=== PATIENT | female | born 1935 | race Caucasian/White ===

== ENCOUNTER 2017-12-09 13:50 | Emergency (ER) | payer MEDICARE, OTHER, SELFPAY ==
[2017-12-09 13:51] VITALS: BP 135/65; PULSE 54; RESP 17; TEMP 37; O2SAT 92; BMI 19.2
[2017-12-09 15:36] LABS: Mucous, Urine 0 SEEN /hpf (<or=2+)
[2017-12-09 15:45] LABS: Color, Urine Yellow (Yellow); Glucose, Dipstick Normal (Normal); Ketone-Dipstick Negative (Negative); Leukocyte Esterase-Dipstick 500 /ul (Negative); Nitrite-Dipstick Negative (Negative); Occult Blood-Urine 50 /ul (Negative); Protein-Dipstick 15 mg/dl (Negative); Urine Bilirubin Dipstick Negative (Negative); Urine Clarity Clear (Clear); Urine Urobilinogen Normal (Normal); Urine pH 6.5 (5.0 - 8.0)
[2017-12-09 15:49] LABS: Bacteria 1+ /hpf (None Seen); Red Blood Cells-Urine 0-5 SEEN /hpf (0-5); Squamous Epithelial Cells - UA 0-5 SEEN /hpf (5-10); White Blood Cells 10-25 SEEN /hpf (0-5)
[2017-12-09 15:49] LABS: Absolute Lymphocyte Count 0.92 X10^3/ul (0.83-4.51); Absolute Neutrophil Count 3.7 X10^3/uL (2.0-7.7); Basophil# 0.02 X10^3/uL; Basophil% 0.4 % (0-1); Eosinophil# 0.04 X10^3/uL; Eosinophils% 0.7 % (0-5); Hematocrit 44.4 % (37-47); Hemoglobin 14.2 g/dl (12.0-15.0); Lymphocyte # 0.92 X10^3/ul (4.0); Lymphocyte % 16.7 % (19-41); Mean Corpuscular Hgb 30.9 pg (27.0-32.0); Mean Corpuscular Volume 96.7 fL (81-99); Mean Platelet Vol. 10.5 fl (6.2-12.0); Monocyte# 0.79 X10^3/uL; Monocyte% 14.3 % (0-10); Neutrophil # 3.73 X10^3/uL (2.7-7.7); Neutrophil % 67.7 % (47-70); Platelet Count 170 K/mm3 (150-450); RBC Distribution Width CV 14.8 % (11.6-14.6); RBC Distribution Width SD 51.4 fl (35.1-43.9); Red Blood Count 4.59 M/mm3 (4.2-5.4); White Blood Count 5.5 K/mm3 (4.4-11.0)
--- NOTE | 2017-12-09 15:50 | RAD_ITS ---
STUDY: X-RAY - LUMBAR SPINE REASON FOR EXAM: Female, 82 years old. Severe low back pain TECHNIQUE: 3 view(s) of the lumbar spine were obtained. COMPARISON: None FINDINGS: Normal lumbar lordosis. There is no substantial scoliosis. There is a grade 1 anterolisthesis of L4 relative to L5, and of L5 relative to S1. There is moderately severe compression deformities of T11, L3, and L4. There is narrowing of the L4-5 and L5-S1 disc spaces. There are calcified plaques of the abdominal aorta. RAD/Lumbar Spine 2 or 3 Views IMPRESSION: 1. Grade 1 anterolisthesis of L4 relative to L5 and of L5 relative to S1. 2. Moderately severe old compression deformities of T11, L3, and L4. 3. Narrowing of the L4-5 and L5-S1 disc spaces. 4. Calcified plaques of the abdominal aorta. Electronically Signed: Olaf Ghosh MD at 16:22 EDT , Service support ,
[2017-12-09 15:55] LABS: POSITIVE COUNT NO; POSITIVE DIFFERENTIAL NO; POSITIVE MORPHOLOGY NO
--- NOTE | 2017-12-09 15:56 | ED.DCSUM_ITS ---
- ER Visit Summary Date of Service: 12/09/17 Chief Complaint: Back pain History of Present Illness: The patient is a 82 F presenting with back pain. Her family states this has been going on for the past 2-3 days. She has a history of chronic back pain but has recently flared up. No known injury. She is scheduled to see her primary care physician Dr. Sampson tomorrow. Family was unsure if she could wait that long. She normally uses a walker at home. She has had no bowel or bladder incontinence. No fever. Patient denies chest pain. She has a history of dementia and history is limited. Physical Examination: Vitals are stable. Patient is afebrile. Alert no acute distress. HEENT exam is unremarkable. Neck is supple. Lungs are clear and equal bilaterally. Heart is regular rate and rhythm. Abdomen is soft nontender nondistended. Extremities are unremarkable. Back is nontender Skin is warm and dry. No focal neurologic deficit. Remainder of exam is unremarkable. Emergency Department Course and Treatment: Patient states her pain is well controlled currently. She is able to get up and walk to the bathroom without difficulty. CBC, chemistries unremarkable other than creatinine 1.2. Urinalysis shows 10-25 white blood cells with 1+ bacteria. Urine culture was sent. She is given Keflex. Discussed with Dr. Sampson who she has an appointment with at 10 AM. He is in agreement with close outpatient follow-up. Advised return to ED if worsening complaints. Disposition: Discharge home Impression: Chronic back pain, UTI This note was generated with [employer] dictation software. It may contain incorrect words, spelling, and punctuation that were not noted in review of the chart prior to signing ED Disposition - Plan for ED Patient: Disposition: Home or Assisted Living Chief Complaint: Back Instructions: ED Neck Back Pain General Prescriptions: Cephalexin [Keflex] 500 mg PO BID #14 capsule Referrals: Burak Sampson Chi, MD [Primary Care Provider] -
[2017-12-09 16:10] LABS: Anion Gap 3 (5-15); BUN 19 mg/dL (7-18); BUN/Creat Ratio 15.8 RATIO (10-20); Calcium,Total 9.3 mg/dL (8.5-10.1); Chloride 105 mmol/L (98-107); EST Glomerular Filtration Rate 46 mL/min (>60); Est Glom Filt Rate - Afr Amer 56 mL/min (>60); Estimated Creatinine Clearance 23.79 ml/min; Glucose 90 mg/dL (74-106); Potassium 4.1 mmol/L (3.5-5.1); Sodium Level 142 mmol/L (136-145)
--- NOTE | 2017-12-09 16:44 | ED.DEP ---
ED Disposition - Plan for ED Patient: Chief Complaint: Back Instructions: ED Neck Back Pain General Prescriptions: Cephalexin [Keflex] 500 mg PO BID #14 capsule Referrals: Burak Sampson Chi, MD [Primary Care Provider] -
[2017-12-09] MEDS: Cephalexin 250 MG Capsule 500 MG PO (16:46)
[2017-12-09 17:38] VITALS: BP 163/61; PULSE 51; RESP 16; O2SAT 93
== END 2017-12-09 17:39 | disposition home or self-care (01) ==
PROVIDERS: Emergency Provider Emergency Medicine; Family Provider Family Medicine Geriatric Medicine; PCP Family Medicine Geriatric Medicine
DX: M54.5 Low back pain (principal); G89.29 Other chronic pain; N39.0 Urinary tract infection, site not specified; I12.9 Hypertensive chronic kidney disease with stage 1 through stage 4 chronic kidney disease, or unspecified chronic kidney disease; N18.9 Chronic kidney disease, unspecified; F03.90 Unspecified dementia, unspecified severity, without behavioral disturbance, psychotic disturbance, mood disturbance, and anxiety; E78.00 Pure hypercholesterolemia, unspecified; M19.90 Unspecified osteoarthritis, unspecified site; Z79.82 Long term (current) use of aspirin; Z79.899 Other long term (current) drug therapy
CPT/HCPCS: 72100; 80048; 81001; 85025; 87086; 87088; 99284

== ENCOUNTER → 2017-12-10 11:30 | Outpatient (CLI) | payer MEDICARE, OTHER, SELFPAY ==
[2017-12-10 12:56] LABS: Absolute Lymphocyte Count 0.78 X10^3/ul (0.83-4.51); Absolute Neutrophil Count 4.6 X10^3/uL (2.0-7.7); Basophil# 0.02 X10^3/uL; Basophil% 0.3 % (0-1); Eosinophil# 0.04 X10^3/uL; Eosinophils% 0.7 % (0-5); Hematocrit 44.8 % (37-47); Hemoglobin 13.9 g/dl (12.0-15.0); Lymphocyte # 0.78 X10^3/ul (4.0); Lymphocyte % 12.8 % (19-41); Mean Corpuscular Hgb 30.1 pg (27.0-32.0); Mean Platelet Vol. 11.4 fl (6.2-12.0); Monocyte# 0.67 X10^3/uL; Neutrophil # 4.59 X10^3/uL (2.7-7.7); Platelet Count 188 K/mm3 (150-450); RBC Distribution Width CV 14.7 % (11.6-14.6); RBC Distribution Width SD 51.5 fl (35.1-43.9); Red Blood Count 4.62 M/mm3 (4.2-5.4); White Blood Count 6.1 K/mm3 (4.4-11.0)
[2017-12-10 12:57] LABS: POSITIVE COUNT NO; POSITIVE DIFFERENTIAL NO; POSITIVE MORPHOLOGY NO
[2017-12-10 13:22] LABS: ALB/GLOB Ratio 0.8 RATIO (0.9-2.4); AST(SGOT) 16 U/L (15-37); Alanine Aminotransfer ALT/SGPT 19 U/L (13-56); Albumin, Serum 3.3 g/dL (3.2-5.0); Alkaline Phosphatase 83 U/L (45-117); Anion Gap 5 (5-15); BUN 22 mg/dL (7-18); BUN/Creat Ratio 40.7 RATIO (10-20); Calcium,Total 9.4 mg/dL (8.5-10.1); Chloride 103 mmol/L (98-107); Creatinine, Serum 0.54 mg/dL (0.55-1.02); EST Glomerular Filtration Rate 115 mL/min (>60); Est Glom Filt Rate - Afr Amer 139 mL/min (>60); Globulin 4.1 g/dL (2.2-4.2); Glucose 90 mg/dL (74-106); Protein, Total 7.4 g/dL (6.4-8.2); Sodium Level 140 mmol/L (136-145); Thyroid Stim Hormone (TSH) 1.02 uIU/mL (0.358-3.74)
[2017-12-11 08:43] LABS: Vitamin D,25 Hydroxy 29.4 ng/mL (29.95-100.01)
== END ==
PROVIDERS: Family Provider Family Medicine Geriatric Medicine; PCP Family Medicine Geriatric Medicine; Visit Provider Family Medicine Geriatric Medicine
DX: E55.9 Vitamin D deficiency, unspecified (principal); I10 Essential (primary) hypertension
CPT/HCPCS: 36415; 80053; 82306; 84443; 85025

== ENCOUNTER → 2017-12-16 13:26 | Outpatient (CLI) | payer MEDICARE, OTHER, SELFPAY | PROVIDERS: Visit Provider Obstetrics & Gynecology | DX: M54.9 Dorsalgia, unspecified (principal) | CPT/HCPCS: 87086; 87088 ==

== ENCOUNTER 2018-02-21 21:06 | Inpatient (IN) | payer MEDICARE, OTHER, SELFPAY ==
[2018-02-21 21:07] VITALS: BP 111/51; PULSE 63; RESP 24; TEMP 36.8; O2SAT 95; BMI 18.2
--- NOTE | 2018-02-21 21:22 | ED.VISSUMM ---
- ER Visit Summary Date of Service: 02/21/18 Chief Complaint: Back pain History of Present Illness: The patient is a 82 F presenting with mid and lower back pain. She states this started approximately a week ago. She denies trauma. She has a history of chronic back pain and is in pain management. Family states over the past week she has had more difficulty getting up and walking. She lives at home with her . She denies fever. Denies chest pain or shortness of breath. Denies other complaints. Physical Examination: Vitals are stable. Patient is afebrile. Alert no acute distress. HEENT exam is unremarkable. Neck is supple. Nontender Lungs are clear and equal bilaterally. Heart is regular rate and rhythm. Abdomen is soft nontender nondistended. Back: Diffuse thoracic and lumbar tenderness Extremities are unremarkable. Skin is warm and dry. No focal neurologic deficit. Remainder of exam is unremarkable. Emergency Department Course and Treatment: Patient given morphine, Zofran IV. CBC, chemistries unremarkable other than hemoglobin 10.5, BUN 25, creatinine 0.54. Troponin is negative. Chest x-ray shows no acute process. Thoracic lumbar spine x-rays show osteopenia, kyphosis, old compression of T6 and T11. New mild superior endplate compression deformities of L1 and L2 since the prior exam of December 09, 2017. Stable moderate compression deformities of L3 and L4. Exaggerated lumbar lordosis with stable degenerative anterolisthesis of L3, L4 and L5 with intervening degenerative disc changes. Severe posterior facet arthrosis. Patient is unable to sit up on her own or get out of bed. states she will not be able to get up and go to the bathroom on her own. Will discuss with the hospitalist for admission. Disposition: Admission Impression: Intractable back pain, compression fractures This note was generated with [employer] dictation software. It may contain incorrect words, spelling, and punctuation that were not noted in review of the chart prior to signing ED Disposition - Plan for ED Patient: Chief Complaint: Back Referrals: Burak Sampson Chi, MD [Primary Care Provider] -
[2018-02-21] MEDS: Morphine 2 MG/ML Syringe IV (21:30)
[2018-02-21] MEDS: Ondansetron 4 MG/2 ML Vial IV (21:30)
[2018-02-21 21:53] LABS: Absolute Lymphocyte Count 1.08 X10^3/ul (0.83-4.51); Absolute Neutrophil Count 4.1 X10^3/uL (2.0-7.7); Basophil# 0.03 X10^3/uL; Basophil% 0.5 % (0-1); Eosinophil# 0.07 X10^3/uL; Eosinophils% 1.2 % (0-5); Hemoglobin 10.5 g/dl (12.0-15.0); Lymphocyte # 1.08 X10^3/ul (4.0); Lymphocyte % 17.9 % (19-41); Mean Corp Hgb Conc 29.2 g/gl (32-36); Mean Corpuscular Volume 85.7 fL (81-99); Mean Platelet Vol. 10.9 fl (6.2-12.0); Monocyte# 0.76 X10^3/uL; Monocyte% 12.6 % (0-10); Neutrophil # 4.09 X10^3/uL (2.7-7.7); Neutrophil % 67.8 % (47-70); Platelet Count 276 K/mm3 (150-450); RBC Distribution Width CV 15.8 % (11.6-14.6); RBC Distribution Width SD 49.7 fl (35.1-43.9)
--- NOTE | 2018-02-21 21:57 | NURSING ---
RADIOLOGY INFORMED ME WHEN MOVING PATIENT SHE RECIEVED A SKIN TEAR ON HER LEFT ARM. I INFOMRED THE NURSE AT [id number]
[2018-02-21 22:00] LABS: POSITIVE COUNT NO; POSITIVE DIFFERENTIAL NO; POSITIVE MORPHOLOGY NO
[2018-02-21 22:07] LABS: Anion Gap 9 (5-15); BUN 25 mg/dL (7-18); BUN/Creat Ratio 46.5 RATIO (10-20); Calcium,Total 9.4 mg/dL (8.5-10.1); Chloride 108 mmol/L (98-107); Creatinine, Serum 0.54 mg/dL (0.55-1.02); EST Glomerular Filtration Rate 116 mL/min (>60); Est Glom Filt Rate - Afr Amer 140 mL/min (>60); Estimated Creatinine Clearance 28.05 ml/min; Glucose 99 mg/dL (74-106); Potassium 3.9 mmol/L (3.5-5.1); Sodium Level 145 mmol/L (136-145)
[2018-02-21 22:30] LABS: Bacteria 0 SEEN /hpf (None Seen); Mucous, Urine 0 SEEN /hpf (<or=2+); White Blood Cells 0 SEEN /hpf (0-5)
[2018-02-21 22:36] LABS: Color, Urine Yellow (Yellow); Glucose, Dipstick Normal (Normal); Ketone-Dipstick Negative (Negative); Leukocyte Esterase-Dipstick Negative /ul (Negative); Nitrite-Dipstick Negative (Negative); Occult Blood-Urine 25 /ul (Negative); Protein-Dipstick 15 mg/dl (Negative); Specific Gravity, Urine 1.025 (1.002-1.030); Urine Bilirubin Dipstick Negative (Negative); Urine Clarity Clear (Clear); Urine Urobilinogen Normal (Normal)
[2018-02-21 22:51] LABS: Red Blood Cells-Urine 0-5 SEEN /hpf (0-5); Squamous Epithelial Cells - UA 0-5 SEEN /hpf (5-10)
--- NOTE | 2018-02-21 23:11 | PCM.HP.STD ---
Problem List (1) Intractable back pain Status: Acute (2) PAF (paroxysmal atrial fibrillation) Status: Chronic (3) Osteoarthritis Status: Chronic Qualifiers: Osteoarthritis location: unspecified site (4) Dementia Status: Chronic Qualifiers: Dementia type: Alzheimer's disease Dementia behavioral disturbance: without behavioral disturbance (5) HLD (hyperlipidemia) Status: Chronic Qualifiers: Hyperlipidemia type: pure hypercholesterolemia Qualified Code(s): E78.00 - Pure hypercholesterolemia, unspecified; E78.0 - Pure hypercholesterolemia (6) Osteoarthritis, hip, bilateral Status: Chronic Qualifiers: Osteoarthritis type: unspecified Qualified Code(s): M16.0 - Bilateral primary osteoarthritis of hip (7) Chronic kidney disease Status: Chronic Qualifiers: Chronic kidney disease stage: stage 3 (moderate) Qualified Code(s): N18.3 - Chronic kidney disease, stage 3 (moderate) (8) Alzheimer's disease Status: Chronic Qualifiers: Alzheimer's disease onset: unspecified onset Dementia behavioral disturbance: without behavioral disturbance Qualified Code(s): G30.9 - Alzheimer's disease, unspecified; F02.80 - Dementia in other diseases classified elsewhere without behavioral disturbance (9) Lumbar spinal stenosis Status: Chronic Qualifiers: Neurogenic claudication status: unspecified Qualified Code(s): M48.061 - Spinal stenosis, lumbar region without neurogenic claudication (10) HTN (hypertension) Status: Chronic Qualifiers: Hypertension type: essential hypertension Qualified Code(s): I10 - Essential (primary) hypertension History of Present Illness Date of Admission: 02/21/18 Chief Complaint: Intractable thoracic and lumbar back pain The patient is a 82 y/o F w/ PMHx: CKD stage III, HTN, HLD, Alzheimer's dementia, Severe OA w/ Chronic BL Hip pain with sciatica, Chronic Back pain w/ known compression deformities evaluated per Dr. Dowling prior w/ medical management recommendation, KIP who presents to the [facility] ED on 02/21/18 w/ ongoing history of severe lumbar and thoracic back pain x 1 week with severe debility and inability to function. Husbands notes she has not been able to ambulate well at home and has had ongoing pain and debility. He also notes she has had decreased oral intake over the last week secondary to her pain. She rates her pain prior to ED regimen 10/, currently improved to 3-5/10, worse with any effort attempts. In the ED work-up included T 98.2, heart rate 63, BP 111/51, respiratory rate 24, 95% room air, CBC with WBC 6, hemoglobin 10.5, platelet 276 without market left shift, BMP with chloride 108, BUN/creatinine 25/0.54, troponin less than 0.015, urinalysis with evidence of dehydration with specific gravity 1.025 otherwise not marked appearing, lumbar plain film with new mild superior endplate compression deformities of L1 and and L2, stable moderate compression deformities of L3 and L4, exaggerated lumbar lordosis with stable degenerative anterior listhesis of L3, L4 and L5 with intervening degenerative disc disease, severe posterior facet arthrosis, thoracic plain film with severe generalized osteopenia, severe thoracic kyphosis and old compression deformities of T6 and T11, chest x-ray with no acute cardiopulmonary findings. Past Medical History Past Medical History (Chronic Problems): Chronic Problems PAF (paroxysmal atrial fibrillation) (Chronic) Lumbar compression fracture (Chronic) Osteoarthritis (Chronic) CKD (chronic kidney disease) stage 3, GFR 30-59 ml/min (Chronic) Dementia (Chronic) HLD (hyperlipidemia) (Chronic) Osteoarthritis, hip, bilateral (Chronic) Chronic kidney disease (Chronic) Alzheimer's disease (Chronic) Lumbar spinal stenosis (Chronic) HTN (hypertension) (Chronic) Allergies latex Allergy (Verified 02/21/18 21:06) Swelling Home Medications: Ambulatory Orders Medication Instructions Recorded Baclofen [Lioresal] 10 mg PO QHS 02/04/17 Donepezil HCl [Aricept] 10 mg PO QHS 02/04/17 Memantine Hydrochloride [Namenda] 10 mg PO BID 02/04/17 Potassium Chloride [Klor-Con M20] 20 meq PO DAILY 02/04/17 Aspirin [Aspirin, Baby] 81 mg PO DAILY@0800 #1 tab.chew 02/12/17 Acetaminophen [Tylenol] 1,000 mg PO Q8H PRN PRN tablet 03/08/17 Menthol/Lanolin/Calamine/Znox 1 applic TOPICAL TID #1 tube 03/08/17 [Calmoseptine Ointment] Metoprolol Tartrate [Lopressor 12.5 mg PO BID #30 tablet 03/08/17 (beta gabriel)] Nystatin Powder [Mycostatin Powder] 1 applic TOPICAL #1 bottle 03/08/17 Vitamin D2 50,000 unit PO QWEEK 02/21/18 Surgical History: hysterectomy, tonsillectomy Psychiatric History: No pertinent psych hx HYDROBLASTER History: No pertinent HYDROBLASTER history Lives: Spouse/ Significant Other Smoking Status: Never smoker Tobacco Use: Non-smoker Alcohol: None Drugs: None - *Family History Maternal History Items: Cancer Paternal History Items: Heart Disease Review of Systems Constitutional: Reports: Anorexia, Malaise, Weakness, Fatigue. Denies: Chills, Fever, Weight Change HEENT: Denies: Head Aches, Sinus Congestion, Sinus Drainage Cardiovascular: Denies: Chest Pain, Palpitations Respiratory: Denies: Cough, Shortness of Breath, Shortness of breath at rest, Shortness of breath upon exertion, Sputum production Gastrointestinal: Denies: Abdominal Pain, Nausea, Vomiting Genitourinary: Denies: Dysuria Musculoskeletal: Reports: Back Pain, Leg Pain. Denies: Joint Pain, Joint Tenderness Skin: Denies: Rash, Wounds Neurological: Reports: Balance problems. Denies: Focal weakness, Numbness, Tingling Psychiatric: Denies: Anxiety, Depression, Homicidal Ideations, Suicidal Ideations Hematologic/ Lymphatic: Denies: Easy Bruising, Easy Bleeding VTE Information - Inpt Only VTE Present on Admission: No VTE Mechan Device Prophylaxis: SCD's VTE Pharm Prophylaxis ordered?: Yes Patient Problems: Active and Suspected Problems Intractable back pain (Acute) Subjective: Seated upright in the ED bed, notes pain improved with regimen but still debilitated, noting her intake has been decreased secondary to her pain. Objective: Physical Examination: General: awake, alert, oriented x 3 and cooperative, seated upright in ED bed, notes pain improved w/ ED regimen. Skin: normal color, turgor, no icterus, cyanosis. HEENT: AT/NC, EOMI, PERRLA, dry MM, no carotid bruits or JVD noted. Lungs: CTA bilaterally, moderate effort, moderate decrease BL bases, no rales, ronchi or wheezing. Heart: Regular rate and rhythm; no gallop, rub audible, SM. Abdomen: soft, thin cachectic habitus, NTTP, ND, normal BS, no HSM. Extremities: no cyanosis, clubbing, or edema, mild discomfort to palpation BL Hip laterally, more discomfort w/ ambulation attempts. Neurological: patient awake, alert, oriented as noted; cognitive function appears baseline intact, noted dementia history, moderate to severe per spouse; pupils equally reactive to light and accomodation; cranial nerves II-XII grossly normal, moving all 4 extremities but limited given severe lumbar and thoracic back pain, did have recent ED pain regimen w/ improvement, continued + SLR, + spinal discomfort w/ direct palpation, strength severely globally decreased. Psychiatric: affect appears normal, no acute evidence of depressive or anxiety feelings. - Physical Exam Vital Signs Temp Pulse Resp BP Pulse Ox 98.2 F 63 24 H 111/51 L 95 02/21/18 21:07 02/21/18 21:07 02/21/18 21:07 02/21/18 21:07 02/21/18 21:07 Oxygen Delivery Method Room Air Weight: 87 lb 4.849 oz Body Mass Index (BMI) 18.2 Laboratory Tests Past 24 Hrs 02/21/18 02/21/18 02/21/18 21:34 21:34 22:25 WBC 6.0 RBC 4.20 Hgb 10.5 L Hct 36.0 L MCV 85.7 MCH 25.0 L MCHC 29.2 L RDW 15.8 H RDW Differential 49.7 H Plt Count 276 MPV 10.9 Immature Gran % (Auto) 0.000 Neut % (Auto) 67.8 Lymph % (Auto) 17.9 L [place] % (Auto) 12.6 H Eos % (Auto) 1.2 Baso % (Auto) 0.5 Absolute Neuts (auto) 4.1 Absolute Lymphs (auto) 1.08 Total Counted Not Reportable Sodium 145 Potassium 3.9 Chloride 108 H Carbon Dioxide 28.0 Anion Gap 9 BUN 25 H Creatinine 0.54 L Estim Creat Clear Calc 28.05 Est GFR (MDRD) Af Amer 140 Est GFR (MDRD) Non-Af 116 BUN/Creatinine Ratio 46.5 H Glucose 99 Calcium 9.4 Troponin I < 0.015 Urine Color Yellow Urine Clarity Clear Urine pH 5.0 Ur Specific [place] 1.025 Urine Protein 15 H Urine Glucose (UA) Normal Urine Ketones Negative Urine Occult Blood 25 H Urine Nitrite Negative Urine Bilirubin Negative Urine Urobilinogen Normal Ur Leukocyte Esterase Negative Urine RBC 0-5 SEEN Urine WBC 0 SEEN Ur Squamous Epith Cells 0-5 SEEN Urine Bacteria 0 SEEN Urine Mucus 0 SEEN Assessment/Plan All Active Problems Intractable back pain (Acute) Sacral fracture, closed (Acute) Bilateral hip pain (Acute) Fall (Acute) New onset atrial fibrillation (Acute) The patient is a 82 y/o F w/ PMHx: CKD stage III, HTN, HLD, Alzheimer's dementia, Severe OA w/ Chronic BL Hip pain with sciatica, Chronic Back pain w/ known compression deformities evaluated per Dr. Dowling prior w/ medical management recommendation, PAF who presents to the [facility] ED on 02/21/18 w/ ongoing history of severe lumbar and thoracic back pain x 1 week with severe debility and inability to function. Husbands notes she has not been able to ambulate well at home and has had ongoing pain and debility. (1) Acute on Chronic Intractable Thoracic and Lumbar Back Pain w/ New Compression Fractures: ED lumbar plain film with new mild superior endplate compression deformities of L1 and and L2, stable moderate compression deformities of L3 and L4, exaggerated lumbar lordosis with stable degenerative anterior listhesis of L3, L4 and L5 with intervening degenerative disc disease, severe posterior facet arthrosis, thoracic plain film with severe generalized osteopenia, severe thoracic kyphosis and old compression deformities of T6 and T11. Will admit to [facility], maintain on fall precautions, frequent positioning, po/IV pain regimen, flexeril PRN, anti-emetics, bowel regimen, administered low dose toradol x 3 doses. Will consult PT and OT for evaluation. CM consulted. Dr. Dowling who follows the patient will also be consulted. (2) Paroxsymal atrial fibrillation: Maintain on home metoprolol regimen, too high risk for anticoagulation, baby ASA only. (3) Moderate to Severe Protein-Calorie Malnutrition: Evidenced per BMI, habitus w/ muscle and fat loss, nutrition consulted. (4) Hypertension: Continue metoprolol, BP normal range in the ED. (5) Hyperlipidemia: Not on agent, defer to outpatient. (6) Alzheimer's Dementia, Unclear history of behavioral disturbance: Maintain on home namenda, aricept regimen. (7) CKD stage III w/ Suspected Mild Dehydration: Admission BUN/Cr 25/0.54, SG elevated, will gently hydrate, repeat BMP in AM. (8) DVT Prophylaxis: SCDs, heparin. (9) CODE status: Discussed CODE status at length including difference between FULL code, DNR-CCA and DNR-CC status. Following discussions about the differences in these status, requested continued DNR-CCA, no intubation status. She has living will in place and her who is present is her HCPOA. Advanced Care Planning Face to Face Time: 18 minutes. Code Visit Inpatient E&M: 49205 Init Hosp L3 Procedures: 85442 Advncd Care Plan 30 Min
[2018-02-21 23:24] VITALS: BP 119/54; PULSE 50; RESP 18; TEMP 36.6; O2SAT 95
[2018-02-21 23:27] VITALS: BP 119/54; PULSE 50; RESP 18; TEMP 36.6; O2SAT 95
[2018-02-22] VITALS (8 sets, daily range): BP systolic 117–139; BP diastolic 56–69; PULSE 45–55; RESP 14–16; TEMP 36.8–37.1; O2SAT 93–98; BMI 17.5; BMI 17.6
[2018-02-22 00:24] LABS: Magnesium 2.3 mg/dL (1.6-2.6)
[2018-02-22] MEDS: 0.9% Normal Saline 1,000 ML 100 ML IV ×3 (01:07→21:04)
[2018-02-22] MEDS: Ketorolac 15 MG/ML Vial IV ×3 (01:07→14:53)
[2018-02-22] MEDS: Nystatin Powder 15gm Bottle 1 APPLIC TOPICAL ×2 (06:29→21:03)
[2018-02-22 07:13] LABS: Absolute Lymphocyte Count 0.99 X10^3/ul (0.83-4.51); Absolute Neutrophil Count 3.6 X10^3/uL (2.0-7.7); Basophil# 0.03 X10^3/uL; Basophil% 0.5 % (0-1); Eosinophil# 0.12 X10^3/uL; Eosinophils% 2.2 % (0-5); Hematocrit 32.1 % (37-47); Hemoglobin 9.3 g/dl (12.0-15.0); Lymphocyte # 0.99 X10^3/ul (4.0); Lymphocyte % 17.8 % (19-41); Mean Corpuscular Hgb 25.1 pg (27.0-32.0); Mean Corpuscular Volume 86.8 fL (81-99); Mean Platelet Vol. 10.8 fl (6.2-12.0); Monocyte# 0.76 X10^3/uL; Monocyte% 13.7 % (0-10); Neutrophil # 3.64 X10^3/uL (2.7-7.7); Neutrophil % 65.6 % (47-70); Platelet Count 227 K/mm3 (150-450); RBC Distribution Width CV 15.6 % (11.6-14.6); RBC Distribution Width SD 48.4 fl (35.1-43.9); White Blood Count 5.6 K/mm3 (4.4-11.0)
[2018-02-22 07:16] LABS: POSITIVE COUNT NO; POSITIVE DIFFERENTIAL NO; POSITIVE MORPHOLOGY NO
[2018-02-22 07:34] LABS: Anion Gap 8 (5-15); BUN 22 mg/dL (7-18); Calcium,Total 8.6 mg/dL (8.5-10.1); Chloride 111 mmol/L (98-107); Creatinine, Serum 0.39 mg/dL (0.55-1.02); EST Glomerular Filtration Rate 170 mL/min (>60); Est Glom Filt Rate - Afr Amer 205 mL/min (>60); Estimated Creatinine Clearance 26.99 ml/min; Glucose 74 mg/dL (74-106); Potassium 4.2 mmol/L (3.5-5.1); Sodium Level 145 mmol/L (136-145)
--- NOTE | 2018-02-22 08:50 | PCM.PN.HOSP ---
Patient Problems: Active and Suspected Problems Intractable back pain (Acute) Subjective: Patient seen and examined. She was admitted overnight with a complaint of severe back pain of one week with severe debility and inability to function. She also had decreased oral intake due to her pain. Imaging done in the ED showed new mild superior endplate compression fractures of L1 and L2 and stable moderate compression deformities of L3 and L4. She also had some anterior listhesis and degenerative disc disease and old compression fractures of T6 and T11. She has been managed for acute on chronic back pain due to compression fractures. Pain management has been consulted. Patient says pain control is better. Pain is now ~ 4/10. Still unable to weight-bear very well he needed a 2 person assist to be able to even use the commode. She denies any chest pain, shortness of breath, abdominal pain, numbness in her lower extremities, urinary or fecal incontinence, diarrhea vomiting. 12 point review of systems otherwise negative. Labs and vitals reviewed. Vitals/I&O's: Vital Signs Temp Pulse Resp BP Pulse Ox 97.9 F 45 L 15 119/54 L 94 02/21/18 23:27 02/22/18 00:06 02/22/18 06:06 02/21/18 23:27 02/22/18 07:43 Oxygen Delivery Method Room Air Weight: 84 lb Body Mass Index (BMI) 17.5 Intake and Output for Last 24 Hours 02/20/18 02/21/18 02/22/18 23:59 23:59 23:59 Intake Total 663 / 663 Balance 663 / 663 General: Alert, Cooperative, No apparent distress HEENT: Atraumatic, PERRLA, EOMI, Normocephalic Oral: Dry Mucosa Neck: Supple, No JVD, Negative Carotid Bruits Lungs: Clear to auscultation, Normal air movement, No rhonchi, No wheeze Cardiovascular: Regular Rhythm, Normal S1, Normal S2, Bradycardic Abdomen: Bowel Sounds Present, Soft, Non Tender, Non-Distended, No Hepato-splenomegaly Extremities: No clubbing, No cyanosis, No edema, Capillary Refill Less than 3 Seconds Skin: No rashes, No breakdown Musculoskeletal: No Tenderness to Palpation of Joints or Extremities, Cachexia, Muscle Wasting Lymphatic: No Cervical, Supraclavicular, or Inguinal Adenopathy Neurological: Cranial nerves II-XII grossly intact, Neuro grossly intact Psych/Mental Status: Normal Affect, Alert and oriented to time, place, person, mood and affect Laboratory Results 02/22/18 06:16: WBC 5.6, RBC 3.70 L, Hgb 9.3 L, Hct 32.1 L, MCV 86.8, MCH 25.1 L, MCHC 29.0 L, RDW 15.6 H, RDW Differential 48.4 H, Plt Count 227, MPV 10.8, Immature Gran % (Auto) 0.200, Neut % (Auto) 65.6, Lymph % (Auto) 17.8 L, [place] % (Auto) 13.7 H, Eos % (Auto) 2.2, Baso % (Auto) 0.5, Absolute Neuts (auto) 3.6, Absolute Lymphs (auto) 0.99, Total Counted Not Reportable 02/22/18 06:16: Sodium 145, Potassium 4.2, Chloride 111 H, Carbon Dioxide 26.0, Anion Gap 8, BUN 22 H, Creatinine 0.39 L, Estim Creat Clear Calc 26.99, Est GFR (MDRD) Af Amer 205, Est GFR (MDRD) Non-Af 170, BUN/Creatinine Ratio 57.0 H, Glucose 74, Calcium 8.6 Current Medications Acetaminophen (Tylenol) 650 mg PO Q6H PRN PRN PRN Reason: Non-cardiac pain (mod-severe) Hydrocodone Bitart/Acetaminophen ([place] 5mg-325mg) 1 - 2 tablet PO Q6H PRN PRN PRN Reason: Moderate-severe pain Al Hydroxide/Mg Hydroxide (Mylanta Ii) 30 ml PO Q6H PRN PRN PRN Reason: Gastric burning Aspirin (Aspirin, Baby) 81 mg PO DAILY@0800 [facility] Baclofen (Lioresal) 10 mg PO QHS [facility] Calamine/Phenol (Calmoseptine Ointment) 1 applic TOPICAL TID [facility] PRN Reason: Protocol Cyclobenzaprine HCl (Flexeril) 5 mg PO TID PRN PRN PRN Reason: strain, spasm Donepezil HCl (Aricept) 10 mg PO QHS [facility] Heparin Sodium (Porcine) (Heparin Na) 5,000 unit SC Q12 [facility] Sodium Chloride () 1,000 mls @ 100 mls/hr IV .Q10H [facility] Last Admin: 02/22/18 01:07 Dose: 100 mls/hr Ketorolac Tromethamine (Toradol) 15 mg IV Q8 [facility] Stop: 02/22/18 14:01 Last Admin: 02/22/18 06:12 Dose: 15 mg Magnesium Hydroxide (Milk Of Magnesia) 30 ml PO DAILY PRN PRN PRN Reason: Constipation Memantine (Namenda) 10 mg PO BID [facility] Metoprolol Tartrate (Lopressor (Beta Chris)) 12.5 mg PO BID [facility] Morphine Sulfate () 1 - 2 mg IV Q4H PRN PRN PRN Reason: PAIN Nystatin (Mycostatin Powder) 1 applic TOPICAL [facility] PRN Reason: Protocol Last Admin: 02/22/18 06:29 Dose: 1 applicatio Ondansetron HCl (Zofran) 4 mg IV Q8H PRN PRN PRN Reason: NAUSEA Potassium Chloride (K-Dur) 20 meq PO DAILY [facility] Promethazine HCl (Phenergan) 12.5 mg IV Q6H PRN PRN PRN Reason: NAUSEA/VOMITING Sodium Chloride () 5 - 30 ml IV UD PRN PRN Reason: SALINE FLUSH Medical Necessity - Tobacco Use Smoking Status: Never smoker Tobacco Use: Non-smoker Assessment/Plan All Active Problems Intractable back pain (Acute) Sacral fracture, closed (Acute) Bilateral hip pain (Acute) Fall (Acute) New onset atrial fibrillation (Acute) 1. Acute on chronic severe back pain due to compression fractures States pain is improved today. Has history of chronic compression fractures. Follows up with Dr. Dowling Imaging showed new mild superior endplate compression deformities of L1 and to a stable moderate compression deformities of L3-L4. Fall precautions. Continue current pain meds. PTOT on board. Will need intensive psychotherapy. consulted. will need placement. on baclofen and flexeril. On [place] for pain will start on PO vitamin D supplementation and check vitamin D level 2. Paroxysmal Afib on metoprolol 12.5mg bid\, which is the lowest dose possible. Patient is bradycardic, with HR ~ 45. will hold metoprolol this morning and monitor HR high risk for bleed due to falls. Not on oral anticoagulation. on baby aspirin. 3. Asymptomatic bradycardia HR is 45 this morning. Has been running ~ 50s. On metoprolol. Currently asymptomatic; however I am concerned about risk for falls in light of her advanced age and frail nature. will get EKG and hold metoprolol dose this morning, and monitor HR. 4. Moderate to severe protein calorie malnutrition BMI is 17.6. Patient is very cachectic Nutrition consulted. ensure supplements 5. Alzheimer's dementia: on Namenda and Aricept 6. Hypertension: on metoprolol. BP controlled. Is bradycardic. Will get EKG and adjust meds as needed. 7. DVT prophylaxis: heparin Code status: DNR CCA This note was generated with [employer] software. It may contain incorrect words, spelling, and punctuation that were not noted in checking the note before signing. Code Visit Inpatient E&M: 96448 Subs Hosp L3
[2018-02-22] MEDS: Heparin Injection (Vial) 5,000 UNIT/ML VIAL 5000 UNIT SC ×2 (09:56→21:13)
[2018-02-22] MEDS: Aspirin 81 MG TAB.CHEW PO (09:56)
[2018-02-22] MEDS: Memantine Hydrochloride 10 MG Tablet PO ×2 (09:57→21:05)
--- NOTE | 2018-02-22 11:12 | CASEMGMT ---
See assessment. SW spoke w/pt, she has dementia, was able to answer some questions, was not sure of the answers on others. Pt confirmed lives w/, he helps w/cooking, cleaning, does the driving. Pt could not remember if helps with medication. She did say someone comes in to help her with bathing. Pt would like to go home at discharge, does not remember going to TCU last year. Pt is okay w/SW calling . SW called , there is no answer. It is anticipated pt will be here through Saturday. SW/MOO will follow up w/pt Saturday if she is still here and not able to be discharged home by then. GALEN Rader, CORRECTIVE THERAPY AIDE TEACHER
[2018-02-22] MEDS: Menthol/Lanolin/Calamine/Znox 113 GM Tube 1 APPLIC TOPICAL (21:03)
[2018-02-22] MEDS: Donepezil HCl 10 MG Tablet PO (21:04)
[2018-02-22] MEDS: Baclofen 10 MG Tablet PO (21:16)
[2018-02-22] MEDS: Pantoprazole Sodium 20 MG Tablet PO (22:32)
[2018-02-23] VITALS (7 sets, daily range): BP systolic 136–146; BP diastolic 65–96; PULSE 52–61; RESP 16–20; TEMP 36.6–36.8; O2SAT 95–98
[2018-02-23] MEDS: Nystatin Powder 15gm Bottle 1 APPLIC TOPICAL ×2 (06:23→21:32)
[2018-02-23] MEDS: 0.9% Normal Saline 1,000 ML 100 ML IV (06:23)
[2018-02-23] MEDS: Menthol/Lanolin/Calamine/Znox 113 GM Tube 1 APPLIC TOPICAL ×3 (06:23→21:41)
[2018-02-23 06:32] LABS: Absolute Lymphocyte Count 0.84 X10^3/ul (0.83-4.51); Absolute Neutrophil Count 3.4 X10^3/uL (2.0-7.7); Basophil# 0.03 X10^3/uL; Basophil% 0.6 % (0-1); Eosinophil# 0.12 X10^3/uL; Eosinophils% 2.5 % (0-5); Hematocrit 30.1 % (37-47); Hemoglobin 8.8 g/dl (12.0-15.0); Lymphocyte # 0.84 X10^3/ul (4.0); Lymphocyte % 17.2 % (19-41); Mean Corp Hgb Conc 29.2 g/gl (32-36); Mean Corpuscular Hgb 25.3 pg (27.0-32.0); Mean Corpuscular Volume 86.5 fL (81-99); Mean Platelet Vol. 10.6 fl (6.2-12.0); Monocyte# 0.45 X10^3/uL; Monocyte% 9.2 % (0-10); Neutrophil # 3.42 X10^3/uL (2.7-7.7); Neutrophil % 70.3 % (47-70); Platelet Count 206 K/mm3 (150-450); RBC Distribution Width CV 15.5 % (11.6-14.6); RBC Distribution Width SD 47.6 fl (35.1-43.9); Red Blood Count 3.48 M/mm3 (4.2-5.4); White Blood Count 4.9 K/mm3 (4.4-11.0)
[2018-02-23 06:33] LABS: POSITIVE COUNT NO; POSITIVE DIFFERENTIAL NO; POSITIVE MORPHOLOGY NO
[2018-02-23 06:56] LABS: Anion Gap 9 (5-15); BUN 17 mg/dL (7-18); Calcium,Total 8.1 mg/dL (8.5-10.1); Chloride 111 mmol/L (98-107); Creatinine, Serum 0.34 mg/dL (0.55-1.02); EST Glomerular Filtration Rate 196 mL/min (>60); Est Glom Filt Rate - Afr Amer 238 mL/min (>60); Estimated Creatinine Clearance 26.99 ml/min; Glucose 73 mg/dL (74-106); Potassium 3.6 mmol/L (3.5-5.1); Sodium Level 144 mmol/L (136-145)
[2018-02-23] MEDS: Aspirin 81 MG TAB.CHEW PO (09:30)
[2018-02-23] MEDS: Heparin Injection (Vial) 5,000 UNIT/ML VIAL 5000 UNIT SC ×2 (11:05→21:40)
[2018-02-23] MEDS: Pantoprazole Sodium 20 MG Tablet PO ×2 (11:05→21:33)
[2018-02-23] MEDS: Memantine Hydrochloride 10 MG Tablet PO ×2 (11:05→21:31)
--- NOTE | 2018-02-23 11:44 | PCM.PROGNOTE ---
<Jeannette King - Last Filed: 02/23/18 12:00> Patient Problems: Active and Suspected Problems Intractable back pain (Acute) Subjective: Patient seen and examined. No acute events overnight. States back pain is improved. Resting comfortably in bed. She states she does not know if she has been out of bed or with the plan is at discharge. Denies other complaints. - Physical Exam General: Alert, Cooperative, No apparent distress HEENT: Atraumatic, PERRLA, EOMI, Normocephalic Neck: Supple, No JVD, Negative Carotid Bruits Lungs: Clear to auscultation, Normal air movement Cardiovascular: Regular Rhythm, Normal S1, Normal S2, No murmurs, Bradycardic Abdomen: Bowel Sounds Present, Soft, Non Tender, Non-Distended Extremities: No clubbing, No cyanosis, No edema, Capillary Refill Less than 3 Seconds Skin: No rashes, No breakdown Musculoskeletal: No Tenderness to Palpation of Joints or Extremities, Cachexia, Muscle Wasting Neurological: Cranial nerves II-XII grossly intact, Neuro grossly intact Psych/Mental Status: Normal Affect, Appropriate Vital Signs Temp Pulse Resp BP Pulse Ox 98.2 F 59 L 20 H 140/65 H 98 02/23/18 09:15 02/23/18 09:15 02/23/18 09:15 02/23/18 09:15 02/23/18 09:15 Oxygen Delivery Method Room Air Weight: 84 lb 0.008 oz Body Mass Index (BMI) 17.5 Intake and Output for Last 24 Hours 02/21/18 02/22/18 02/23/18 23:59 23:59 23:59 Intake Total 1990 1474 / 1474 Balance 1990 1474 / 1474 Laboratory Tests Past 24 Hrs 02/23/18 02/23/18 06:02 06:02 WBC 4.9 RBC 3.48 L Hgb 8.8 L Hct 30.1 L MCV 86.5 MCH 25.3 L MCHC 29.2 L RDW 15.5 H RDW Differential 47.6 H Plt Count 206 MPV 10.6 Immature Gran % (Auto) 0.200 Neut % (Auto) 70.3 H Lymph % (Auto) 17.2 L [place] % (Auto) 9.2 Eos % (Auto) 2.5 Baso % (Auto) 0.6 Absolute Neuts (auto) 3.4 Absolute Lymphs (auto) 0.84 Total Counted Not Reportable Sodium 144 Potassium 3.6 Chloride 111 H Carbon Dioxide 24.0 Anion Gap 9 BUN 17 Creatinine 0.34 L Estim Creat Clear Calc 26.99 Est GFR (MDRD) Af Amer 238 Est GFR (MDRD) Non-Af 196 BUN/Creatinine Ratio 50.0 H Glucose 73 L Calcium 8.1 L Medical Necessity - Tobacco Use Smoking Status: Never smoker Tobacco Use: Non-smoker Assessment/Plan All Active Problems Intractable back pain (Acute) Sacral fracture, closed (Acute) Bilateral hip pain (Acute) Fall (Acute) New onset atrial fibrillation (Acute) 1. Acute on chronic intractable back pain due to new and old compression fractures, non-traumatic with associated debility Dr. Dowling consulted. PRN pain regimen. PT/OT. Case management involved. Plan for SNF versus home health. Fall precautions. Recommend initiating calcium/vitamin D supplementation given severe osteopenia and compression fractures. 2. Alzheimer's dementia-continue home Namenda and Aricept. 3. Chronic kidney disease stage III-stable, monitor BMP. 4. Hypertension-stable, home metoprolol regimen on hold due to bradycardia. 5. Hyperlipidemia-not on statin. 6. Osteoarthritis 7. Paroxysmal atrial fibrillation-home metoprolol regimen on hold given bradycardia. Not a candidate for anticoagulation given high risk for falls. Continue aspirin. 8. Moderate to severe protein calorie malnutrition-BMI 17. Nutrition consult. DVT prophylaxis-heparin subcu, SCDs. This patient was seen by FLORESITA Gillespie under the supervision of Dr. Nowak. <Mary Ann Nowak - Last Filed: 02/23/18 13:58> - Physical Exam Vital Signs Temp Pulse Resp BP Pulse Ox 98.2 F 59 L 20 H 140/65 H 98 02/23/18 09:15 02/23/18 09:15 02/23/18 09:15 02/23/18 09:15 02/23/18 09:15 Oxygen Delivery Method Room Air Weight: 84 lb 0.008 oz Body Mass Index (BMI) 17.5 Intake and Output for Last 24 Hours 02/21/18 02/22/18 02/23/18 23:59 23:59 23:59 Intake Total 1990 1474 / 1474 Balance 1990 1474 / 1474 Laboratory Tests Past 24 Hrs 02/23/18 02/23/18 06:02 06:02 WBC 4.9 RBC 3.48 L Hgb 8.8 L Hct 30.1 L MCV 86.5 MCH 25.3 L MCHC 29.2 L RDW 15.5 H RDW Differential 47.6 H Plt Count 206 MPV 10.6 Immature Gran % (Auto) 0.200 Neut % (Auto) 70.3 H Lymph % (Auto) 17.2 L [place] % (Auto) 9.2 Eos % (Auto) 2.5 Baso % (Auto) 0.6 Absolute Neuts (auto) 3.4 Absolute Lymphs (auto) 0.84 Total Counted Not Reportable Sodium 144 Potassium 3.6 Chloride 111 H Carbon Dioxide 24.0 Anion Gap 9 BUN 17 Creatinine 0.34 L Estim Creat Clear Calc 26.99 Est GFR (MDRD) Af Amer 238 Est GFR (MDRD) Non-Af 196 BUN/Creatinine Ratio 50.0 H Glucose 73 L Calcium 8.1 L Assessment/Plan Patient seen by Jeannette King NP-C under my supervision Patient seen and examined. She was admitted for intractable back pain due to compression fractures, likely from a fall, with associated debility. Pain management consulted. Awaiting placement in SNF. Patient seen and examined. She had tried getting out of bed on her own because she wanted to use the bathroom. Patient counselled that she was a very high fall risk and was imperative that she called for help use the bathroom where she needed to get out of bed. Patient denied any fever or chills, cough or chest pain, shortness of breath, abdominal pain, diarrhea or vomiting. She said her back pain was well controlled. Labs and vitals reviewed. o/e: General: Alert, Cooperative, No apparent distress HEENT: Atraumatic, PERRLA, EOMI, Normocephalic Neck: Supple, No JVD, Negative Carotid Bruits Lungs: Clear to auscultation, Normal air movement Cardiovascular: Regular Rhythm, Normal S1, Normal S2, No murmurs, Bradycardic Abdomen: Bowel Sounds Present, Soft, Non Tender, Non-Distended Extremities: No clubbing, No cyanosis, No edema, Capillary Refill Less than 3 Seconds Skin: No rashes, No breakdown Musculoskeletal: No Tenderness to Palpation of Joints or Extremities, very cachectic. Neurological: Cranial nerves II-XII grossly intact, Neuro grossly intact Psych/Mental Status: Normal Affect, Appropriate Pain well controlled currently. Awaiting placement. On vitamin D supplementation 12823PI weekly. Agree with rest of Jeannette King MECHANICAL PROJECT ENGINEER-C's note, assessment and plan. Code Visit Inpatient E&M: 96903 Subs Hosp L2
[2018-02-23] MEDS: Calcium Carbonate 500 MG Tablet PO (18:18)
[2018-02-23] MEDS: Baclofen 10 MG Tablet PO (21:31)
[2018-02-23] MEDS: Donepezil HCl 10 MG Tablet PO (21:32)
[2018-02-24 03:09] VITALS: BP 149/56; PULSE 54; RESP 16; TEMP 36.6; O2SAT 94
[2018-02-24] MEDS: Nystatin Powder 15gm Bottle 1 APPLIC TOPICAL ×2 (05:30→21:08)
[2018-02-24] MEDS: Menthol/Lanolin/Calamine/Znox 113 GM Tube 1 APPLIC TOPICAL ×3 (05:30→21:09)
[2018-02-24 06:13] LABS: Absolute Lymphocyte Count 1.01 X10^3/ul (0.83-4.51); Basophil# 0.03 X10^3/uL; Basophil% 0.5 % (0-1); Eosinophils% 1.7 % (0-5); Hematocrit 32.6 % (37-47); Hemoglobin 9.7 g/dl (12.0-15.0); Lymphocyte # 1.01 X10^3/ul (4.0); Lymphocyte % 17.4 % (19-41); Mean Corp Hgb Conc 29.8 g/gl (32-36); Mean Corpuscular Hgb 25.3 pg (27.0-32.0); Mean Corpuscular Volume 85.1 fL (81-99); Mean Platelet Vol. 10.9 fl (6.2-12.0); Monocyte# 0.65 X10^3/uL; Monocyte% 11.2 % (0-10); Platelet Count 215 K/mm3 (150-450); RBC Distribution Width CV 15.4 % (11.6-14.6); Red Blood Count 3.83 M/mm3 (4.2-5.4); White Blood Count 5.8 K/mm3 (4.4-11.0)
[2018-02-24 06:18] LABS: POSITIVE COUNT NO; POSITIVE DIFFERENTIAL NO; POSITIVE MORPHOLOGY NO
[2018-02-24 06:50] VITALS: O2SAT 97
[2018-02-24 07:27] VITALS: BP 142/66; PULSE 51; RESP 18; TEMP 37.5; O2SAT 96
[2018-02-24] MEDS: Calcium Carbonate 500 MG Tablet PO ×2 (08:58→18:16)
[2018-02-24] MEDS: Pantoprazole Sodium 20 MG Tablet PO ×2 (08:59→21:09)
[2018-02-24] MEDS: Aspirin 81 MG TAB.CHEW PO (08:59)
[2018-02-24] MEDS: Memantine Hydrochloride 10 MG Tablet PO ×2 (08:59→21:09)
[2018-02-24] MEDS: Heparin Injection (Vial) 5,000 UNIT/ML VIAL 5000 UNIT SC ×2 (09:02→21:13)
--- NOTE | 2018-02-24 09:46 | PCM.PROGNOTE ---
<Jeannette King - Last Filed: 02/24/18 09:53> Patient Problems: Active and Suspected Problems Intractable back pain (Acute) Subjective: Patient seen and examined. Ambulating in room with aide and RN. States back pain is improved. Complains of continued generalized weakness. No other current complaints. - Physical Exam General: Alert, Cooperative, No apparent distress HEENT: Atraumatic, PERRLA, EOMI, Normocephalic Neck: Supple, No JVD, Negative Carotid Bruits Lungs: Clear to auscultation, Normal air movement Cardiovascular: Regular Rhythm, Normal S1, Normal S2, No murmurs, Bradycardic Abdomen: Bowel Sounds Present, Soft, Non Tender, Non-Distended Extremities: No clubbing, No cyanosis, No edema, Capillary Refill Less than 3 Seconds Skin: No rashes, No breakdown Musculoskeletal: No Tenderness to Palpation of Joints or Extremities Neurological: Cranial nerves II-XII grossly intact, Neuro grossly intact Psych/Mental Status: Normal Affect, Appropriate Vital Signs Temp Pulse Resp BP Pulse Ox 99.5 F H 51 L 18 142/66 H 96 02/24/18 07:27 02/24/18 07:27 02/24/18 07:27 02/24/18 07:27 02/24/18 07:27 Oxygen Delivery Method Nasal Cannula Weight: 84 lb 0.008 oz Body Mass Index (BMI) 17.5 Intake and Output for Last 24 Hours 02/22/18 02/23/18 02/24/18 23:59 23:59 23:59 Intake Total 1990 2546 / 2546 500 / 500 Output Total 300 / 300 300 / 300 Balance 1990 2246 / 2246 200 / 200 Laboratory Tests Past 24 Hrs 02/24/18 05:40 WBC 5.8 RBC 3.83 L Hgb 9.7 L Hct 32.6 L MCV 85.1 MCH 25.3 L MCHC 29.8 L RDW 15.4 H RDW Differential 47.0 H Plt Count 215 MPV 10.9 Immature Gran % (Auto) 0.200 Neut % (Auto) 69.0 Lymph % (Auto) 17.4 L [place] % (Auto) 11.2 H Eos % (Auto) 1.7 Baso % (Auto) 0.5 Absolute Neuts (auto) 4.0 Absolute Lymphs (auto) 1.01 Total Counted Not Reportable Medical Necessity - Tobacco Use Smoking Status: Never smoker Tobacco Use: Non-smoker Assessment/Plan All Active Problems Intractable back pain (Acute) Sacral fracture, closed (Acute) Bilateral hip pain (Acute) Fall (Acute) New onset atrial fibrillation (Acute) 1. Acute on chronic intractable back pain due to new and old compression fractures, non-traumatic with associated debility Dr. Dowling consulted. PRN pain regimen. PT/OT. Case management involved. Plan for SNF versus home health. Fall precautions. Recommend initiating calcium/vitamin D supplementation given severe osteopenia and compression fractures. 2. Alzheimer's dementia-continue home Namenda and Aricept. 3. Chronic kidney disease stage III-stable, monitor BMP. 4. Hypertension-stable, home metoprolol regimen on hold due to bradycardia. 5. Hyperlipidemia-not on statin. 6. Osteoarthritis 7. Paroxysmal atrial fibrillation-home metoprolol regimen on hold given bradycardia. Not a candidate for anticoagulation given high risk for falls. Continue aspirin. 8. Moderate to severe protein calorie malnutrition-BMI 17. Nutrition consult. DVT prophylaxis-heparin subcu, SCDs. Discharge planning- Stable for discharge pending pre-cert SNF. This patient was seen by FLORESITA Gillespie under the supervision of Dr. Adame. <Ernesto Adame - Last Filed: 02/24/18 10:14> Subjective: Denies any pain in her back at this time. Denies bowel or bladder incontinence. - Physical Exam General: Alert, No apparent distress HEENT: Atraumatic, Normocephalic Oral: Moist Mucosa, No Gingival or Mucosal Lesions/ Ulcerations Neck: No Nuchal Rigidity, Thyroid Normal Size and Texture Lungs: Clear to auscultation, Normal air movement, No rhonchi, No wheeze Cardiovascular: Regular Rhythm, Normal S1, Normal S2, No murmurs Abdomen: Bowel Sounds Present, Soft, Non Tender, Non-Distended, No Hepato-splenomegaly Extremities: No clubbing, No edema, No Calf Tenderness Vital Signs Temp Pulse Resp BP Pulse Ox 37.5 C H 51 L 18 142/66 H 96 02/24/18 07:27 02/24/18 07:27 02/24/18 07:27 02/24/18 07:27 02/24/18 07:27 Oxygen Delivery Method Nasal Cannula Weight: 38.102 kg Body Mass Index (BMI) 17.5 Intake and Output for Last 24 Hours 02/22/18 02/23/18 02/24/18 23:59 23:59 23:59 Intake Total 1990 2546 / 2546 500 / 500 Output Total 300 / 300 300 / 300 Balance 1990 2246 / 2246 200 / 200 Laboratory Tests Past 24 Hrs 02/24/18 05:40 WBC 5.8 RBC 3.83 L Hgb 9.7 L Hct 32.6 L MCV 85.1 MCH 25.3 L MCHC 29.8 L RDW 15.4 H RDW Differential 47.0 H Plt Count 215 MPV 10.9 Immature Gran % (Auto) 0.200 Neut % (Auto) 69.0 Lymph % (Auto) 17.4 L [place] % (Auto) 11.2 H Eos % (Auto) 1.7 Baso % (Auto) 0.5 Absolute Neuts (auto) 4.0 Absolute Lymphs (auto) 1.01 Total Counted Not Reportable Assessment/Plan Patient seen and examined independently. Data reviewed. I agree with the above note by the nurse practitioner. 1. L1 and L2 compression fractures Due to osteoporosis Seems to be doing well at this time Pain management has been consulted for further input Patient started on ergocalciferol Previous 25 hydroxy vitamin D level from November of this year was 29. Goal level is 450 Additionally, patient does have old compression fractures as well. 2. Debility [facility] 3. DVT prophylaxis with heparin Code Visit Inpatient E&M: 59439 Subs Hosp L2
--- NOTE | 2018-02-24 09:51 | PN_ITS ---
<Jeannette King - Last Filed: 02/24/18 09:53> Patient Problems: Active and Suspected Problems Intractable back pain (Acute) Subjective: Patient seen and examined. Ambulating in room with aide and RN. States back pain is improved. Complains of continued generalized weakness. No other current complaints. - Physical Exam General: Alert, Cooperative, No apparent distress HEENT: Atraumatic, PERRLA, EOMI, Normocephalic Neck: Supple, No JVD, Negative Carotid Bruits Lungs: Clear to auscultation, Normal air movement Cardiovascular: Regular Rhythm, Normal S1, Normal S2, No murmurs, Bradycardic Abdomen: Bowel Sounds Present, Soft, Non Tender, Non-Distended Extremities: No clubbing, No cyanosis, No edema, Capillary Refill Less than 3 Seconds Skin: No rashes, No breakdown Musculoskeletal: No Tenderness to Palpation of Joints or Extremities Neurological: Cranial nerves II-XII grossly intact, Neuro grossly intact Psych/Mental Status: Normal Affect, Appropriate Vital Signs Temp Pulse Resp BP Pulse Ox 99.5 F H 51 L 18 142/66 H 96 02/24/18 07:27 02/24/18 07:27 02/24/18 07:27 02/24/18 07:27 02/24/18 07:27 Oxygen Delivery Method Nasal Cannula Weight: 84 lb 0.008 oz Body Mass Index (BMI) 17.5 Intake and Output for Last 24 Hours 02/22/18 02/23/18 02/24/18 23:59 23:59 23:59 Intake Total 1990 2546 / 2546 500 / 500 Output Total 300 / 300 300 / 300 Balance 1990 2246 / 2246 200 / 200 Laboratory Tests Past 24 Hrs 02/24/18 05:40 WBC 5.8 RBC 3.83 L Hgb 9.7 L Hct 32.6 L MCV 85.1 MCH 25.3 L MCHC 29.8 L RDW 15.4 H RDW Differential 47.0 H Plt Count 215 MPV 10.9 Immature Gran % (Auto) 0.200 Neut % (Auto) 69.0 Lymph % (Auto) 17.4 L [place] % (Auto) 11.2 H Eos % (Auto) 1.7 Baso % (Auto) 0.5 Absolute Neuts (auto) 4.0 Absolute Lymphs (auto) 1.01 Total Counted Not Reportable Medical Necessity - Tobacco Use Smoking Status: Never smoker Tobacco Use: Non-smoker Assessment/Plan All Active Problems Intractable back pain (Acute) Sacral fracture, closed (Acute) Bilateral hip pain (Acute) Fall (Acute) New onset atrial fibrillation (Acute) 1. Acute on chronic intractable back pain due to new and old compression fractures, non-traumatic with associated debility Dr. Dowling consulted. PRN pain regimen. PT/OT. Case management involved. Plan for SNF versus home health. Fall precautions. Recommend initiating calcium/vitamin D supplementation given severe osteopenia and compression fractures. 2. Alzheimer's dementia-continue home Namenda and Aricept. 3. Chronic kidney disease stage III-stable, monitor BMP. 4. Hypertension-stable, home metoprolol regimen on hold due to bradycardia. 5. Hyperlipidemia-not on statin. 6. Osteoarthritis 7. Paroxysmal atrial fibrillation-home metoprolol regimen on hold given bradycardia. Not a candidate for anticoagulation given high risk for falls. Continue aspirin. 8. Moderate to severe protein calorie malnutrition-BMI 17. Nutrition consult. DVT prophylaxis-heparin subcu, SCDs. Discharge planning- Stable for discharge pending pre-cert SNF. This patient was seen by FLORESITA Gillespie under the supervision of Dr. Adame. <Ernesto Adame - Last Filed: 02/24/18 10:14> Subjective: Denies any pain in her back at this time. Denies bowel or bladder incontinence. - Physical Exam General: Alert, No apparent distress HEENT: Atraumatic, Normocephalic Oral: Moist Mucosa, No Gingival or Mucosal Lesions/ Ulcerations Neck: No Nuchal Rigidity, Thyroid Normal Size and Texture Lungs: Clear to auscultation, Normal air movement, No rhonchi, No wheeze Cardiovascular: Regular Rhythm, Normal S1, Normal S2, No murmurs Abdomen: Bowel Sounds Present, Soft, Non Tender, Non-Distended, No Hepato- splenomegaly Extremities: No clubbing, No edema, No Calf Tenderness Vital Signs Temp Pulse Resp BP Pulse Ox 37.5 C H 51 L 18 142/66 H 96 02/24/18 07:27 02/24/18 07:27 02/24/18 07:27 02/24/18 07:27 02/24/18 07:27 Oxygen Delivery Method Nasal Cannula Weight: 38.102 kg Body Mass Index (BMI) 17.5 Intake and Output for Last 24 Hours 02/22/18 02/23/18 02/24/18 23:59 23:59 23:59 Intake Total 1990 2546 / 2546 500 / 500 Output Total 300 / 300 300 / 300 Balance 1990 2246 / 2246 200 / 200 Laboratory Tests Past 24 Hrs 02/24/18 05:40 WBC 5.8 RBC 3.83 L Hgb 9.7 L Hct 32.6 L MCV 85.1 MCH 25.3 L MCHC 29.8 L RDW 15.4 H RDW Differential 47.0 H Plt Count 215 MPV 10.9 Immature Gran % (Auto) 0.200 Neut % (Auto) 69.0 Lymph % (Auto) 17.4 L [place] % (Auto) 11.2 H Eos % (Auto) 1.7 Baso % (Auto) 0.5 Absolute Neuts (auto) 4.0 Absolute Lymphs (auto) 1.01 Total Counted Not Reportable Assessment/Plan Patient seen and examined independently. Data reviewed. I agree with the above note by the nurse practitioner. 1. L1 and L2 compression fractures * Due to osteoporosis * Seems to be doing well at this time * Pain management has been consulted for further input * Patient started on ergocalciferol * Previous 25 hydroxy vitamin D level from November of this year was 29. Goal level is 450 * Additionally, patient does have old compression fractures as well. 2. Debility * Awaiting [facility]ertification for [facility] facility 3. DVT prophylaxis with heparin Code Visit Inpatient E&M: 25495 Subs Hosp L2
[2018-02-24 12:30] VITALS: BP 139/60; PULSE 50; RESP 18; TEMP 37.4; O2SAT 95
[2018-02-24 18:14] VITALS: BP 145/72; PULSE 59; RESP 18; TEMP 37.4; O2SAT 96
[2018-02-24 20:45] VITALS: BP 156/65; PULSE 57; RESP 16; TEMP 36.9; O2SAT 95
[2018-02-24] MEDS: 0.9% NaCl Peripheral Flush Adult/Peds IV ×2 (21:09→21:17)
[2018-02-24] MEDS: Donepezil HCl 10 MG Tablet PO (21:09)
[2018-02-24] MEDS: Baclofen 10 MG Tablet PO (21:09)
[2018-02-25 05:08] VITALS: BP 87/61; PULSE 87; RESP 16; TEMP 36.4; O2SAT 93
[2018-02-25] MEDS: Menthol/Lanolin/Calamine/Znox 113 GM Tube 1 APPLIC TOPICAL ×3 (05:13→22:02)
[2018-02-25 07:02] VITALS: BP 89/61; PULSE 80; RESP 16; TEMP 36.7; O2SAT 94
[2018-02-25] MEDS: HYDROcodone Bitartrate/Apap 5/325 Tablet PO (07:08)
[2018-02-25 07:42] VITALS: BP 82/42; PULSE 97; RESP 16; TEMP 37; O2SAT 94
[2018-02-25] MEDS: Calcium Carbonate 500 MG Tablet PO ×2 (07:47→16:04)
[2018-02-25] MEDS: Aspirin 81 MG TAB.CHEW PO (07:47)
[2018-02-25] MEDS: Memantine Hydrochloride 10 MG Tablet PO ×2 (07:47→22:01)
[2018-02-25] MEDS: Pantoprazole Sodium 20 MG Tablet PO ×2 (07:47→22:01)
[2018-02-25] MEDS: Heparin Injection (Vial) 5,000 UNIT/ML VIAL 5000 UNIT SC ×2 (07:50→22:01)
[2018-02-25 08:56] VITALS: BP 91/59; PULSE 84; RESP 16; TEMP 37; O2SAT 92
--- NOTE | 2018-02-25 08:57 | NURSING ---
went in to check pt BP per Jeannette Patel. see VS. bp was better than previous. pt states feels sweaty, offered a cool washcloth pt denies need for this. check temp in room states 74 decreased temp in room to 70. will inform Maki CHANG.. text sent to Jeannette with updated BP
--- NOTE | 2018-02-25 13:19 | CASEMGMT ---
Social Work Note SW in to speak with pt to confirm discharge plans. Per previous notes pt has dementia and is able to answer some questions. Pt states that she wishes to discharge home and that she has a and son who is able and willing to help. Pt gave this worker permission to call her . SW attempted to call pt's but got no answer and phone kept ringing. SW asked pt if she knew 's number or if she had a different number and pt is unable to recall 's number. PT also unable to provided son's number. SW will continue to make attempts to call pt's and will inform pt's nurse that if arrives to let this worker know so this worker is able to talk to him. Plan: TBD It should be noted that PT is recommending pt go home with home health Rafia Perez MSW, MACHINING SUPERVISOR
--- NOTE | 2018-02-25 13:41 | PCM.PROGNOTE ---
<Jeannette King - Last Filed: 02/25/18 13:45> Patient Problems: Active and Suspected Problems Intractable back pain (Acute) Subjective: Patient seen and examined. Resting comfortably in bed. Denies significant back pain at this time. Patient's states she wants to go home but would prefer we check with her first. Patient with intermittent confusion. Attempts by social work to contact have been unsuccessful. - Physical Exam General: Alert, Cooperative, No apparent distress HEENT: Atraumatic, PERRLA, EOMI, Normocephalic Neck: Supple, No JVD, Negative Carotid Bruits Lungs: Clear to auscultation, Normal air movement Cardiovascular: Regular rate, Regular Rhythm, Normal S1, Normal S2, No murmurs Abdomen: Bowel Sounds Present, Soft, Non Tender, Non-Distended Extremities: No edema, Capillary Refill Less than 3 Seconds Skin: No rashes, No breakdown Musculoskeletal: No Tenderness to Palpation of Joints or Extremities, Cachexia, Muscle Wasting Neurological: Cranial nerves II-XII grossly intact, Neuro grossly intact Psych/Mental Status: Normal Affect, Appropriate Vital Signs Temp Pulse Resp BP Pulse Ox 98.6 F 84 16 91/59 L 92 02/25/18 08:56 02/25/18 08:56 02/25/18 08:56 02/25/18 08:56 02/25/18 08:56 Oxygen Delivery Method Room Air Weight: 84 lb 0.008 oz Body Mass Index (BMI) 17.5 Intake and Output for Last 24 Hours 02/23/18 02/24/18 02/25/18 23:59 23:59 23:59 Intake Total 2546 / 2546 1060 / 1060 962 / 962 Output Total 300 / 300 800 / 800 700 / 700 Balance 2246 / 2246 260 / 260 262 / 262 Microbiology Past 72 Hours 02/24/18 17:20 Stool Occult Blood (DILCIA) - Final Stool Medical Necessity - Tobacco Use Smoking Status: Never smoker Tobacco Use: Non-smoker Assessment/Plan All Active Problems Intractable back pain (Acute) Sacral fracture, closed (Acute) Bilateral hip pain (Acute) Fall (Acute) New onset atrial fibrillation (Acute) 1. Acute on chronic intractable back pain due to new and old compression fractures, non-traumatic with associated debility Dr. Dowling consulted. PRN pain regimen. PT/OT. Case management involved. Plan for SNF versus home health. Fall precautions. Continue calcium/vitamin D supplementation given severe osteopenia and compression fractures. 2. Alzheimer's dementia-continue home Namenda and Aricept. 3. Chronic kidney disease stage III-stable, monitor BMP. 4. Hypertension-stable, home metoprolol regimen on hold due to bradycardia. 5. Hyperlipidemia-not on statin. 6. Osteoarthritis 7. Paroxysmal atrial fibrillation-home metoprolol regimen on hold given bradycardia. Not a candidate for anticoagulation given high risk for falls. Continue aspirin. 8. Moderate to severe protein calorie malnutrition-BMI 17. Nutrition consult. DVT prophylaxis-heparin subcu, SCDs. Discharge planning-pending decision by patient /family regarding home with home health versus SNF. This patient was seen by FLORESITA Gillespie under the supervision of Dr. Adame. <Ernesto Adame - Last Filed: 02/25/18 15:17> - Physical Exam General: Alert, Cooperative HEENT: Atraumatic, Normocephalic Lungs: Clear to auscultation, Normal air movement Cardiovascular: Regular rate, Regular Rhythm, Normal S1, Normal S2, No murmurs Extremities: No edema, No Calf Tenderness Skin: No rashes, No breakdown Psych/Mental Status: Normal Affect, Appropriate Vital Signs Temp Pulse Resp BP Pulse Ox 36.7 C 64 18 107/53 L 95 02/25/18 14:15 02/25/18 14:15 02/25/18 14:15 02/25/18 14:15 02/25/18 14:15 Oxygen Delivery Method Room Air Weight: 38.102 kg Body Mass Index (BMI) 17.5 Intake and Output for Last 24 Hours 02/23/18 02/24/18 02/25/18 23:59 23:59 23:59 Intake Total 2546 / 2546 1060 / 1060 962 / 962 Output Total 300 / 300 800 / 800 700 / 700 Balance 2246 / 2246 260 / 260 262 / 262 Microbiology Past 72 Hours 02/24/18 17:20 Stool Occult Blood (DILCIA) - Final Stool Assessment/Plan Patient seen and examined independently. Data reviewed. I agree with the above note by the nurse practitioner. 1. L1 and L2 compression fractures Due to osteoporosis Seems to be doing well at this time Pain management has been consulted for further input Patient started on ergocalciferol Previous 25 hydroxy vitamin D level from November of this year was 29. Goal level is 50 Additionally, patient does have old compression fractures as well. 2. Debility Awaiting a precertification for [facility] facility 3. DVT prophylaxis with heparin Difficulty getting hold of family so patient cannot be transition over to a [facility] facility yet. Code Visit Inpatient E&M: 51673 Subs Hosp L2
--- NOTE | 2018-02-25 14:05 | CASEMGMT ---
Social Work Note SW attempted to call pt's again with no answer. SW in to speak with pt. Pt adamantly states that she wishes to discharge home with her . Pt states that she uses a walker to get around home and her is able to help her. SW states that this worker and doctor would like to speak with pt's before discharge to confirm that her is able to take care of her. Plan: QUANG Perez PRINCIPAL GIFTS OFFICER, SNORKELLING INSTRUCTOR
[2018-02-25 14:15] VITALS: BP 107/53; PULSE 64; RESP 18; TEMP 36.7; O2SAT 95
--- NOTE | 2018-02-25 17:06 | CASEMGMT ---
Social Work Note Per previous notes from when pt was in TCU, pt has a daughter named Jaci and Jaci's number is [phone]. SW in to speak with pt. SW informed pt that this worker has still been unable to reach pt's . Pt gave this worker permission to call her daughter Jaci. SW attempted to call pt's daughter Jaci three times with no answer and no way to leave voicemail. It should be noted that this worker has tried multiple times today to reach pt's José Luis and pt's daughter Jaci. Pt states that she has a son as well but doesn't know number and no cell phone is present in pt's room. TEE updated BERNARDO Gambino that if pt's family arrive to [facility] later this evening to get numbers for family members and to ask pt's family if they want pt to return home or if they would pt to be placed at SNF. BERNARDO Gambino states understanding. Plan: TBD Rafia Perez MOLDER APPRENTICE, STOPPER GRINDER
--- NOTE | 2018-02-25 19:23 | NURSING ---
Met José Luis at bedside during shift change. Spoke to if he feels comfortable taking pt home at discharge or if he would be more comfortable having her go to a SNF. He states he is comfortable taking home. Asked José Luis if he will be home during the day with pt which he responded no, she is usually home all day by herself. Ask for a number to call for social work to contact. José Luis gave [phone] which is a [employer] where he can be reached.
[2018-02-25 22:00] VITALS: BP 119/59; PULSE 65; RESP 16; TEMP 37.1; O2SAT 95
[2018-02-25] MEDS: Donepezil HCl 10 MG Tablet PO (22:01)
[2018-02-25] MEDS: Baclofen 10 MG Tablet PO (22:01)
[2018-02-25] MEDS: 0.9% NaCl Peripheral Flush Adult/Peds IV (22:04)
[2018-02-25 22:34] VITALS: BMI 17.6
[2018-02-26] VITALS (10 sets, daily range): BP systolic 95–152; BP diastolic 48–121; PULSE 60–111; RESP 16–20; TEMP 36.3–36.9; O2SAT 95–98; BMI 17.6
--- NOTE | 2018-02-26 00:22 | NURSING ---
Pre-anesthetic evaluation done, no new orders needed.
[2018-02-26] MEDS: Menthol/Lanolin/Calamine/Znox 113 GM Tube 1 APPLIC TOPICAL ×3 (06:27→22:35)
[2018-02-26] MEDS: Memantine Hydrochloride 10 MG Tablet PO ×2 (09:24→22:38)
[2018-02-26] MEDS: Aspirin 81 MG TAB.CHEW PO (09:24)
[2018-02-26] MEDS: Pantoprazole Sodium 20 MG Tablet PO ×2 (09:24→22:38)
--- NOTE | 2018-02-26 10:14 | PCM.PN.HOSP ---
Patient Problems: Active and Suspected Problems Intractable back pain (Acute) Subjective: No back pain at rest. No paresthesias. Vitals/I&O's: Vital Signs Temp Pulse Resp BP Pulse Ox 36.9 C 67 18 123/72 H 96 02/26/18 09:09 02/26/18 09:09 02/26/18 09:09 02/26/18 09:09 02/26/18 09:09 Oxygen Delivery Method Room Air Weight: 38.1 kg Body Mass Index (BMI) 17.6 Intake and Output for Last 24 Hours 02/24/18 02/25/18 02/26/18 23:59 23:59 23:59 Intake Total 1060 / 1060 1202 / 1202 210 / 210 Output Total 800 / 800 700 / 700 200 / 200 Balance 260 / 260 502 / 502 10 / 10 General: Alert, No apparent distress HEENT: Atraumatic, Normocephalic Oral: Moist Mucosa, No Gingival or Mucosal Lesions/ Ulcerations Neck: No Nodes, Thyroid Normal Size and Texture Lungs: Clear to auscultation, Normal air movement, No rhonchi, No wheeze Cardiovascular: Regular rate, Regular Rhythm, Normal S1, Normal S2, No murmurs Abdomen: Bowel Sounds Present, Soft, Non Tender, Non-Distended, No Hepato-splenomegaly, Passing Flatus Extremities: No edema, No Calf Tenderness Skin: No rashes, No breakdown Psych/Mental Status: Appropriate, Flat Affect Microbiology Past 72 Hours 02/24/18 17:20 Stool Stool Occult Blood (DILCIA) - Final Current Medications Acetaminophen (Tylenol) 650 mg PO Q6H PRN PRN PRN Reason: Non-cardiac pain (mod-severe) Hydrocodone Bitart/Acetaminophen ([place] 5mg-325mg) 1 - 2 tablet PO Q6H PRN PRN PRN Reason: Moderate-severe pain Last Admin: 02/25/18 07:08 Dose: 1 tablet Al Hydroxide/Mg Hydroxide (Mylanta Ii) 30 ml PO Q6H PRN PRN PRN Reason: Gastric burning Aspirin (Aspirin, Baby) 81 mg PO DAILY@0800 [facility] Last Admin: 02/26/18 09:24 Dose: 81 mg Baclofen (Lioresal) 10 mg PO QHS [facility] Last Admin: 02/25/18 22:01 Dose: 10 mg Calamine/Phenol (Calmoseptine Ointment) 1 applic TOPICAL TID [facility] PRN Reason: Protocol Last Admin: 02/26/18 06:27 Dose: 1 applicatio [facility] Last Admin: 02/26/18 09:23 Dose: Not Given Cyclobenzaprine HCl (Flexeril) 5 mg PO TID PRN PRN PRN Reason: strain, spasm Donepezil HCl (Aricept) 10 mg PO QHS [facility] Last Admin: 02/25/18 22:01 Dose: 10 mg Ergocalciferol (Vitamin D) 50,000 unit PO Sa@1000 [facility] Heparin Sodium (Porcine) (Heparin Na) 5,000 unit SC Q12 [facility] Last Admin: 02/26/18 06:03 Dose: Not Given Magnesium Hydroxide (Milk Of Magnesia) 30 ml PO DAILY PRN PRN PRN Reason: Constipation Memantine (Namenda) 10 mg PO BID [facility] Last Admin: 02/26/18 09:24 Dose: 10 mg Morphine Sulfate () 1 - 2 mg IV Q4H PRN PRN PRN Reason: PAIN Nutritional Formula (Lactose Free) (Ensure Enlive) 120 ml PO 4X/DAY [facility] Last Admin: 02/26/18 09:22 Dose: Not Given Nystatin (Mycostatin Powder) 1 applic TOPICAL [facility] PRN Reason: Protocol Last Admin: 02/26/18 06:03 Dose: Not Given Ondansetron HCl (Zofran) 4 mg IV Q8H PRN PRN PRN Reason: NAUSEA Pantoprazole Sodium (Protonix) 20 mg PO BID [facility] Last Admin: 02/26/18 09:24 Dose: 20 mg Potassium Chloride (K-Dur) 20 meq PO DAILY [facility] Last Admin: 02/26/18 09:24 Dose: 20 meq Promethazine HCl (Phenergan) 12.5 mg IV Q6H PRN PRN PRN Reason: NAUSEA/VOMITING Sodium Chloride () 5 - 30 ml IV UD PRN PRN Reason: SALINE FLUSH Last Admin: 02/25/18 22:04 Dose: 10 ml Medical Necessity - Tobacco Use Smoking Status: Never smoker Tobacco Use: Non-smoker Assessment/Plan All Active Problems Intractable back pain (Acute) Sacral fracture, closed (Acute) Bilateral hip pain (Acute) Fall (Acute) New onset atrial fibrillation (Acute) 1. L1 and L2 compression fractures Due to osteoporosis Seems to be doing well at this time Kyphoplasty today Patient started on ergocalciferol Previous 25 hydroxy vitamin D level from November of this year was 29. Goal level is 50 Additionally, patient does have old compression fractures as well. 2. Debility CM met with yesterday, and the plan is for the patient to go home, rather than SNF, upon discharge. 3. DVT prophylaxis with heparin Code Visit Inpatient E&M: 65480 Subs Hosp L2
--- NOTE | 2018-02-26 10:20 | CASEMGMT ---
BERNARDO CORTÉS called and spoke with regarding discharge plans. wishes for patient to discharge home. is agreeable to HHC with [facility], who patient has had in the past. also states that Kenneth and students come to help with pill setup. Referral sent to [facility]. Called placed to Rad at [facility] to confirm services. BERNARDO CORTÉS will continue to follow this patient and plan for a safe discharge.
[2018-02-26] MEDS: Bupivacaine Mpf 0.5% 30 ML VIAL (15:48)
[2018-02-26] MEDS: Morphine 2 MG/ML Syringe IV (17:57)
[2018-02-26] MEDS: 0.9% NaCl Peripheral Flush Adult/Peds IV (17:59)
[2018-02-26] MEDS: HYDROcodone Bitartrate/Apap 5/325 Tablet PO (19:15)
[2018-02-26] MEDS: Baclofen 10 MG Tablet PO (22:38)
[2018-02-26] MEDS: Donepezil HCl 10 MG Tablet PO (22:38)
[2018-02-27 04:35] VITALS: BP 105/51; PULSE 58; RESP 18; TEMP 36.8; O2SAT 96
[2018-02-27] MEDS: Menthol/Lanolin/Calamine/Znox 113 GM Tube 1 APPLIC TOPICAL (04:59)
[2018-02-27 08:32] VITALS: BP 142/69; PULSE 69; RESP 16; TEMP 37; O2SAT 93
[2018-02-27] MEDS: Aspirin 81 MG TAB.CHEW PO (09:00)
[2018-02-27] MEDS: Calcium Carbonate 500 MG Tablet PO (09:01)
[2018-02-27] MEDS: Heparin Injection (Vial) 5,000 UNIT/ML VIAL 5000 UNIT SC (10:09)
[2018-02-27] MEDS: Memantine Hydrochloride 10 MG Tablet PO (10:10)
[2018-02-27] MEDS: Pantoprazole Sodium 20 MG Tablet PO (10:10)
--- NOTE | 2018-02-27 10:32 | PCM.PN.HOSP ---
Patient Problems: Active and Suspected Problems Intractable back pain (Acute) Subjective: Some pain in her back, other tay no new complaints. Vitals/I&O's: Vital Signs Temp Pulse Resp BP Pulse Ox 37.0 C 69 16 142/69 H 93 02/27/18 08:32 02/27/18 08:32 02/27/18 08:32 02/27/18 08:32 02/27/18 08:32 Oxygen Flow Rate (L/min) 2 Oxygen Delivery Method Room Air Weight: 37.648 kg Body Mass Index (BMI) 17.6 Intake and Output for Last 24 Hours 02/25/18 02/26/18 02/27/18 23:59 23:59 23:59 Intake Total 1202 / 1202 2730 / 2730 290 / 290 Output Total 700 / 700 700 / 700 600 / 600 Balance 502 / 502 2029 / 2029 -310 / -310 General: Alert, No apparent distress HEENT: Atraumatic, Normocephalic Oral: Moist Mucosa, No Gingival or Mucosal Lesions/ Ulcerations Neck: No Nodes, Thyroid Normal Size and Texture Lungs: Clear to auscultation, Normal air movement, No rhonchi, No wheeze Cardiovascular: Regular rate, Regular Rhythm, Normal S1, Normal S2, No murmurs Abdomen: Bowel Sounds Present, Soft, Non Tender, Non-Distended, No Hepato-splenomegaly Extremities: No edema, No Calf Tenderness Psych/Mental Status: Normal Affect, Appropriate Microbiology Past 72 Hours 02/24/18 17:20 Stool Stool Occult Blood (DILCIA) - Final Current Medications Acetaminophen (Tylenol) 650 mg PO Q6H PRN PRN PRN Reason: Non-cardiac pain (mod-severe) Hydrocodone Bitart/Acetaminophen ([place] 5mg-325mg) 1 - 2 tablet PO Q6H PRN PRN PRN Reason: Moderate-severe pain Last Admin: 02/26/18 19:15 Dose: 2 tablet Al Hydroxide/Mg Hydroxide (Mylanta Ii) 30 ml PO Q6H PRN PRN PRN Reason: Gastric burning Aspirin (Aspirin, Baby) 81 mg PO DAILY@0800 [facility] Last Admin: 02/27/18 09:00 Dose: 81 mg Baclofen (Lioresal) 10 mg PO QHS [facility] Last Admin: 02/26/18 22:38 Dose: 10 mg Calamine/Phenol (Calmoseptine Ointment) 1 applic TOPICAL TID [facility] PRN Reason: Protocol Last Admin: 02/27/18 04:59 Dose: 1 applicatio [facility] Last Admin: 02/27/18 09:01 Dose: 500 mg Cyclobenzaprine HCl (Flexeril) 5 mg PO TID PRN PRN PRN Reason: strain, spasm Last Admin: 02/26/18 20:21 Dose: 5 mg Donepezil HCl (Aricept) 10 mg PO QHS [facility] Last Admin: 02/26/18 22:38 Dose: 10 mg Ergocalciferol (Vitamin D) 50,000 unit PO Sa@1000 [facility] Heparin Sodium (Porcine) (Heparin Na) 5,000 unit SC Q12 [facility] Last Admin: 02/27/18 10:09 Dose: 5,000 unit Magnesium Hydroxide (Milk Of Magnesia) 30 ml PO DAILY PRN PRN PRN Reason: Constipation Memantine (Namenda) 10 mg PO BID [facility] Last Admin: 02/27/18 10:10 Dose: 10 mg Morphine Sulfate () 1 - 2 mg IV Q4H PRN PRN PRN Reason: PAIN Last Admin: 02/26/18 17:57 Dose: 2 mg Nutritional Formula (Lactose Free) (Ensure Enlive) 120 ml PO 4X/DAY [facility] Last Admin: 02/27/18 10:13 Dose: 120 ml Nystatin (Mycostatin Powder) 1 applic TOPICAL [facility] PRN Reason: Protocol Last Admin: 02/27/18 05:00 Dose: Not Given Ondansetron HCl (Zofran) 4 mg IV Q8H PRN PRN PRN Reason: NAUSEA Pantoprazole Sodium (Protonix) 20 mg PO BID [facility] Last Admin: 02/27/18 10:10 Dose: 20 mg Potassium Chloride (K-Dur) 20 meq PO DAILY [facility] Last Admin: 02/27/18 10:10 Dose: 20 meq Promethazine HCl (Phenergan) 12.5 mg IV Q6H PRN PRN PRN Reason: NAUSEA/VOMITING Sodium Chloride () 5 - 30 ml IV UD PRN PRN Reason: SALINE FLUSH Last Admin: 02/26/18 17:59 Dose: 10 ml Medical Necessity - Tobacco Use Smoking Status: Never smoker Tobacco Use: Non-smoker Assessment/Plan All Active Problems Intractable back pain (Acute) Sacral fracture, closed (Acute) Bilateral hip pain (Acute) Fall (Acute) New onset atrial fibrillation (Acute) 1. L1 and L2 compression fractures Due to osteoporosis Seems to be doing well at this time status post Kyphoplasty on oda Patient started on ergocalciferol Previous 25 hydroxy vitamin D level from November of this year was 29. Goal level is 50 Additionally, patient does have old compression fractures as well. follow up with pain mgmt as outpt 2. Debility CM met with and the plan is for the patient to go home, rather than SNF, upon discharge. 3. DVT prophylaxis with heparin DC to home with [facility] today
--- NOTE | 2018-02-27 10:44 | PCM.DC ---
- Discharge Diagnoses Current Active Problems: Current Active and Chronic Problems Intractable back pain (Acute) PAF (paroxysmal atrial fibrillation) (Chronic) You will use the following diet at home:: No restrictions Your food should be the consistency of: Regular Discharge Activity: Return to Normal Activity, May not drive while taking narcotic pain medications. Call your doctor if your incision/area has: Continuous Slow Oozing, Sudden Increased Bleeding, Increased Pain/ Swelling, Increased Redness Call your doctor if you observe: Fever of 101 or Higher, - - worsening back pain. Allergies/Adverse Reactions: Allergies latex Allergy (Verified 02/21/18 21:06) Swelling Medications to take at Discharge Baclofen [Lioresal] 10 mg PO QHS 02/04/17 Donepezil HCl [Aricept] 10 mg PO QHS 02/04/17 Memantine Hydrochloride [Namenda] 10 mg PO BID 02/04/17 Potassium Chloride [Klor-Con M20] 20 meq PO DAILY 02/04/17 Aspirin [Aspirin, Baby] 81 mg PO DAILY@0800 #1 tab.chew 02/12/17 Acetaminophen [Tylenol] 1,000 mg PO Q8H PRN PRN tablet 03/08/17 Menthol/Lanolin/Calamine/Znox [Calmoseptine Ointment] 1 applic TOPICAL TID #1 tube 03/08/17 Metoprolol Tartrate [Lopressor (beta gabriel)] 12.5 mg PO BID #30 tablet 03/08/17 Nystatin Powder [Mycostatin Powder] 1 applic TOPICAL #1 bottle 03/08/17 Vitamin D2 50,000 unit PO QWEEK 02/21/18 Cyclobenzaprine [Flexeril] 5 mg PO TID PRN PRN #15 tab 02/27/18 Hydrocodone Bitart/Apap 5-325 [[place] 5/325] 1 tablet PO Q6H PRN PRN 3 Days #12 tablet 02/27/18 The following prescriptions were given: Hydrocodone Bitart/Apap 5-325 [[place] 5/325] 1 tablet PO Q6H PRN PRN 3 Days #12 tablet PRN Reason: Moderate-severe pain Cyclobenzaprine [Flexeril] 5 mg PO TID PRN PRN #15 tab PRN Reason: strain, spasm Primary Care Physician: Burak Sampson Chi, MD [Primary Care Provider] - Within 2 Weeks Test Results: Test results from this visit will be discussed in further detail at your follow-up appointment, if applicable. Please Follow Up With: Gladys Dowling MD When: 2-3 weeks Proposed Discharge Date: 02/27/18
--- NOTE | 2018-02-27 10:46 | PCM.DC.SUM ---
Discharge Date and Diagnosis - Problem List Patient Problems: Active and Suspected Problems Intractable back pain (Acute) Date of Admission: 02/21/18 Date of Discharge: 02/27/18 - Primary Discharge Diagnosis Active and Suspected Problems Intractable back pain (Acute) - Secondary Discharge Diagnosis Chronic Problems PAF (paroxysmal atrial fibrillation) (Chronic) Lumbar compression fracture (Chronic) Osteoarthritis (Chronic) CKD (chronic kidney disease) stage 3, GFR 30-59 ml/min (Chronic) Dementia (Chronic) HLD (hyperlipidemia) (Chronic) Osteoarthritis, hip, bilateral (Chronic) Chronic kidney disease (Chronic) Alzheimer's disease (Chronic) Lumbar spinal stenosis (Chronic) HTN (hypertension) (Chronic) Hospital Course and Treatment Imaging Results: Clinical Impression(s) from Imaging Studies Lumbar Spine X-Ray 02/21/18 21:20 IMPRESSION: New mild superior endplate compression deformities of L1 and L2 since the prior exam of December 09, 2017. Stable moderate compression deformities of L3 and L4. Exaggerated lumbar lordosis with stable degenerative anterolisthesis of L3, L4 and L5 with intervening degenerative disc changes. Severe posterior facet arthrosis. Electronically Signed: Itzel Soler MD at 22:35 EDT , Service support , Thoracic Spine X-Ray 02/21/18 21:20 IMPRESSION: Severe generalized osteopenia. Severe thoracic kyphosis. Old compression deformities of T6 and T11. Electronically Signed: Olaf Ghosh MD at 22:22 EDT , Service support , Chest X-Ray 02/21/18 21:42 IMPRESSION: No acute cardiopulmonary findings or changes. Negative for new consolidation, focal atelectasis, cardiomegaly or pleural effusion. Electronically Signed: Itzel Soler MD at 22:37 EDT , Service support , Lumbar Spine X-Ray 02/26/18 14:46 IMPRESSION: Fluoroscopic services provided for kyphoplasty of the L1-L2 vertebrae. Electronically Signed: Marlon Macedo MD at 16:07 EDT Tel [phone], Service support , MD Josey: Pain Management Operations: - - kyphoplasty Procedures: None Summary of Care Provided: The patient is a 83 year old F presents with a one-week history of severe back pain in debility. X-ray that showed new compression deformities involving L1 and L2. Patient underwent an L1 kyphoplasty on the fifth. She tolerated the procedure well. Patient is very weak but after insurance case manager discussed with the patient's , he felt comfortable with the patient returning home. The patient will be discharged to home with home health care. Patient is on ergocalciferol at home and is previously had a low 25 the level of 29 in November. Goal level before 50. This will be followed up as outpatient. Patient will follow up with Dr. Dowling in regards to post kyphoplasty follow-up. The patient's compression fractures are due to osteoporosis. [] Discharge Diet: No Restrictions Discharge Activity: Return to Normal Activity, May not drive while taking narcotic pain medications. Call your doctor if your incision/area has: Continuous Slow Oozing, Sudden Increased Bleeding, Increased Pain/ Swelling, Increased Redness Call your doctor if you observe: Fever of 101 or Higher, - - worsening back pain. Home Medications: Medications to take at Discharge Baclofen [Lioresal] 10 mg PO QHS 02/04/17 Donepezil HCl [Aricept] 10 mg PO QHS 02/04/17 Memantine Hydrochloride [Namenda] 10 mg PO BID 02/04/17 Potassium Chloride [Klor-Con M20] 20 meq PO DAILY 02/04/17 Aspirin [Aspirin, Baby] 81 mg PO DAILY@0800 #1 tab.chew 02/12/17 Acetaminophen [Tylenol] 1,000 mg PO Q8H PRN PRN tablet 03/08/17 Menthol/Lanolin/Calamine/Znox [Calmoseptine Ointment] 1 applic TOPICAL TID #1 tube 03/08/17 Metoprolol Tartrate [Lopressor (beta gabriel)] 12.5 mg PO BID #30 tablet 03/08/17 Nystatin Powder [Mycostatin Powder] 1 applic TOPICAL #1 bottle 09/15/17 Vitamin D2 50,000 unit PO QWEEK 02/21/18 Cyclobenzaprine [Flexeril] 5 mg PO TID PRN PRN #15 tab 02/27/18 Hydrocodone Bitart/Apap 5-325 [[place] 5/325] 1 tablet PO Q6H PRN PRN 3 Days #12 tablet 02/27/18 Following Prescrptions Were Given to Patient: Hydrocodone Bitart/Apap 5-325 [[place] 5/325] 1 tablet PO Q6H PRN PRN 3 Days #12 tablet PRN Reason: Moderate-severe pain Cyclobenzaprine [Flexeril] 5 mg PO TID PRN PRN #15 tab PRN Reason: strain, spasm Primary Care Physician: Burak Sampson Chi, MD [Primary Care Provider] - Within 2 Weeks Please Follow Up With: Gladys Dowling MD When: 2-3 weeks Disposition: Home with Home Health Minutes spent on discharge:: 32 Patient Condition:: Fair Medical Necessity - Tobacco Use Smoking Status: Never smoker Tobacco Use: Non-smoker Meaningful Use Info Meaningful Use Diagnoses (Choose all that apply): None applicable Code Visit Inpatient E&M: 18517 Disch Hosp
--- NOTE | 2018-02-28 14:32 | CASEMGMT ---
BERNARDO CORTÉS DC Phone Call. DC Date: 02/27/18 IBIS 13/STRATA 4 DC Disposition: Home with [facility] Intro role of CM to patient's via phone. Stated Home Health Nurse was presently in the home. No questions for RN MOO noted. Deferred further questions d/t Home Health being active. Meredith GONZALEZN RN AC
== END 2018-02-27 11:47 | disposition home health service (06) | DRG 515 ==
LOC: ED 23:34 → MS3 23:46
PROVIDERS: Anesthesiology Pain Medicine; Student in an Organized Health Care Education/Training Program; Admitting Provider Family Medicine; Emergency Provider Emergency Medicine; Family Provider Family Medicine Geriatric Medicine; PCP Family Medicine Geriatric Medicine
PROC: 0QS03ZZ Reposition Lumbar Vertebra, Percutaneous Approach (ICD-10-PCS; principal; 2018-02-26 10:15)
DX: M80.08XA Age-related osteoporosis with current pathological fracture, vertebra(e), initial encounter for fracture (principal); E43 Unspecified severe protein-calorie malnutrition; Z68.1 Body mass index [BMI] 19.9 or less, adult; I12.9 Hypertensive chronic kidney disease with stage 1 through stage 4 chronic kidney disease, or unspecified chronic kidney disease; N18.3 Chronic kidney disease, stage 3 (moderate); E78.5 Hyperlipidemia, unspecified; G30.9 Alzheimer's disease, unspecified; F02.80 Dementia in other diseases classified elsewhere, unspecified severity, without behavioral disturbance, psychotic disturbance, mood disturbance, and anxiety; Z66 Do not resuscitate
CPT/HCPCS: 36415; 71045; 72070; 72100; 76000; 80048; 81001; 82274; 83735; 84484; 85025; 93005; 97110; 97116; 97161; 97166; 97530; 97535; 97802; 99285; J7030; P9612; A4216; J2405

== ENCOUNTER → 2018-06-02 10:58 | Outpatient (CLI) | payer MEDICARE, OTHER, SELFPAY ==
[2018-06-02 13:21] LABS: Vitamin D,25 Hydroxy 44.5 ng/mL (29.95-100.01)
[2018-06-02 13:27] LABS: ALB/GLOB Ratio 0.9 RATIO (0.9-2.4); AST(SGOT) 29 U/L (15-37); Alanine Aminotransfer ALT/SGPT 32 U/L (13-56); Albumin, Serum 3.5 g/dL (3.2-5.0); Alkaline Phosphatase 98 U/L (45-117); Anion Gap 10 (5-15); BUN 24 mg/dL (7-18); BUN/Creat Ratio 44.9 RATIO (10-20); Chloride 106 mmol/L (98-107); Creatinine, Serum 0.53 mg/dL (0.55-1.02); EST Glomerular Filtration Rate 117 mL/min (>60); Est Glom Filt Rate - Afr Amer 141 mL/min (>60); Globulin 3.9 g/dL (2.2-4.2); Glucose 80 mg/dL (74-106); Potassium 3.8 mmol/L (3.5-5.1); Protein, Total 7.4 g/dL (6.4-8.2); Sodium Level 143 mmol/L (136-145); Thyroid Stim Hormone (TSH) 1.83 uIU/mL (0.358-3.74)
[2018-06-02 13:54] LABS: Absolute Neutrophil Count 2.2 X10^3/uL (2.0-7.7); Basophil# 0.04 X10^3/uL; Eosinophil# 0.07 X10^3/uL; Eosinophils% 1.8 % (0-5); Hematocrit 38.8 % (37-47); Hemoglobin 11.3 g/dl (12.0-15.0); Lymphocyte % 28.1 % (19-41); Mean Corp Hgb Conc 29.1 g/gl (32-36); Mean Corpuscular Hgb 23.4 pg (27.0-32.0); Mean Corpuscular Volume 80.3 fL (81-99); Mean Platelet Vol. 11.4 fl (6.2-12.0); Monocyte% 12.8 % (0-10); Neutrophil % 56.3 % (47-70); Platelet Count 239 K/mm3 (150-450); RBC Distribution Width CV 22.1 % (11.6-14.6); RBC Distribution Width SD 64.4 fl (35.1-43.9); Red Blood Count 4.83 M/mm3 (4.2-5.4); White Blood Count 3.9 K/mm3 (4.4-11.0)
[2018-06-02 14:04] LABS: Differential Indicated SCAN CRITERIA MET; POSITIVE COUNT NO; POSITIVE DIFFERENTIAL NO; POSITIVE MORPHOLOGY YES
== END ==
PROVIDERS: Family Provider Family Medicine Geriatric Medicine; PCP Family Medicine Geriatric Medicine; Visit Provider Family Medicine Geriatric Medicine
DX: E55.9 Vitamin D deficiency, unspecified (principal); I10 Essential (primary) hypertension
CPT/HCPCS: 36415; 80053; 82306; 84443; 85025

== ENCOUNTER → 2018-12-02 10:29 | Outpatient (CLI) | payer MEDICARE, OTHER, SELFPAY ==
[2018-12-02 12:46] LABS: Absolute Lymphocyte Count 1.24 X10^3/ul (0.83-4.51); Absolute Neutrophil Count 2.4 X10^3/uL (2.0-7.7); Basophil# 0.02 X10^3/uL; Basophil% 0.5 % (0-1); Eosinophil# 0.06 X10^3/uL; Eosinophils% 1.4 % (0-5); Hemoglobin 13.2 g/dl (12.0-15.0); Lymphocyte # 1.24 X10^3/ul (4.0); Lymphocyte % 28.8 % (19-41); Mean Corp Hgb Conc 30.7 g/gl (32-36); Mean Corpuscular Hgb 27.6 pg (27.0-32.0); Mean Platelet Vol. 11.2 fl (6.2-12.0); Monocyte# 0.59 X10^3/uL; Monocyte% 13.7 % (0-10); Neutrophil # 2.38 X10^3/uL (2.7-7.7); Neutrophil % 55.4 % (47-70); Platelet Count 231 K/mm3 (150-450); RBC Distribution Width CV 16.5 % (11.6-14.6); RBC Distribution Width SD 54.5 fl (35.1-43.9); Red Blood Count 4.78 M/mm3 (4.2-5.4); White Blood Count 4.3 K/mm3 (4.4-11.0)
[2018-12-02 12:59] LABS: Vitamin D,25 Hydroxy 48.1 ng/mL (29.95-100.01)
[2018-12-02 13:08] LABS: ALB/GLOB Ratio 0.9 RATIO (0.9-2.4); AST(SGOT) 23 U/L (15-37); Alanine Aminotransfer ALT/SGPT 28 U/L (13-56); Albumin, Serum 3.5 g/dL (3.2-5.0); Alkaline Phosphatase 93 U/L (45-117); Anion Gap 5 (5-15); BUN 21 mg/dL (7-18); BUN/Creat Ratio 36.1 RATIO (10-20); Calcium,Total 9.1 mg/dL (8.5-10.1); Chloride 105 mmol/L (98-107); Creatinine, Serum 0.58 mg/dL (0.55-1.02); EST Glomerular Filtration Rate 105 mL/min (>60); Est Glom Filt Rate - Afr Amer 128 mL/min (>60); Globulin 3.9 g/dL (2.2-4.2); Glucose 64 mg/dL (74-106); Potassium 3.6 mmol/L (3.5-5.1); Protein, Total 7.4 g/dL (6.4-8.2); Sodium Level 138 mmol/L (136-145); Thyroid Stim Hormone (TSH) 1.33 uIU/mL (0.358-3.74)
[2018-12-02 13:12] LABS: POSITIVE COUNT NO; POSITIVE DIFFERENTIAL NO; POSITIVE MORPHOLOGY NO
== END ==
PROVIDERS: Family Provider Family Medicine Geriatric Medicine; PCP Family Medicine Geriatric Medicine; Visit Provider Family Medicine Geriatric Medicine
DX: E55.9 Vitamin D deficiency, unspecified (principal); I10 Essential (primary) hypertension
CPT/HCPCS: 36415; 80053; 82306; 84443; 85025

== ENCOUNTER → 2019-02-04 15:41 | Outpatient (CLI) | payer MEDICARE, OTHER, SELFPAY ==
--- NOTE | 2019-02-04 15:48 | RAD_ITS ---
STUDY: X-RAY - LUMBAR SPINE REASON FOR EXAM: Female, 83 years old. Back pain TECHNIQUE: 2 view(s) of the lumbar spine were obtained. COMPARISON: Prior study of 02/21/2018 FINDINGS: Normal lumbar lordosis. There is no substantial scoliosis. There are grade 1 anterolisthesis of L3 relative to L4, L4 relative to L5, and L5 relative to S1. There is generalized demineralization of the vertebral bodies. There are old compression deformities of varying degrees of L1-L4. There are status post vertebroplasty changes of L1 and L2, new in the interval. There is narrowing of the L4-5 and L5-S1 disc spaces. There is vacuum phenomenon at the L3-4 level. There is no evidence of acute fracture. There are calcified plaques of the abdominal aorta. RAD/Lumbar Spine 2 or 3 Views IMPRESSION: Grade 1 anterolistheses of L3 relative to L4, L4 relative to L5, and L5 relative to S1, similar to the previous study. There are old compression deformities of varying degrees of L1-L4, similar to the previous study. Status post vertebroplasty changes of L1 and L2 are noted, which are new in the interval. Generalized osteopenia is present. Electronically Signed: Olaf Ghosh MD at 17:00 EDT , Service support ,
== END ==
PROVIDERS: Family Provider Family Medicine Geriatric Medicine; PCP Family Medicine Geriatric Medicine; Referring Provider Anesthesiology Pain Medicine; Visit Provider Anesthesiology Pain Medicine
DX: M54.5 Low back pain (principal)
CPT/HCPCS: 72100

== ENCOUNTER → 2019-04-21 15:03 | Outpatient (CLI) | payer MEDICARE, OTHER, SELFPAY ==
--- NOTE | 2019-04-21 09:40 | TISS_PTH ---
PATIENT: MARTHA MONSIVAIS LOC: [facility] U#:[id number] AGE/SX: 89/F ROOM: RE04/21/[address]: Dr. Burak Sampson MD : [id number] BED: DIS: SPEC #: [id number] RECD: 04/21/19 17:34 STATUS: DELANEY BRIANNA #: [id number] TOÑO: 04/21/19 09:[address]: Burak Sampson Chi DEPT: SURGICAL PATHOLOGY RECD BY: Efraín Lund Tissues: Skin of forearm, NOS Procedures: Surgery Specimen Level IV HEADER OPERATION: Not noted PRE-OP DIAGNOSIS: L98.9 TISSUE SUBMITTED: Left forearm biopsy MICROSCOPIC DIAGNOSIS Lesion of left forearm, biopsy: Verrucal vulgaris with associated cutaneous horn. AM:patrick 04/23/19 MICROSCOPIC DESCRIPTION Slides are reviewed. GROSS DESCRIPTION Received in fixative is one container labeled with the patient's name and designated left forearm. The specimen consists of a conical piece of odom-white skin measuring 1.4 x 0.8 x 0.8 cm. The specimen is inked, serially sectioned and submitted entirely in one cassette. / SJ:rg 04/22/19 TC:5 CPT: 16496
== END ==
PROVIDERS: Family Provider Family Medicine Geriatric Medicine; PCP Family Medicine Geriatric Medicine; Referring Provider Family Medicine Geriatric Medicine; Visit Provider Family Medicine Geriatric Medicine
DX: L85.8 Other specified epidermal thickening (principal)
CPT/HCPCS: 88305

== ENCOUNTER → 2019-06-03 13:45 | Outpatient (CLI) | payer MEDICARE, OTHER, SELFPAY ==
[2019-06-03 14:18] LABS: Absolute Lymphocyte Count 1.19 X10^3/uL (0.83-4.51); Absolute Neutrophil Count 1.8 X10^3/uL (2.0-7.7); Basophil# 0.04 X10^3/uL; Basophil% 1.1 % (0-1); Eosinophil# 0.08 X10^3/uL; Eosinophils% 2.2 % (0-5); Hematocrit 46.9 % (37-47); Hemoglobin 14.4 g/dL (12.0-15.0); Lymphocyte # 1.19 X10^3/ul (4.0); Lymphocyte % 33.3 % (19-41); Mean Corp Hgb Conc 30.7 g/dL (32-36); Mean Corpuscular Hgb 28.9 pg (27.0-32.0); Mean Platelet Vol. 11.4 fl (6.2-12.0); Monocyte# 0.49 X10^3/uL; Monocyte% 13.7 % (0-10); NRBC Flagged by Analyzer 0 % (0-5); Neutrophil # 1.75 X10^3/uL (2.7-7.7); Neutrophil % 49.1 % (47-70); Platelet Count 202 K/mm3 (150-450); RBC Distribution Width CV 15.2 % (11.6-14.6); RBC Distribution Width SD 52.8 fl (35.1-43.9); Red Blood Count 4.99 M/mm3 (4.2-5.4); White Blood Count 3.6 K/mm3 (4.4-11.0)
[2019-06-03 14:25] LABS: ALB/GLOB Ratio 1.1 RATIO (0.9-2.4); AST(SGOT) 23 U/L (15-37); Alanine Aminotransfer ALT/SGPT 27 U/L (13-56); Albumin, Serum 3.9 g/dL (3.2-5.0); Alkaline Phosphatase 95 U/L (45-117); Anion Gap 4 (5-15); BUN 18 mg/dL (7-18); BUN/Creat Ratio 31.5 RATIO (10-20); Calcium,Total 9.5 mg/dL (8.5-10.1); Chloride 106 mmol/L (98-107); Creatinine, Serum 0.57 mg/dL (0.55-1.02); EST Glomerular Filtration Rate 108 mL/min (>60); Est Glom Filt Rate - Afr Amer 130 mL/min (>60); Globulin 3.5 g/dL (2.2-4.2); Glucose 72 mg/dL (74-106); Protein, Total 7.4 g/dL (6.4-8.2); Sodium Level 141 mmol/L (136-145); Thyroid Stim Hormone (TSH) 2.08 uIU/mL (0.358-3.74)
[2019-06-03 14:26] LABS: Vitamin D,25 Hydroxy 32.7 ng/mL (29.95-100.01)
== END ==
PROVIDERS: Family Provider Family Medicine Geriatric Medicine; PCP Family Medicine Geriatric Medicine; Visit Provider Family Medicine Geriatric Medicine
DX: E55.9 Vitamin D deficiency, unspecified (principal); I10 Essential (primary) hypertension
CPT/HCPCS: 36415; 80053; 82306; 84443; 85025

== ENCOUNTER → 2019-10-28 13:15 | Outpatient (CLI) | payer MEDICARE, OTHER, SELFPAY ==
--- NOTE | 2019-10-28 13:41 | CT_ITS ---
STUDY: CT ABDOMEN AND PELVIS WITH CONTRAST REASON FOR EXAM: Female, 84 years old. AB HERNIA? LUQ PAIN RADIATION DOSAGE (If Supplied By Facility): CTDIvol = ( 9.80 ) mGy, DLP = ( 273.22 ) mGycm TECHNIQUE: Transaxial images were obtained from the dome of the diaphragm to the symphysis pubis with oral contrast. Oral and amp; IV Readi-CAT and amp; 75mL Isovue-300 was administered. Sagittal and coronal images were reconstructed. Individualized dose optimization techniques were used for this CT. COMPARISON: None. FINDINGS: Findings suggestive of minimal scarring at the right lung base The visualized portions of the heart are within normal limits. Normal liver. There are multiple gallstones. There are multiple benign calcified granulomata of the spleen. Normal pancreas. Normal bilateral adrenal glands. There is a 2.6 x 2 cm cyst in the upper lateral aspect of the right kidney. Normal left kidney. Moderate sized hiatal hernia. Normal small intestine. Normal colon. There is non-visualization of the appendix. There is diffuse atherosclerotic calcification of the abdominal aorta, without a demonstrated aneurysm. Normal inferior vena cava. Normal retroperitoneum. Normal urinary bladder. There is absence of the uterus consistent with a prior hysterectomy. Normal abdominal wall. There are diffuse degenerative changes of the visualized lumbar spine. Grade 1 anterior listhesis of L3 on L4 and L4 on L5. Prior vertebroplasty of the L1 and L2 vertebrae. Almost complete compression of the T11 vertebrae. CT/Abdomen/Pelvis WITH Contrast IMPRESSION: Multiple gallstones. Moderate sized hiatal hernia. Right renal cyst. Electronically Signed: Marlon Macedo, at 15:12 EDT , Service support ,
[2019-10-28 14:25] LABS: CREATININE FINGERSTICK 0.7 mg/dL (0.55-1.02); EGFR FINGERSTICK > 60.0000 mL/min (>60)
== END ==
PROVIDERS: PCP Family Medicine Geriatric Medicine; Referring Provider Family Medicine Geriatric Medicine; Visit Provider Family Medicine Geriatric Medicine
DX: K44.9 Diaphragmatic hernia without obstruction or gangrene (principal); K80.20 Calculus of gallbladder without cholecystitis without obstruction
CPT/HCPCS: 74177; Q9967

== ENCOUNTER → 2020-06-09 09:37 | Outpatient (CLI) | payer MEDICARE, OTHER, SELFPAY ==
[2020-06-09 16:32] LABS: Absolute Lymphocyte Count 1.03 X10^3/uL (0.83-4.51); Absolute Neutrophil Count 2.3 X10^3/uL (2.0-7.7); Basophil# 0.05 X10^3/uL; Basophil% 1.2 % (0-1); Eosinophil# 0.11 X10^3/uL; Eosinophils% 2.7 % (0-5); Hematocrit 48.7 % (37-47); Hemoglobin 15.6 g/dL (12.0-15.0); Lymphocyte # 1.03 X10^3/ul (4.0); Lymphocyte % 25.6 % (19-41); Mean Corpuscular Hgb 30.8 pg (27.0-32.0); Mean Corpuscular Volume 96.1 fL (81-99); Mean Platelet Vol. 11.2 fl (6.2-12.0); Monocyte# 0.49 X10^3/uL; Monocyte% 12.2 % (0-10); NRBC Flagged by Analyzer 0 % (0-5); Neutrophil # 2.34 X10^3/uL (2.7-7.7); Neutrophil % 58.1 % (47-70); Platelet Count 216 K/mm3 (150-450); RBC Distribution Width CV 13.9 % (11.6-14.6); RBC Distribution Width SD 49.2 fl (35.1-43.9); Red Blood Count 5.07 M/mm3 (4.2-5.4)
[2020-06-09 16:49] LABS: Vitamin D,25 Hydroxy 42.4 ng/mL
[2020-06-09 17:02] LABS: AST(SGOT) 25 U/L (15-37); Alanine Aminotransfer ALT/SGPT 31 U/L (13-56); Albumin, Serum 3.6 g/dL (3.2-5.0); Alkaline Phosphatase 102 U/L (45-117); Anion Gap 5 (5-15); BUN 22 mg/dL (7-18); BUN/Creat Ratio 33.7 RATIO (10-20); Calcium,Total 9.3 mg/dL (8.5-10.1); Chloride 106 mmol/L (98-107); Creatinine, Serum 0.65 mg/dL (0.55-1.02); EST Glomerular Filtration Rate 92 mL/min (>60); Est Glom Filt Rate - Afr Amer 111 mL/min (>60); Globulin 3.6 g/dL (2.2-4.2); Glucose 105 mg/dL (74-106); Potassium 4.3 mmol/L (3.5-5.1); Protein, Total 7.2 g/dL (6.4-8.2); Sodium Level 141 mmol/L (136-145); Thyroid Stim Hormone (TSH) 1.37 uIU/mL (0.358-3.74)
== END ==
PROVIDERS: PCP Family Medicine Geriatric Medicine; Visit Provider Family Medicine Geriatric Medicine
DX: I10 Essential (primary) hypertension (principal); E55.9 Vitamin D deficiency, unspecified
CPT/HCPCS: 36415; 80053; 82306; 84443; 85025

== ENCOUNTER → 2020-12-08 14:21 | Outpatient (CLI) | payer MEDICARE, OTHER, SELFPAY ==
[2020-12-08 16:04] LABS: Absolute Lymphocyte Count 0.97 X10^3/uL (0.83-4.51); Absolute Neutrophil Count 2.2 X10^3/uL (2.0-7.7); Basophil# 0.03 X10^3/uL; Basophil% 0.8 % (0-1); Eosinophil# 0.06 X10^3/uL; Eosinophils% 1.6 % (0-5); Hemoglobin 15.2 g/dL (12.0-15.0); Lymphocyte # 0.97 X10^3/ul (0.83-4.51); Lymphocyte % 25.3 % (19-41); Mean Corp Hgb Conc 31.7 g/dL (32-36); Mean Corpuscular Volume 94.9 fL (81-99); Mean Platelet Vol. 11.1 fl (6.2-12.0); Monocyte# 0.53 X10^3/uL; Monocyte% 13.8 % (0-10); NRBC Flagged by Analyzer 0 % (0-5); Neutrophil # 2.23 X10^3/uL (2.7-7.7); Neutrophil % 58.2 % (47-70); Platelet Count 214 K/mm3 (150-450); RBC Distribution Width CV 14.3 % (11.6-14.6); RBC Distribution Width SD 50.1 fl (35.1-43.9); Red Blood Count 5.06 M/mm3 (4.2-5.4); White Blood Count 3.8 K/mm3 (4.4-11.0)
[2020-12-08 16:17] LABS: Vitamin D,25 Hydroxy 52.7 ng/mL
[2020-12-08 16:28] LABS: ALB/GLOB Ratio 0.9 RATIO (0.9-2.4); AST(SGOT) 24 U/L (15-37); Alanine Aminotransfer ALT/SGPT 22 U/L (13-56); Albumin, Serum 3.5 g/dL (3.2-5.0); Alkaline Phosphatase 116 U/L (45-117); Anion Gap 5 (5-15); BUN 17 mg/dL (7-18); BUN/Creat Ratio 28.8 RATIO (10-20); Calcium,Total 9.3 mg/dL (8.5-10.1); Chloride 106 mmol/L (98-107); Creatinine, Serum 0.59 mg/dL (0.55-1.02); EST Glomerular Filtration Rate 103 mL/min (>60); Est Glom Filt Rate - Afr Amer 125 mL/min (>60); Globulin 3.7 g/dL (2.2-4.2); Glucose 76 mg/dL (74-106); Potassium 4.2 mmol/L (3.5-5.1); Protein, Total 7.2 g/dL (6.4-8.2); Sodium Level 142 mmol/L (136-145); Thyroid Stim Hormone (TSH) 1.62 uIU/mL (0.358-3.74)
== END ==
PROVIDERS: PCP Family Medicine Geriatric Medicine; Visit Provider Family Medicine Geriatric Medicine
DX: I10 Essential (primary) hypertension (principal); E55.9 Vitamin D deficiency, unspecified
CPT/HCPCS: 36415; 80053; 82306; 84443; 85025

== ENCOUNTER → 2021-01-23 04:00 | Outpatient (REF) | payer MEDICARE, OTHER, SELFPAY ==
[2021-01-23 07:59] LABS: Hematocrit 42.7 % (37-47); Hemoglobin 13.5 g/dL (12.0-15.0); Mean Corp Hgb Conc 31.6 g/dL (32-36); Mean Corpuscular Hgb 30.2 pg (27.0-32.0); Mean Corpuscular Volume 95.5 fL (81-99); Mean Platelet Vol. 11.6 fl (6.2-12.0); Platelet Count 193 K/mm3 (150-450); RBC Distribution Width CV 14.6 % (11.6-14.6); RBC Distribution Width SD 50.7 fl (35.1-43.9); Red Blood Count 4.47 M/mm3 (4.2-5.4); White Blood Count 3.8 K/mm3 (4.4-11.0)
[2021-01-23 08:21] LABS: Anion Gap 4 (5-15); BUN 16 mg/dL (7-18); BUN/Creat Ratio 49.1 RATIO (10-20); Calcium,Total 8.6 mg/dL (8.5-10.1); Chloride 108 mmol/L (98-107); Creatinine, Serum 0.33 mg/dL (0.55-1.02); EST Glomerular Filtration Rate 205 mL/min (>60); Est Glom Filt Rate - Afr Amer 248 mL/min (>60); Glucose 66 mg/dL (74-106); Potassium 3.6 mmol/L (3.5-5.1); Sodium Level 142 mmol/L (136-145)
== END ==
LOC: OLS.WCC 04:00
PROVIDERS: PCP Family Medicine Geriatric Medicine; Referring Provider Family Medicine; Visit Provider Family Medicine
DX: F03.90 Unspecified dementia, unspecified severity, without behavioral disturbance, psychotic disturbance, mood disturbance, and anxiety (principal); I10 Essential (primary) hypertension; E78.5 Hyperlipidemia, unspecified; Z79.899 Other long term (current) drug therapy
CPT/HCPCS: 36415; 80048; 85027

== ENCOUNTER → 2021-02-20 04:00 | Outpatient (REF) | payer MEDICARE, OTHER, SELFPAY ==
[2021-02-20 07:44] LABS: Hematocrit 39.9 % (37-47); Hemoglobin 12.8 g/dL (12.0-15.0); Mean Corp Hgb Conc 32.1 g/dL (32-36); Mean Corpuscular Hgb 30.5 pg (27.0-32.0); Mean Platelet Vol. 11.2 fl (6.2-12.0); Platelet Count 198 K/mm3 (150-450); RBC Distribution Width CV 14.7 % (11.6-14.6); RBC Distribution Width SD 51.3 fl (35.1-43.9); White Blood Count 3.9 K/mm3 (4.4-11.0)
[2021-02-20 07:54] LABS: Anion Gap 4 (5-15); BUN 19 mg/dL (7-18); BUN/Creat Ratio 46.8 RATIO (10-20); Calcium,Total 8.8 mg/dL (8.5-10.1); Chloride 105 mmol/L (98-107); Creatinine, Serum 0.41 mg/dL (0.55-1.02); EST Glomerular Filtration Rate 159 mL/min (>60); Est Glom Filt Rate - Afr Amer 192 mL/min (>60); Glucose 66 mg/dL (74-106); Potassium 2.8 mmol/L (3.5-5.1); Sodium Level 145 mmol/L (136-145)
[2021-02-20 08:23] LABS: BNP,B-Type NATRIURETIC PEPTIDE 138.2 pg/mL (0-100)
== END ==
LOC: OLS.WCC 04:00
PROVIDERS: PCP Family Medicine Geriatric Medicine; Referring Provider Family Medicine; Visit Provider Family Medicine
DX: I10 Essential (primary) hypertension (principal); R60.9 Edema, unspecified; R06.9 Unspecified abnormalities of breathing
CPT/HCPCS: 36415; 80048; 83880; 85027

== ENCOUNTER → 2021-02-28 04:00 | Outpatient (REF) | payer MEDICARE, OTHER, SELFPAY ==
[2021-02-28 09:46] LABS: Anion Gap 5 (5-15); BUN 22 mg/dL (7-18); BUN/Creat Ratio 51.9 RATIO (10-20); Calcium,Total 9.2 mg/dL (8.5-10.1); Chloride 105 mmol/L (98-107); Creatinine, Serum 0.42 mg/dL (0.55-1.02); EST Glomerular Filtration Rate 151 mL/min (>60); Est Glom Filt Rate - Afr Amer 183 mL/min (>60); Glucose 68 mg/dL (74-106); Potassium 4.1 mmol/L (3.5-5.1); Sodium Level 138 mmol/L (136-145)
== END ==
LOC: OLS.WCC 04:00
PROVIDERS: PCP Family Medicine Geriatric Medicine; Visit Provider Family Medicine
DX: I10 Essential (primary) hypertension (principal); Z79.899 Other long term (current) drug therapy
CPT/HCPCS: 36415; 80048

== ENCOUNTER 2021-03-05 12:00 | Inpatient (IN) | payer MEDICARE, OTHER, SELFPAY ==
[2021-03-05] VITALS (11 sets, daily range): BP systolic 121–140; BP diastolic 61–80; PULSE 51–72; RESP 17–20; TEMP 36.6–36.9; O2SAT 85–97; BMI 20.7; BMI 19.3
--- NOTE | 2021-03-05 12:19 | EKG12_ITS ---
Test Reason : FALL Blood Pressure : / mmHG Vent. Rate : 050 BPM Atrial Rate : 050 BPM P-R Int : 136 ms QRS Dur : 110 ms QT Int : 464 ms P-R-T Axes : 044 005 -07 degrees QTc Int : 423 ms Sinus bradycardia Right bundle branch block Abnormal ECG Confirmed by RANJIT MARIA, LOYD ([id number]), editorial manager SKYLAR MARTINEZ ([id number]) on 03/06/2021 1:39:06 PM Referred By: CARMEN Confirmed By:LOYD CHURCH MD
--- NOTE | 2021-03-05 12:19 | CT_ITS ---
STUDY: CT CERVICAL SPINE WITHOUT CONTRAST REASON FOR EXAM: Female, 86 years old. Fall trauma RADIATION DOSAGE (If Supplied By Facility): CTDIvol = ( ) mGy, DLP = ( ) mGycm TECHNIQUE: High resolution transaxial imaging was performed without contrast material. Sagittal and coronal images were reconstructed. Individualized dose optimization techniques were used for this CT. COMPARISON: None FINDINGS: Craniocervical junction and cervical spine are intact and aligned. Paraspinous soft tissues are normal. Mineralization is heterogeneously decreased. Spinal canal is patent at all levels. Neural foramina are patent. CT/Spine Cervical without Contras IMPRESSION: 1. No acute injury. 2. Decreased mineralization, osteoporosis, possibility of separate superimposed disease such as multiple myeloma is present. Laboratory assessment advised. Electronically Signed: Marycarmen Carroll MD at 14:41 EDT Tel , Service support ,
--- NOTE | 2021-03-05 12:19 | CT_ITS ---
STUDY: CT BRAIN WITHOUT CONTRAST REASON FOR EXAM: Female, 86 years old. Fall trauma Alzheimer''s hypertension RADIATION DOSAGE (If Supplied By Facility): CTDIvol = ( 44.99 ) mGy, DLP = ( 745.49 ) mGycm TECHNIQUE: Transaxial CT imaging of the brain was performed without administration of intravenous contrast material. Individualized dose optimization techniques were used for this CT. COMPARISON: No relevant priors. FINDINGS: Brain parenchyma is without focal lesions, mass effect, acute intracranial hemorrhage, extra parenchymal fluid collections, hydrocephalus or herniation. The skull is intact. There is no skull fracture. There is heterogeneous skull base demineralization, possibly osteoporosis and/or superimposed systemic disease such as multiple myeloma, lucent/lytic metastases. CT/Brain/Head without Contrast IMPRESSION: 1. No acute abnormality. 2. Skull base demineralization, see above for discussion. Electronically Signed: Marycarmen Carroll MD at 14:40 EDT Tel , Service support ,
--- NOTE | 2021-03-05 12:21 | ED.VIS.FALL ---
HPI HPI - Fall History of Present Illness Chief Complaint: Fall Detail of Chief Complaint: Fall that occurred today. Informant: patient and family Narrative Narrative: Patient presents via EMS from residential after sustaining a fall this morning. Patient is a poor historian and really is unclear what happened. Patient complaining of right hip pain. She thinks she may have bumped her head slightly. Patient has history of dementia. She is a poor historian. A lot of the history comes from the patient's son. [facility] Medical History (Updated 03/05/21 @ 14:[address] Anju Kc, DO) Alzheimer disease Hyperlipidemia Hypertension Home Medications baclofen 10 mg PO QHS 02/04/17 [History Last Taken Unknown] donepezil 10 mg PO QHS 02/04/17 [History Last Taken Unknown] memantine 10 mg PO BID 02/04/17 [History Last Taken Unknown] potassium chloride [Klor-Con M20] 20 meq PO DAILY 02/04/17 [History Last Taken Unknown] aspirin 81 mg PO DAILY@0800 #1 tab.chew 02/12/17 [Rx Last Taken Unknown] acetaminophen 1,000 mg PO Q8H PRN PRN tab 03/08/17 [Rx Last Taken Unknown] metoprolol tartrate 12.5 mg PO BID #30 tab 03/08/17 [Rx Last Taken Unknown] cholecalciferol (vitamin D3) 1,000 unit PO DAILY 09/04/20 [History Last Taken Unknown] multivitamin 1 ea PO DAILY 09/04/20 [History Last Taken Unknown] Allergy/AdvReac Type Severity Reaction Status Date / Time latex Allergy Swelling Verified 03/05/21 12:01 Social History Smoking Status: Never smoker ROS [facility] ED Constitutional Constitutional ED: Reports systems reviewed and no addt'l complaints, except as documented; Denies body ache(s), change in weight or chills Eyes Eyes: Denies acute decrease in peripheral vision, change in vision, double vision or loss of vision ENT ENT ED: Reports none; Denies ear pain, lip swelling, loss taste/smell, neck pain, otalgia or sore throat Cardiovascular Cardiovascular: Reports none; Denies abdominal pain, chest pain with activity, leg edema, lightheadedness, palpitations, rapid heart rate or syncope Respiratory/Chest Respiratory/Chest: Reports none; Denies change in mental status, dry cough, dyspnea, hemoptysis, shortness of breath at rest or shortness of breath with exertion Gastrointestinal Gastrointestinal: Reports none; Denies abdominal pain, change in stool character, diarrhea, hematemesis, hematochezia, melena, rectal bleeding or vomiting Genitourinary Genitourinary ED: Reports none; Denies abdominal discomfort, anuria, dysuria, genital pain or polyuria Musculoskeletal Musculoskeletal: Reports none and other Details: Right hip pain and hip deformity ; Denies arthralgias, back pain, difficulty walking, extremity pain, muscle weakness or myalgias Integumentary Reports none; Denies abscess or rash Neurologic Neurologic: Reports none; Denies abnormal gait, confusion, focal weakness, frequent falls, headache(s), loss of vision, numbness, paresthesias, radicular pain, vertigo or weakness Psychiatric Psychiatric: Reports systems reviewed and no addt'l complaints, except as documented and none; Denies behavioral changes, confusion, difficulty concentrating, hallucinations, suicidal ideation, tactile hallucinations or visual hallucinations Endocrine Endocrinology: Denies none, cold intolerance, excessive sweating, fatigue or heat intolerance Hematologic/Lymphatic Hematologic/Lymphatic: Reports none; Denies anemia, easy bleeding or easy bruising Allergic/Immunologic Allergic/Immunologic ED: Denies as per HPI, none, lip swelling, mouth swelling, throat swelling, tongue swelling or hives EXAM Physical Exam Const Vital Signs: 03/05/21 12:01 03/05/21 12:07 Temperature 97.8 F Temperature Source Oral Pulse Rate 51 L Respiratory Rate 17 Respiratory Effort Normal Non-Labored Respiratory Depth Normal Respiratory Pattern Normal Blood Pressure 133/61 H Blood Pressure Mean 85 Pulse Ox 96 95 Oxygen Delivery Method Room Air Room Air Positive well nourished and well developed General Appearance ED: well developed and NAD HEENT Reports TM's clear and moist mucous membranes normocephalic and atraumatic; Negative for trauma or tenderness Tympanic Membrane ED: Yes TM's clear Eyes PERRL and EOMs intact bilaterally General Eye ED: Negative for pale conjunctiva or scleral icterus Neck no lymphadenopathy, supple and no JVD General: Negative for tenderness Chest Wall inspection of chest normal and palpation of chest normal Chest: Negative for tenderness Resp normal respiratory effort and clear to auscultation bilaterally Effort and Inspection: Negative for respiratory distress or pain with movement Auscultation: Negative for rhonchi, wheezes or diminished lung sounds Cardio regular rate, regular rhythm, S1 normal heart sound, S2 normal heart sound and no murmurs Peripheral Pulses: pulses 2+ throughout GI normal to inspection, nondistended, normoactive bowel sounds, soft to palpation, non-tender, non-distended and no masses Back/Spine no CVA tenderness and no thoracic nor lumbar tenderness Extremity Extremity Narrative: Right hip-patient has tenderness palpation and pain with logrolling. The lower extremity is shortened and internally rotated. She is neurovascular intact distally. General Extremety ED: Negative for edema General Extremity: Negative for edema Neuro oriented x3, CN's II-XII intact bilaterally, no sensory deficits noted and gait normal Sensorium / Orientation: awake, alert, oriented to person, oriented to place and oriented to time Motor Exam: strength 5/5 throughout and strength abnormal Psych mental status grossly normal Skin no rashes or lesions noted and no wounds MDM MDM MDM Narrative Medical decision making narrative: Patient noted to have fracture of her right hip. I discussed case with orthopedic surgeon on-call Dr. Moran and also will discuss with hospitalist evaluate patient for admission. Lab Data Attestation: I reviewed the patient's lab results. Labs: Laboratory Results - last 24 hr 03/05/21 03/05/21 11:48 11:48 WBC 4.9 RBC 4.77 Hgb 14.3 Hct 45.8 MCV 96.0 MCH 30.0 MCHC 31.2 L RDW Std Deviation 50.2 H RDW Coeff of Jasmin 14.2 Plt Count 221 MPV 10.8 Immature Gran % (Auto) 1.200 H Neut % (Auto) 59.7 Lymph % (Auto) 24.2 Sutton % (Auto) 12.3 H Eos % (Auto) 1.8 Baso % (Auto) 0.8 Absolute Neuts (auto) 2.9 Absolute Lymphs (auto) 1.18 Nucleated RBC % 0 Sodium 140 Potassium 3.9 Chloride 102 Carbon Dioxide 31.0 Anion Gap 7 BUN 22 H Creatinine 0.59 Estim Creat Clear Calc 29.69 Est GFR (MDRD) Af Amer 125 Est GFR (MDRD) Non-Af 103 BUN/Creatinine Ratio 37.4 H Glucose 72 L Calcium 9.4 Troponin I High Sens 8 EKG Initial EKG: Attestation: I personally reviewed and interpreted this EKG as follows: Comments: Sinus rhythm with a ventricular rate of 50 bpm with a right bundle branch block Discharge Plan Triage Chief Complaint: Fall ED Provider: Anju Kc Dx/Rx/DC Orders Clinical Impression: Closed fracture of right hip, Fall, Bradycardia Prescriptions: No Action donepezil 10 MG tablet 10 mg PO QHS RF: 0 potassium chloride [Klor-Con M20] 20 MEQ Tab.Er.Prt 20 meq PO DAILY RF: 0 baclofen 10 MG tablet 10 mg PO QHS RF: 0 memantine 10 MG tablet 10 mg PO BID RF: 0 aspirin 81 MG Tab.Chew 81 mg PO DAILY@0800 Qty: 1 RF: 0 acetaminophen 500 MG tablet 1,000 mg PO Q8H PRN PRN (Reason: Mild Pain (-08/31)) RF: 0 metoprolol tartrate 25 MG tablet 12.5 mg PO BID Qty: 30 RF: 0 multivitamin 1 EACH tablet 1 ea PO DAILY RF: 0 cholecalciferol (vitamin D3) 1,000 UNIT tablet 1,000 unit PO DAILY RF: 0 Primary Care Provider: Burak Sampson Chi Referrals: Burak Sampson Chi, MD [Primary Care Provider] - Disposition Disposition: Acute Care Hospital [facility]
[2021-03-05 12:37] LABS: Absolute Lymphocyte Count 1.18 X10^3/uL (0.83-4.51); Absolute Neutrophil Count 2.9 X10^3/uL (2.0-7.7); Basophil# 0.04 X10^3/uL; Basophil% 0.8 % (0-1); Eosinophil# 0.09 X10^3/uL; Eosinophils% 1.8 % (0-5); Hematocrit 45.8 % (37-47); Hemoglobin 14.3 g/dL (12.0-15.0); Lymphocyte # 1.18 X10^3/ul (0.83-4.51); Lymphocyte % 24.2 % (19-41); Mean Corp Hgb Conc 31.2 g/dL (32-36); Mean Platelet Vol. 10.8 fl (6.2-12.0); Monocyte% 12.3 % (0-10); NRBC Flagged by Analyzer 0 % (0-5); Neutrophil % 59.7 % (47-70); Platelet Count 221 K/mm3 (150-450); RBC Distribution Width CV 14.2 % (11.6-14.6); RBC Distribution Width SD 50.2 fl (35.1-43.9); Red Blood Count 4.77 M/mm3 (4.2-5.4); White Blood Count 4.9 K/mm3 (4.4-11.0)
[2021-03-05] MEDS: Ondansetron 4 MG/2 ML Vial IV (12:45)
[2021-03-05] MEDS: Morphine 2 MG/ML Syringe IV (12:45)
--- NOTE | 2021-03-05 12:49 | RAD_ITS ---
STUDY: X-RAY - PELVIS AND RIGHT HIP REASON FOR EXAM: Female, 86 years old. fall TECHNIQUE: 3 views of the pelvis and hip. COMPARISON: None. FINDINGS: There is mildly angulated right basicervical femoral fracture. Femoral head is located. Remainder of the pelvis is suboptimally seen. Sacrum is completely obscured by feces. Contralateral left hip is located. RAD/HIP, UNI W/ Pelvis 2-3 Views IMPRESSION: 1. Right basicervical femoral fracture. 2. Limited assessment of pelvis, refer to CT to evaluate for pelvic fractures. Electronically Signed: Marycarmen Carroll MD at 14:59 EDT Tel , Service support ,
[2021-03-05 12:51] LABS: Anion Gap 7 (5-15); BUN 22 mg/dL (7-18); BUN/Creat Ratio 37.4 RATIO (10-20); Calcium,Total 9.4 mg/dL (8.5-10.1); Chloride 102 mmol/L (98-107); Creatinine, Serum 0.59 mg/dL (0.55-1.02); EST Glomerular Filtration Rate 103 mL/min (>60); Est Glom Filt Rate - Afr Amer 125 mL/min (>60); Estimated Creatinine Clearance 29.69 ml/min; Glucose 72 mg/dL (74-106); Potassium 3.9 mmol/L (3.5-5.1); Sodium Level 140 mmol/L (136-145); Troponin-I HS 8 pg/mL (3.0-54.0)
--- NOTE | 2021-03-05 13:30 | RAD_ITS ---
STUDY: X-RAY CHEST REASON FOR EXAM: Female, 86 years old. fall TECHNIQUE: Frontal portable view of the chest COMPARISON: 21 February 2018 FINDINGS: Lungs are clear. There is no pneumothorax, pulmonary edema or pleural effusions. The heart is moderately enlarged. There is osteoporosis with lower thoracic cement augmented compression fractures. There is remote left humeral surgical anchor. RAD/Chest 1 View (Portable) IMPRESSION: No acute abnormality. Moderate cardiomegaly. Electronically Signed: Marycarmen Carroll MD at 14:55 EDT Tel , Service support ,
[2021-03-05] MEDS: Morphine 4 MG/ML Syringe IV ×3 (14:24→22:51)
--- NOTE | 2021-03-05 14:28 | HP.PCM.HOS_ITS ---
Documented by User: Jeannette King NP, MANAGER CARD-C 03/05/21 14:50 HPI - General HPI Narrative MARTHA MONSIVAIS, is a 86 F who presents to the emergency room secondary to hip pain following reported fall at long term. Patient is from [facility]. She has significant dementia and unable to provide HPI. No family at bedside during exam. Patient states she is painful and intermittently yelling out in pain. She reports her hips hurt. She states she does not remember a fall. She denies other pain location. Denies other symptoms or complaints. Per records, she has a history of chronic back pain, paroxysmal atrial fibrillation, hypertension, hyperlipidemia, Alzheimer's dementia, severe protein calorie malnutrition. [facility] Medical History Alzheimer disease Hyperlipidemia Hypertension Home Medications baclofen 10 mg PO QHS 02/04/17 [History Last Taken Unknown] potassium chloride [Klor-Con M20] 20 meq PO BID 02/04/17 [History Last Taken Unknown] acetaminophen 1,000 mg PO Q8H PRN PRN tab 03/08/17 [Rx Last Taken Unknown] multivitamin 1 ea PO DAILY 09/04/20 [History Last Taken Unknown] aspirin 81 mg PO DAILY@0800 03/05/21 [History Last Taken Unknown] furosemide 20 mg PO DAILY 03/05/21 [History Last Taken Unknown] gabapentin 300 mg PO DAILY 03/05/21 [History Last Taken Unknown] metoprolol tartrate 12.5 mg PO BID 03/05/21 [History Last Taken Unknown] senna-docusate sodium 2 tab PO BID 03/05/21 [History Last Taken Unknown] trazodone 50 mg PO QHS 03/05/21 [History Last Taken Unknown] Allergy/AdvReac Type Severity Reaction Status Date / Time latex Allergy Swelling Verified 03/05/21 12:01 Family History Father Heart disease Mother Cancer Surgical History H/O: hysterectomy Hx of tonsillectomy Social History housing: long term Smoking Status: Never smoker alcohol intake: never substance use type: does not use ROS Review of Systems ROS Unobtainable: other Details: Due to dementia, unable to provide ROS. Does report hip pain. Vital Signs Vital Signs Vital Signs: 03/05/21 12:01 03/05/21 12:07 Temperature 97.8 F Temperature Source Oral Pulse Rate 51 L Respiratory Rate 17 Respiratory Effort Normal Non-Labored Respiratory Depth Normal Respiratory Pattern Normal Blood Pressure 133/61 H Blood Pressure Mean 85 Pulse Ox 96 95 Oxygen Delivery Method Room Air Room Air Weight Weight: 99 lb Body Mass Index (BMI) 20.7 Physical Exam Const alert Constitutional Narrative: Intermittently yelling out, appears uncomfortable, confused at baseline due to underlying dementia Nutritional Appearance: cachectic HEENT normocephalic and moist oral mucous membranes Eyes PERRL, EOMs intact bilaterally and conjunctivae normal Neck no lymphadenopathy Resp normal respiratory effort and clear to auscultation bilaterally Cardio regular rate, regular rhythm and no murmurs Peripheral Pulses: pulses 2+ throughout GI normal to inspection, nondistended, normoactive bowel sounds, non-tender and non-distended Extremity normal to inspection Skin no rashes or lesions noted Lesions: no lesions Rashes: no rashes Trauma: no lacerations or abrasions Neuro CN's II-XII intact bilaterally, no focal motor deficits, no sensory deficits noted and deep tendon reflexes 2+ bilaterally Psych mental status grossly normal and affect normal Results Lab / Micro Data Result Diagrams: 03/05/21 11:48 03/05/21 11:48 Labs: Laboratory Results - last 24 hr 03/05/21 11:48: WBC 4.9, RBC 4.77, Hgb 14.3, Hct 45.8, MCV 96.0, MCH 30.0, MCHC 31.2 L, RDW Std Deviation 50.2 H, RDW Coeff of Jasmin 14.2, Plt Count 221, MPV 10.8, Immature Gran % (Auto) 1.200 H, Neut % (Auto) 59.7, Lymph % (Auto) 24.2, Reeves % (Auto) 12.3 H, Eos % (Auto) 1.8, Baso % (Auto) 0.8, Absolute Neuts (auto) 2.9, Absolute Lymphs (auto) 1.18, Nucleated RBC % 0 03/05/21 11:48: Sodium 140, Potassium 3.9, Chloride 102, Carbon Dioxide 31.0, Anion Gap 7, BUN 22 H, Creatinine 0.59, Estim Creat Clear Calc 29.69, Est GFR (MDRD) Af Amer 125, Est GFR (MDRD) Non-Af 103, BUN/Creatinine Ratio 37.4 H, Glucose 72 L, Calcium 9.4, Troponin I High Sens 8 Micro: Microbiology 03/05/21 12:52 Nasal Secretion SARS-CoV-2 Antigen (Rapid) - Final Assessment & Plan Assessment/Plan (1) Closed fracture of right hip: PLAN: 1. Acute traumatic right hip fracture-consult orthopedic medicine. PT/OT. As needed pain regimen. Resides at SNF. QIP surgical risk calculator completed which shows an above average risk of or serious complication. Obtain EKG. 2. History of chronic back pain with history of compression fractures-on baclofen nightly. PRN Tylenol. PT/OT. 3. Paroxysmal atrial fibrillation-on metoprolol. Not on oral anticoagulation. 4. Hypertension-not on regimen, monitor blood pressure. 5. Hyperlipidemia-not on agent. 6. Alzheimer's dementia, unclear behavioral disturbance history-on memantine, donepezil. 7. Severe protein calorie malnutrition-as evidenced by cachectic appearance, low BMI, evidence of muscle and fat loss. Nutrition consult. DVT prophylaxis-Heparin This patient was seen by FLORESITA Gillespie under the supervision of Dr. Byers. Documented by User: Dr. Barrera Byers DO 03/05/21 20:40 HPI - General General Date of Admission: 03/05/21 [facility] Medical History Alzheimer disease Hyperlipidemia Hypertension Home Medications baclofen 10 mg PO QHS 02/04/17 [History Last Taken Unknown] potassium chloride [Klor-Con M20] 20 meq PO BID 02/04/17 [History Last Taken Unknown] acetaminophen 1,000 mg PO Q8H PRN PRN tab 03/08/17 [Rx Last Taken Unknown] multivitamin 1 ea PO DAILY 09/04/20 [History Last Taken Unknown] aspirin 81 mg PO DAILY@0800 03/05/21 [History Last Taken Unknown] furosemide 20 mg PO DAILY 03/05/21 [History Last Taken Unknown] gabapentin 300 mg PO DAILY 03/05/21 [History Last Taken Unknown] metoprolol tartrate 12.5 mg PO BID 03/05/21 [History Last Taken Unknown] senna-docusate sodium 2 tab PO BID 03/05/21 [History Last Taken Unknown] trazodone 50 mg PO QHS 03/05/21 [History Last Taken Unknown] Allergy/AdvReac Type Severity Reaction Status Date / Time latex Allergy Swelling Verified 03/05/21 12:01 Family History Father Heart disease Mother Cancer Surgical History H/O: hysterectomy Hx of tonsillectomy Social History housing: long term Smoking Status: Never smoker alcohol intake: never substance use type: does not use Results Lab / Micro Data Result Diagrams: 03/05/21 11:48 03/05/21 11:48 Charges/Coding Addendum Addendum: Patient was seen and examined independently of Jeannette King today, she came to the ER after sustaining a fall at a [facility] facility, x-rays obtained in the emergency room showed a right hip fracture. I talked with orthopedic surgery today about her care, they requested a CT of her right hip to better delineate the fracture. I have ordered an echocardiogram for preop clearance. Patient is a full code. On examination she appeared older than her stated age, she appears confused. Vital signs as documented. Skin warm and dry and without overt rashes. Neck without JVD, thyroid appears normal, trachea is midline, neck is supple. Lungs clear, normal air movement was noted. Heart exam notable for regular rhythm, normal sounds, there was a 2/6 systolic murmur at the apex, no rubs or gallops were noted. Abdomen unremarkable and without evidence of organomegaly, masses, or abdominal aortic enlargement, bowel sounds are present in all 4 quadrants, no abdominal tenderness was noted. Extremities nonedematous, no cyanosis was noted, no clubbing was noted. Right hip was tender to palpation, right leg was not taken through range of motion due to her hip fracture. Neuro: Cranial nerves II through XII are grossly intact, no focal motor deficits were noted, sensation to light touch and pinprick is intact, motor exam 5/5 throughout. Psych: Patient is alert and confused. I have reviewed Jeannette King's history and physical including her medical assessment and plan of care and endorse it, patient appears stable for surgery at this time, EKG shows a sinus bradycardia with a right bundle branch block. Visit Charges Inpatient E&M: 76563 Init Hosp L3
--- NOTE | 2021-03-05 15:00 | CT_ITS ---
CT of the right hip without contrast INDICATION: Fall, hip pain, hip fracture. COMPARISON: X-ray earlier today TECHNIQUE: Multiple thin section axial CT images the right hip were obtained without the administration of intravenous contrast and filmed in soft tissue and bone windows. Furthermore, multiple sagittal and coronal reconstructions were performed. Dose limiting techniques were utilized. FINDINGS: No abnormal soft tissue mass, lymphadenopathy, fluid collection. Acute impacted fracture of the transcervical femoral neck. IMPRESSION: Acute impacted fracture the transcervical femoral neck. Electronically Signed: Antione Pinto MD at 17:04 EDT Tel , Service support , CT/Extremity Lower without Contra
--- NOTE | 2021-03-05 17:12 | ECHOD_ITS ---
Reason For Study: Preop Procedure This was a 2D Doppler, Color Flow transthoracic echocardiogram. Exam performed portable in patient room. Left Ventricle Normal LV size. Left ventricular systolic function is normal. The estimated ejection fraction is 60 %. Stage 1 diastolic dysfunction. No regional wall motion abnormalities noted. Right Ventricle Normal RV size. Normal systolic function. Atria Normal left atrium. Normal right atrium. Mitral Valve Normal mitral valve. Tricuspid Valve Normal tricuspid valve. Moderate (2+) tricuspid valve insufficiency. Pulmonary artery systolic pressure is 56 mmHg. Moderate pulmonary hypertension. Aortic Valve Trisinus/trileaflet aortic valve. Mild focal aortic valve calcification. Mild (1+) eccentric aortic valve insufficiency. Pulmonic Valve Normal pulmonic valve. Great Vessels Normal aortic root. The pulmonary artery is normal size. Normal inferior vena cava. Pericardium/Pleural Small pericardial effusion. MMode/2D Measurements & Calculations LVIDd: 4.3 cm IVSd: 0.90 cm Ao root diam: 3.2 cm LVIDs: 2.6 cm LVPWd: 0.91 cm RVDd: 4.1 cm FS: 39.6 % LAV(MOD-bp): 30.0 ml LVAd ap4: 16.2 cm2 SV(MOD-sp4): 24.5 ml LAV(MOD-bp) Indexed: 22.8 ml/m2 LVLd ap4: 5.8 cm LAV(MOD-sp2): 27.1 ml EDV(MOD-sp4): 36.7 ml LAV(MOD-sp4): 32.0 ml EDV(sp4-el): 38.4 ml LVAs ap4: 8.1 cm2 LVLs ap4: 4.4 cm ESV(MOD-sp4): 12.2 ml ESV(sp4-el): 12.5 ml EF(MOD-sp4): 66.8 % EF(sp4-el): 67.3 % SV(sp4-el): 25.8 ml LA A4 area: 14.4 cm2 LA dimension(2D): 4.5 cm RA A4 area: 9.2 cm2 Doppler Measurements & Calculations MV E max tejas: 61.9 cm/sec Lat Peak E' Tejas: 9.6 cm/sec Med Peak E' Tejas: 6.3 cm/sec MV A max tejas: 66.1 cm/sec E/E' lat: 6.4 E/E' med: 9.8 MV E/A: 0.94 Ao V2 max: 176.7 cm/sec AI max tejas: 362.3 cm/sec LV V1 max: 100.8 cm/sec Ao max P.5 mmHg AI max P.5 mmHg LV V1 max P.1 mmHg Ao V2 mean: 122.3 cm/sec Ao mean P.5 mmHg AI dec slope: 220.1 cm/sec2 Ao V2 VTI: 34.8 cm AI P1/2t: 482.1 msec PA V2 max: 104.4 cm/sec TR max tejas: 359.0 cm/sec TR max P.6 mmHg ECHO/Echo Complete Interpretation Summary Normal LV size. Left ventricular systolic function is normal. The estimated ejection fraction is 60 %. Stage 1 diastolic dysfunction. Mild (1+) eccentric aortic valve insufficiency. Pulmonary artery systolic pressure is 56 mmHg. Moderate pulmonary hypertension. Small pericardial effusion. Ordering Physician: Barrera Byers Referring Physician: Burak Sampson Chi Performed By: Kelly Neumann, CAIT, RVT
[2021-03-05] MEDS: 0.9% Normal Saline 1,000 ML 75 ML IV (17:33)
[2021-03-05] MEDS: 0.9% Saline Lock 10 ML Syringe IV (18:04)
--- NOTE | 2021-03-05 21:50 | PCS.PANDOC ---
PANDEMIC DOCUMENTATION INITIATED: Date: 02/06/2021 Time: 190
[2021-03-05] MEDS: Heparin Injection (Vial) 5,000 UNIT/ML VIAL 5000 UNIT SC (22:50)
[2021-03-05] MEDS: Donepezil HCl 10 MG Tablet PO (22:54)
[2021-03-05] MEDS: Memantine Hydrochloride 10 MG Tablet PO (22:54)
[2021-03-05] MEDS: traZODone 50 MG Tablet PO (22:54)
[2021-03-05] MEDS: Senna/Docusate Sodium 1 Tablet 2 TABLET PO (22:54)
[2021-03-05] MEDS: Metoprolol Tartrate 25 MG Tablet 12.5 MG PO (22:54)
--- NOTE | 2021-03-05 23:05 | PCS.PANDOC ---
PANDEMIC DOCUMENTATION INITIATED: Date: 03/05/2021 Time: 1900
[2021-03-06] VITALS (24 sets, daily range): BP systolic 67–125; BP diastolic 43–79; PULSE 66–128; RESP 16–18; TEMP 36.1–37.4; O2SAT 89–99; BMI 19.3
--- NOTE | 2021-03-06 | HIP_PTH ---
PATIENT: MARTHA MONSIVAIS LOC: MS3 U#:[id number] AGE/SX: 86/F ROOM: [facility] [place]05/[address]: Dr. Sweetie Caruso MD : [id number] BED: 1 DIS: 03/07/2021 SPEC #: [id number] RECD: 03/06/21 15:52 STATUS: DELANEY REQ #: [id number] TOÑO: 03/06/21 00:[address]: Carlos Song DEPT: SURGICAL PATHOLOGY RECD BY: Jonel Coleman ENTERED: 03/07/21 12:02 SP TYPE: TOTAL HIP OTHR DR: MD Dr. Barrera Mccabe, DO Dr. Mikal Moran, DO Dr. Burak Sampson MD Tissues: Hip, NOS Procedures: Decalcification bone/plaque Surgery Specimen Level IV Comments: @ Ordering doctor for DEC edited from to DR.MKNAPI Coleman by TRAVIS at 03/07/21 1406 @ Ordering doctor for SUIV edited from to @ by TRAVIS at 03/07/21 1406 @ Submitting doctor edited from to DR.MKNAPI Coleman by TRAVIS at 03/07/21 1406 HEADER OPERATION: Right hip hemiarthroplasty PRE-OP DIAGNOSIS: Closed intertrochanteric fracture of right hip TISSUE SUBMITTED: Right femoral head MICROSCOPIC DIAGNOSIS Right femoral head, fracture: Consistent with organizing fracture callous. AM:patrick 03/10/2021 MICROSCOPIC DESCRIPTION Slides are reviewed. GROSS DESCRIPTION Received is one container labeled with the patient's name and designated femoral head, right. The specimen consists of a odom femoral head measuring 4 x 4 x 4 cm. The articular surface is smooth. Portion of femoral neck measures 2 cm in length. Resection margin is irregular and hemorrhagic. Also present in the specimen container are multiple detached pieces of bone measuring in aggregate 3 x 3 x 1 cm. Also present in the container is a piece of soft tissue measuring 3 x 2 x 0.3 cm. Head Silverman sections are submitted in three cassettes as follows: 1 - soft tissue, 2??detached pieces of bone after decalcification, 3 - femoral head after decalcification. / KATT:patrick 03/07/21 TC:5 CPT: 60335, 30102
[2021-03-06 05:13] LABS: Absolute Lymphocyte Count 0.48 X10^3/uL (0.83-4.51); Absolute Neutrophil Count 7.4 X10^3/uL (2.0-7.7); Basophil# 0.02 X10^3/uL; Basophil% 0.2 % (0-1); Hematocrit 39.1 % (37-47); Hemoglobin 12.6 g/dL (12.0-15.0); Lymphocyte # 0.48 X10^3/ul (0.83-4.51); Lymphocyte % 5.6 % (19-41); Mean Corp Hgb Conc 32.2 g/dL (32-36); Mean Corpuscular Hgb 30.5 pg (27.0-32.0); Mean Corpuscular Volume 94.7 fL (81-99); Mean Platelet Vol. 10.8 fl (6.2-12.0); Monocyte% 8.1 % (0-10); NRBC Flagged by Analyzer 0 % (0-5); Neutrophil # 7.37 X10^3/uL (2.7-7.7); Neutrophil % 85.8 % (47-70); POSITIVE DIFFERENTIAL YES; Platelet Count 181 K/mm3 (150-450); RBC Distribution Width CV 14.4 % (11.6-14.6); RBC Distribution Width SD 50.3 fl (35.1-43.9); Red Blood Count 4.13 M/mm3 (4.2-5.4); White Blood Count 8.6 K/mm3 (4.4-11.0)
[2021-03-06] MEDS: Morphine 4 MG/ML Syringe IV ×2 (05:28→11:12)
[2021-03-06] MEDS: 0.9% Saline Lock 10 ML Syringe IV ×2 (05:28→08:15)
[2021-03-06 05:37] LABS: Differential Indicated SCAN CRITERIA MET
[2021-03-06 05:44] LABS: Anion Gap 5 (5-15); BUN 21 mg/dL (7-18); BUN/Creat Ratio 47.7 RATIO (10-20); Calcium,Total 8.7 mg/dL (8.5-10.1); Chloride 106 mmol/L (98-107); Creatinine, Serum 0.44 mg/dL (0.55-1.02); EST Glomerular Filtration Rate 145 mL/min (>60); Est Glom Filt Rate - Afr Amer 175 mL/min (>60); Estimated Creatinine Clearance 27.83 ml/min; Glucose 125 mg/dL (74-106); Sodium Level 139 mmol/L (136-145)
[2021-03-06 05:49] LABS: Partial Thromboplast Time 30.9 Seconds (24.1-36.2)
[2021-03-06] MEDS: Metoprolol Tartrate 25 MG Tablet 12.5 MG PO ×2 (08:18→22:51)
--- NOTE | 2021-03-06 11:10 | CASEMGMT ---
Addendum entered by Rafia Perez 03/06/21 17:14: Pt's son Barrera is present at [facility]. SW in to speak with Barrera. SW introduced self and role at [facility]. Barrera confirms pt can from [facility]. TEE informed Barrera that typically after a hip fracture, pts will need to return skilled to SNF. SW informed Barrera that [facility] is able to accept pt on Skilled side at discharge. Barrera confirms plan is for pt to return to [facility] skilled. TEE informed Barrera that pt could potentially discharge back to [facility] tomorrow if medically cleared. Barrera states understanding. Plan: Return to [facility] skilled when medically cleared Addendum entered by Rafia Perez 03/06/21 12:42: TEE received call from Roro in admissions at [facility]. Roro states pt was custodial resident, is able to return skilled. Roro states they will need a COVID test on day of discharge. Roro states she doesn't have HCPOA on file, states they have pt's son Barrera make medical decisions for pt. Original Note: Social Work Note TEE reviewed chart. Pt is listed as being from [facility]. TEE placed a call to [facility] and left message for Roro in admissions regarding pt. TEE also asked for [facility] to fax over HCPOA if they have it on file. TEE waiting for call back from [facility]. TEE Faxed updated clinicals to [facility]. Rafia Perez ROOM MANAGER, NEUROLOGY STROKE PHYSICIAN
[2021-03-06] MEDS: 0.9% Normal Saline 1,000 ML 75 ML IV ×2 (11:13→16:05)
--- NOTE | 2021-03-06 13:18 | CON.PCM.OR_ITS ---
HPI Consult Data Date of Consult: 03/06/21 HPI Narrative HPI Narrative: MARTHA MONSIVAIS, is a 86 F who presents to the emergency room on 03/05/2021 patient had a fall at the care home the [facility]. She has a significant history of dementia. As well as A. fib hypertension hyperlipidemia. Patient had A hip x-ray which revealed intratrochanteric femoral fracture. Dr. Moran was consulted. CT was also performed which revealed an acute impacted fracture at the transcervical femoral neck. [facility] Medical History (Updated 03/06/21 @ 13:24 by ELIANA Doan) Alzheimer disease Hyperlipidemia Hypertension Home Medications baclofen 10 mg PO QHS 02/04/17 [History Last Taken Unknown] potassium chloride [Klor-Con M20] 20 meq PO BID 02/04/17 [History Last Taken Unknown] acetaminophen 1,000 mg PO Q8H PRN PRN tab 03/08/17 [Rx Last Taken Unknown] multivitamin 1 ea PO DAILY 09/04/20 [History Last Taken Unknown] aspirin 81 mg PO DAILY@0800 03/05/21 [History Last Taken Unknown] furosemide 20 mg PO DAILY 03/05/21 [History Last Taken Unknown] gabapentin 300 mg PO DAILY 03/05/21 [History Last Taken Unknown] metoprolol tartrate 12.5 mg PO BID 03/05/21 [History Last Taken Unknown] senna-docusate sodium 2 tab PO BID 03/05/21 [History Last Taken Unknown] trazodone 50 mg PO QHS 03/05/21 [History Last Taken Unknown] Allergy/AdvReac Type Severity Reaction Status Date / Time latex Allergy Swelling Verified 03/05/21 12:01 Family History Father Heart disease Mother Cancer Surgical History H/O: hysterectomy Hx of tonsillectomy Social History housing: care home Smoking Status: Never smoker alcohol intake: never substance use type: does not use Vital Signs Vital Signs Vital Signs: 03/05/21 14:28 03/05/21 14:49 03/05/21 16:56 Temperature 97.9 F Temperature Source Temporal Pulse Rate 61 61 Pulse Strength Normal (2+) Respiratory Rate 18 18 Respiratory Effort Respiratory Depth Respiratory Pattern Blood Pressure 140/61 H 140/61 H Blood Pressure Mean 87 87 Blood Pressure Source Blood Pressure Position Blood Pressure Location Pulse Ox 96 97 Oxygen Delivery Method Room Air Oxygen Flow Rate (L/min) 03/05/21 17:45 03/05/21 17:54 03/05/21 20:45 Temperature 97.9 F Temperature Source Oral Pulse Rate 72 71 Pulse Strength Respiratory Rate 20 H Respiratory Effort Normal Respiratory Depth Normal Respiratory Pattern Normal Blood Pressure 136/80 H Blood Pressure Mean 98 Blood Pressure Source Monitor Blood Pressure Position Semi-Fowlers Blood Pressure Location Right Arm Pulse Ox 93 93 85 Oxygen Delivery Method Room Air Room Air Room Air Oxygen Flow Rate (L/min) 03/05/21 20:51 03/05/21 22:45 03/05/21 22:54 Temperature 98.4 F Temperature Source Oral Pulse Rate 67 67 Pulse Strength Respiratory Rate 20 H Respiratory Effort Respiratory Depth Respiratory Pattern Blood Pressure 121/61 H 121/61 H Blood Pressure Mean 81 Blood Pressure Source Monitor Blood Pressure Position Semi-Fowlers Blood Pressure Location Right Arm Pulse Ox 96 95 Oxygen Delivery Method Nasal Cannula Nasal Cannula Oxygen Flow Rate (L/min) 3 3 03/05/21 23:00 03/06/21 04:35 03/06/21 04:40 Temperature 99.3 F H Temperature Source Temporal Pulse Rate 71 Pulse Strength Respiratory Rate 18 Respiratory Effort Normal Non-Labored Normal Non-Labored Respiratory Depth Normal Normal Respiratory Pattern Normal Normal Blood Pressure 125/66 H Blood Pressure Mean 85 Blood Pressure Source Monitor Blood Pressure Position Semi-Fowlers Blood Pressure Location Right Arm Pulse Ox 93 98 98 Oxygen Delivery Method Room Air Nasal Cannula Nasal Cannula Oxygen Flow Rate (L/min) 3 03/06/21 07:55 03/06/21 07:56 03/06/21 08:18 Temperature 98.6 F Temperature Source Oral Pulse Rate 66 66 Pulse Strength Respiratory Rate 16 Respiratory Effort Normal Non-Labored Respiratory Depth Shallow Respiratory Pattern Blood Pressure 106/79 Blood Pressure Mean 88 Blood Pressure Source Monitor Blood Pressure Position Semi-Fowlers Blood Pressure Location Right Arm Pulse Ox 97 Oxygen Delivery Method Nasal Cannula Oxygen Flow Rate (L/min) 2 03/06/21 11:08 Temperature 98.1 F Temperature Source Oral Pulse Rate 71 Pulse Strength Respiratory Rate 16 Respiratory Effort Respiratory Depth Respiratory Pattern Blood Pressure 118/61 Blood Pressure Mean 80 Blood Pressure Source Monitor Blood Pressure Position Supine Blood Pressure Location Right Arm Pulse Ox 93 Oxygen Delivery Method Nasal Cannula Oxygen Flow Rate (L/min) 2 Weight Weight: 42.1 kg Body Mass Index (BMI) 19.3 Physical Exam Narrative Patient is demented female complaining of hip pain. Patient has positive DP PT pulses Skin without significant abrasions or lacerations Sensation intact to lower extremity Skin is cool to touch Calf without erythema edema negative Homans. Pain with any movement passive of the hip. Lab / Micro Data Result Diagrams: 03/06/21 04:50 03/06/21 04:50 Labs: Laboratory Results - last 24 hr 03/06/21 04:50: WBC 8.6, RBC 4.13 L, Hgb 12.6, Hct 39.1, MCV 94.7, MCH 30.5, MCHC 32.2, RDW Std Deviation 50.3 H, RDW Coeff of Jasmin 14.4, Plt Count 181, MPV 10.8, Immature Gran % (Auto) 0.300, Neut % (Auto) 85.8 H, Lymph % (Auto) 5.6 L, [place] % (Auto) 8.1, Eos % (Auto) 0.0, Baso % (Auto) 0.2, Absolute Neuts (auto) 7.4, Absolute Lymphs (auto) 0.48 L, Nucleated RBC % 0 03/06/21 04:50: APTT 30.9 03/06/21 04:50: Sodium 139, Potassium 4.0, Chloride 106, Carbon Dioxide 28.0, Anion Gap 5, BUN 21 H, Creatinine 0.44 L, Estim Creat Clear Calc 27.83, Est GFR (MDRD) Af Amer 175, Est GFR (MDRD) Non-Af 145, BUN/Creatinine Ratio 47.7 H, Glucose 125 H, Calcium 8.7 03/06/21 04:50: Blood Type O NEGATIVE, Antibody Screen NEGATIVE Micro: Microbiology 03/05/21 12:52 Nasal Secretion SARS-CoV-2 Antigen (Rapid) - Final Radiology Impression Brain CT 03/05/21 12:19 IMPRESSION: 1. No acute abnormality. 2. Skull base demineralization, see above for discussion. Electronically Signed: Marycarmen Carroll MD at 14:40 EDT Tel , Service support , Cervical Spine CT 03/05/21 12:19 IMPRESSION: 1. No acute injury. 2. Decreased mineralization, osteoporosis, possibility of separate superimposed disease such as multiple myeloma is present. Laboratory assessment advised. Electronically Signed: Marycarmen Carroll MD at 14:41 EDT Tel , Service support , Hip/Pelvis X-Ray 03/05/21 12:49 IMPRESSION: 1. Right basicervical femoral fracture. 2. Limited assessment of pelvis, refer to CT to evaluate for pelvic fractures. Electronically Signed: Marycarmen Carroll MD at 14:59 EDT Tel , Service support , Chest X-Ray 03/05/21 13:30 IMPRESSION: No acute abnormality. Moderate cardiomegaly. Electronically Signed: Marycarmen Carroll MD at 14:55 EDT Tel , Service support , Lower Extremity CT 03/05/21 15:00 Echocardiogram 03/05/21 17:12 Interpretation Summary Normal LV size. Left ventricular systolic function is normal. The estimated ejection fraction is 60 %. Stage 1 diastolic dysfunction. Mild (1+) eccentric aortic valve insufficiency. Pulmonary artery systolic pressure is 56 mmHg. Moderate pulmonary hypertension. Small pericardial effusion. Ordering Physician: Barrera Byers Referring Physician: Burak Sampson Chi Performed By: Kelly Neumann, RDCS, RVT Assessment & Plan Assessment/Plan (1) Closed intertrochanteric fracture of right hip: QUALIFIERS: Encounter type: initial encounter Fracture alignment: displaced Qualified Code(s): S72.141A - Displaced intertrochanteric fracture of right femur, initial encounter for closed fracture PLAN: Patient was reviewed evaluated with Dr. Moran and Dr. Song patient will undergo a right hemiarthroplasty for hip fracture patient will return to floor postoperatively patient likely to be full weightbearing postoperatively aspirin 81 mg twice daily x4 weeks for DVT prophylaxis. RADHA becerril and SCDs CBC and BMP post operatively Further recs pending OR
--- NOTE | 2021-03-06 13:32 | PN.HOSP_ITS ---
Documented by User: Jeannette King PATIENT APPOINTMENT COORDINATOR, PATIENT APPOINTMENT COORDINATOR-C 03/06/21 13:37 Subjective Subjective Patient seen and examined. Appears resting comfortably in bed. Confused which is patient's baseline. Plan for OR today per orthopedics. Objective Data Objective Data Vital Signs: Vital Signs Temp Pulse Resp BP Pulse Ox 98.1 F 71 16 118/61 93 03/06/21 11:08 03/06/21 11:08 03/06/21 11:08 03/06/21 11:08 03/06/21 11:08 Oxygen Flow Rate (L/min) 2 Oxygen Delivery Method Nasal Cannula Weight: 92 lb 13.034 oz Body Mass Index (BMI) 19.3 Intake & Output: Intake and Output for Last 24 Hours 03/04/21 03/05/21 03/06/21 23:59 23:59 23:59 Intake Total 1080 / 1080 Output Total 200 / 200 Balance 880 / 880 Lab / Micro Data Result Diagrams: 03/06/21 04:50 03/06/21 04:50 Labs: Laboratory Results - last 24 hr 03/06/21 04:50: WBC 8.6, RBC 4.13 L, Hgb 12.6, Hct 39.1, MCV 94.7, MCH 30.5, M CHC 32.2, RDW Std Deviation 50.3 H, RDW Coeff of Jasmin 14.4, Plt Count 181, MPV 10.8, Immature Gran % (Auto) 0.300, Neut % (Auto) 85.8 H, Lymph % (Auto) 5.6 L, [place] % (Auto) 8.1, Eos % (Auto) 0.0, Baso % (Auto) 0.2, Absolute Neuts (auto) 7.4, Absolute Lymphs (auto) 0.48 L, Nucleated RBC % 0 03/06/21 04:50: APTT 30.9 03/06/21 04:50: Sodium 139, Potassium 4.0, Chloride 106, Carbon Dioxide 28.0, Anion Gap 5, BUN 21 H, Creatinine 0.44 L, Estim Creat Clear Calc 27.83, Est GFR (MDRD) Af Amer 175, Est GFR (MDRD) Non-Af 145, BUN/Creatinine Ratio 47.7 H, Glucose 125 H, Calcium 8.7 03/06/21 04:50: Blood Type O NEGATIVE, Antibody Screen NEGATIVE Micro: Microbiology 03/05/21 12:52 Nasal Secretion SARS-CoV-2 Antigen (Rapid) - Final Radiography Diagnostic Testing: Radiology Impression Brain CT 03/05/21 12:19 IMPRESSION: 1. No acute abnormality. 2. Skull base demineralization, see above for discussion. Electronically Signed: Marycarmen Carroll MD at 14:40 EDT Tel , Service support , Cervical Spine CT 03/05/21 12:19 IMPRESSION: 1. No acute injury. 2. Decreased mineralization, osteoporosis, possibility of separate superimposed disease such as multiple myeloma is present. Laboratory assessment advised. Electronically Signed: Marycarmen Carroll MD at 14:41 EDT Tel , Service support , Hip/Pelvis X-Ray 03/05/21 12:49 IMPRESSION: 1. Right basicervical femoral fracture. 2. Limited assessment of pelvis, refer to CT to evaluate for pelvic fractures. Electronically Signed: Marycarmen Carroll MD at 14:59 EDT Tel , Service support , Chest X-Ray 03/05/21 13:30 IMPRESSION: No acute abnormality. Moderate cardiomegaly. Electronically Signed: Marycarmen Carroll MD at 14:55 EDT Tel , Service support , Lower Extremity CT 03/05/21 15:00 Echocardiogram 03/05/21 17:12 Interpretation Summary Normal LV size. Left ventricular systolic function is normal. The estimated ejection fraction is 60 %. Stage 1 diastolic dysfunction. Mild (1+) eccentric aortic valve insufficiency. Pulmonary artery systolic pressure is 56 mmHg. Moderate pulmonary hypertension. Small pericardial effusion. Ordering Physician: Barrera Byers Referring Physician: Burak Sampson Chi Performed By: Kelly Neumann, CAIT, RVT Physical Exam Const alert and no apparent distress Orientation / Consciousness: confused Nutritional Appearance: cachectic HEENT normocephalic and moist oral mucous membranes Eyes PERRL, EOMs intact bilaterally and conjunctivae normal Neck no lymphadenopathy Resp normal respiratory effort and clear to auscultation bilaterally Cardio regular rate, regular rhythm and no murmurs Peripheral Pulses: pulses 2+ throughout GI normal to inspection, nondistended, normoactive bowel sounds, non-tender and non-distended Extremity normal to inspection Skin no rashes or lesions noted Lesions: no lesions Rashes: no rashes Trauma: no lacerations or abrasions Neuro CN's II-XII intact bilaterally, no focal motor deficits, no sensory deficits noted and deep tendon reflexes 2+ bilaterally Psych mental status grossly normal and affect normal Assessment & Plan Assessment/Plan (1) Closed intertrochanteric fracture of right hip: QUALIFIERS: Encounter type: initial encounter Fracture alignment: displaced Qualified Code(s): S72.141A - Displaced intertrochanteric fracture of right femur, initial encounter for closed fracture PLAN: 1. Acute traumatic right hip fracture-orthopedic medicine consulted. PT/OT. As needed pain regimen. Resides at SNF. Preoperative echocardiogram demonstrates an EF of 60%, stage I diastolic dysfunction, moderate pulmonary hypertension with pulmonary artery systolic pressure 56 mmHg, small pericardial effusion. Plan for right hemiarthroplasty this afternoon. 2. History of chronic back pain with history of compression fractures-on baclofen nightly. PRN Tylenol. PT/OT. 3. Paroxysmal atrial fibrillation-on metoprolol. Not on oral anticoagulation. 4. Hypertension-not on regimen, monitor blood pressure. 5. Hyperlipidemia-not on agent. 6. Alzheimer's dementia, unclear behavioral disturbance history-on memantine, donepezil. 7. Severe protein calorie malnutrition-as evidenced by cachectic appearance, low BMI, evidence of muscle and fat loss. Nutrition consult. DVT prophylaxis-aspirin twice daily per Ortho recommendations. This patient was seen by FLORESITA Gillespie under the supervision of Dr. Byers. Documented by User: Dr. Barrera Byers, 03/06/21 19:49 Objective Data Lab / Micro Data Result Diagrams: 03/06/21 04:50 03/06/21 04:50 Charges/Coding Addendum Addendum: Patient was seen and examined today independently of Jeannette King, she underwent repair of her right hip today and had a hemiarthroplasty done. Postop patient's blood pressure was low in recovery, she also went into atrial fib during her surgery, I placed her on IV digoxin with some slowing of her rate. I believe this probably will have to be continued to assure rate control. I think it would be hazardous to place the patient on full anticoagulation due to her dementia. On examination she appeared older than her stated age, she appears confused,, she does not appear to be in any distress. Vital signs as documented. Skin warm and dry and without overt rashes. Neck without JVD, thyroid appears normal, trachea is midline, neck is supple. Lungs clear, normal air movement was noted. Heart exam notable for irregular rhythm, normal sounds and absence of murmurs, rubs or gallops. Abdomen unremarkable and without evidence of organomegaly, masses, or abdominal aortic enlargement, bowel sounds are present in all 4 quadrants, no abdominal tenderness was noted. Extremities nonedematous, no cyanosis was noted, no clubbing was noted. Neuro: Cranial nerves II through XII are grossly intact, no focal motor deficits were noted, sensation to light touch and pinprick is intact, motor exam 5/5 throughout. Psych: Patient is alert, she is confused and complains of right hip discomfort Again, patient will be given an additional dose of digoxin tonight IV, she will be placed on digoxin 0.125 mg daily orally starting tomorrow. I increase the patient's IV rate 200 cc/h, we will observe her blood pressure. Patient is now on telemetry. I have reviewed Jeannette King's progress note including her medical assessment and plan of care and endorse it. Visit Charges Inpatient E&M: 68038 Subs Hosp L2
--- NOTE | 2021-03-06 15:55 | EKG12_ITS ---
Test Reason : POST OP Blood Pressure : / mmHG Vent. Rate : 119 BPM Atrial Rate : 117 BPM P-R Int : 000 ms QRS Dur : 116 ms QT Int : 360 ms P-R-T Axes : 000 037 -22 degrees QTc Int : 506 ms Atrial fibrillation Right bundle branch block Abnormal ECG Confirmed by CHARLY MARIA, ABDON ([id number]), social media editor SKYLAR MARTINEZ ([id number]) on 03/10/2021 7:09:09 AM Referred By: EDENILSON Confirmed By:ABDON PARKS MD
[2021-03-06] MEDS: Digoxin 250 MCG/ML Ampul 500 MCG IV (16:17)
--- NOTE | 2021-03-06 17:29 | SUR.PHASEI ---
ARRIVED TO PACU IN AFIB, RATE 115-140, HYPOTENSIVE, REQUIRING O2. DR PYLE, ANESTHESIA, CONFERRED WITH DR LANDIN, WHO ORDERED 500 ML IVF BOLUS, 500 MCG IV DIGOXIN, EKG. THERE HAS BEEN MINIMAL IMPROVEMENT, BP LABILE AT TIMES. ON 3 L/MIN O2 PER SIMPLE MASK. MOANS AND BABBLES UNINTELLIGBLY, LESS FREQUENTLY THAN ON ARRIVAL, RESTS QUIETLY AT INTERVALS. DOES NOT FOLLOW COMMANDS, DOES NOT ANSWER QUESTIONS MEANINGFULLY, DOES NOT TOLERATE ANY PHYSICAL CARE, YELLS AND RESISTS. DR LANDIN UPDATED AT 1727, INSTRUCTS BUSINESS OFFICE REPRESENTATIVE TO INCREASE IVF TO 100 ML/HR, TRANSFER BACK TO FLOOR WHERE HE WILL RESUME CARE.
[2021-03-06] MEDS: 0.9% Normal Saline 1,000 ML 100 ML IV (19:42)
[2021-03-06] MEDS: Digoxin 250 MCG/ML Ampul 125 MCG IV (20:39)
[2021-03-06] MEDS: traZODone 50 MG Tablet PO (22:51)
[2021-03-06] MEDS: Memantine Hydrochloride 10 MG Tablet PO (22:51)
[2021-03-06] MEDS: Senna/Docusate Sodium 1 Tablet 2 TABLET PO (22:52)
[2021-03-06] MEDS: Donepezil HCl 10 MG Tablet PO (22:52)
[2021-03-07] VITALS (8 sets, daily range): BP systolic 91–125; BP diastolic 47–58; PULSE 59–90; RESP 16–18; TEMP 36.5–37.1; O2SAT 94–100
[2021-03-07] MEDS: Acetaminophen 325 MG Tablet 650 MG PO ×2 (06:04→14:41)
[2021-03-07] MEDS: Heparin Injection (Vial) 5,000 UNIT/ML VIAL 5000 UNIT SC ×2 (06:08→14:35)
[2021-03-07 06:22] LABS: Basophil# 0.02 X10^3/uL; Basophil% 0.2 % (0-1); Hematocrit 32.9 % (37-47); Mean Corp Hgb Conc 30.4 g/dL (32-36); Mean Corpuscular Hgb 30.2 pg (27.0-32.0); Mean Corpuscular Volume 99.4 fL (81-99); Mean Platelet Vol. 11.1 fl (6.2-12.0); Monocyte# 0.68 X10^3/uL; Monocyte% 6.8 % (0-10); NRBC Flagged by Analyzer 0 % (0-5); Neutrophil # 8.96 X10^3/uL (2.7-7.7); Neutrophil % 89.5 % (47-70); POSITIVE DIFFERENTIAL YES; Platelet Count 144 K/mm3 (150-450); RBC Distribution Width CV 14.4 % (11.6-14.6); RBC Distribution Width SD 52.1 fl (35.1-43.9); Red Blood Count 3.31 M/mm3 (4.2-5.4)
[2021-03-07 06:28] LABS: Differential Indicated SCAN CRITERIA MET
[2021-03-07 06:38] LABS: Differential Comment SCANNED
[2021-03-07 06:49] LABS: Anion Gap 6 (5-15); BUN 17 mg/dL (7-18); BUN/Creat Ratio 34.2 RATIO (10-20); Calcium,Total 8.6 mg/dL (8.5-10.1); Chloride 114 mmol/L (98-107); EST Glomerular Filtration Rate 126 mL/min (>60); Est Glom Filt Rate - Afr Amer 152 mL/min (>60); Estimated Creatinine Clearance 27.83 ml/min; Glucose 128 mg/dL (74-106); Potassium 3.7 mmol/L (3.5-5.1); Sodium Level 145 mmol/L (136-145)
[2021-03-07] MEDS: Senna/Docusate Sodium 1 Tablet 2 TABLET PO (08:25)
[2021-03-07] MEDS: Memantine Hydrochloride 10 MG Tablet PO (08:26)
[2021-03-07] MEDS: Potassium Chloride Oral Tablet 20 MEQ PO (08:26)
[2021-03-07] MEDS: Aspirin 81 MG TAB.CHEW PO (08:26)
[2021-03-07] MEDS: Cholecalciferol (VIT D3) 25 MCG TABLET (1,000 UNITS) PO (08:26)
--- NOTE | 2021-03-07 09:25 | RAD_ITS ---
STUDY: X-RAY - PELVIS AND RIGHT HIP REASON FOR EXAM: Female, 86 years old. post op right hemiarthroplasty -- portable TECHNIQUE: 2 views of the pelvis and hip. COMPARISON: 03/05/2021. FINDINGS: Status post right hip arthroplasty. Surgical hardware intact/well aligned. No acute complications. Postoperative soft tissues with staple line. Osteopenia/osteoporosis. RAD/Hip Min 2 Views (Portable) IMPRESSION: Uncomplicated right hip arthroplasty Electronically Signed: Ernesto Villalobos DO at 10:27 EDT Tel , Service support ,
--- NOTE | 2021-03-07 11:18 | PCM.PN.HOSP ---
Subjective Subjective Patient seen and examined. Drowsy this morning, borderline low blood pressure. Converted to sinus rhythm overnight. Appears resting comfortably in bed. Therapy attempting to work with patient. Objective Data Objective Data Vital Signs: Vital Signs Temp Pulse Resp BP Pulse Ox 98.3 F 62 16 97/50 L 94 03/07/21 09:55 03/07/21 09:55 03/07/21 09:55 03/07/21 09:55 03/07/21 09:55 Oxygen Flow Rate (L/min) 2 Oxygen Delivery Method Nasal Cannula Weight: 92 lb 13.034 oz Body Mass Index (BMI) 19.3 Intake & Output: Intake and Output for Last 24 Hours 03/05/21 03/06/21 03/07/21 23:59 23:59 23:59 Intake Total 2375.83 / 2450.83 200 / 200 Output Total 200 / 350 350 / 350 Balance 2175.83 / 2100.83 -150 / -150 Lab / Micro Data Result Diagrams: 03/07/21 05:50 03/07/21 05:50 Labs: Laboratory Results - last 24 hr 03/07/21 05:50: WBC 10.0, RBC 3.31 L, Hgb 10.0 L, Hct 32.9 L, MCV 99.4 H, MCH 30.2, MCHC 30.4 L D, RDW Std Deviation 52.1 H, RDW Coeff of Jasmin 14.4, Plt Count 144 L, MPV 11.1, Immature Gran % (Auto) 0.500, Neut % (Auto) 89.5 H, Lymph % (Auto) 3.0 L, [place] % (Auto) 6.8, Eos % (Auto) 0.0, Baso % (Auto) 0.2, Absolute Neuts (auto) 9.0 H, Absolute Lymphs (auto) 0.30 L, Nucleated RBC % 0, Differential Comment SCANNED 03/07/21 05:50: Sodium 145, Potassium 3.7, Chloride 114 H, Carbon Dioxide 25.0, Anion Gap 6, BUN 17, Creatinine 0.50 L, Estim Creat Clear Calc 27.83, Est GFR (MDRD) Af Amer 152, Est GFR (MDRD) Non-Af 126, BUN/Creatinine Ratio 34.2 H, Glucose 128 H, Calcium 8.6 Micro: Microbiology 03/05/21 12:52 Nasal Secretion SARS-CoV-2 Antigen (Rapid) - Final Radiography Diagnostic Testing: Radiology Impression Hip X-Ray 03/07/21 09:25 IMPRESSION: Uncomplicated right hip arthroplasty Electronically Signed: Ernesto SanchezDO josé antonio at 10:27 EDT Tel , Service support , Physical Exam Const no apparent distress Orientation / Consciousness: other Other Details: drowsy Nutritional Appearance: cachectic HEENT normocephalic Mouth: dry mucous membranes Eyes PERRL, EOMs intact bilaterally and conjunctivae normal Neck no lymphadenopathy Resp normal respiratory effort and clear to auscultation bilaterally Cardio regular rate, regular rhythm and no murmurs Peripheral Pulses: pulses 2+ throughout GI normal to inspection, nondistended, normoactive bowel sounds, non-tender and non-distended Extremity normal to inspection Skin no rashes or lesions noted Lesions: no lesions Rashes: no rashes Trauma: no lacerations or abrasions Neuro CN's II-XII intact bilaterally, no focal motor deficits, no sensory deficits noted and deep tendon reflexes 2+ bilaterally Psych mental status grossly normal and affect normal Assessment & Plan Assessment/Plan (1) Closed intertrochanteric fracture of right hip: QUALIFIERS: Encounter type: initial encounter Fracture alignment: displaced Qualified Code(s): S72.141A - Displaced intertrochanteric fracture of right femur, initial encounter for closed fracture PLAN: 1. Acute traumatic right hip fracture status post cemented hemiarthroplasty right hip 03/06/[address] Song- orthopedic medicine following. PT/OT. As needed pain regimen. Resides at SNF. Likely return to SNF 03/08/2021 if patient remains stable. 2. Postoperative atrial fibrillation with RVR, underlying paroxysmal atrial fibrillation-on metoprolol at baseline. Initiated on digoxin, patient converted to sinus rhythm overnight. Preoperative echocardiogram demonstrates an EF of 60%, stage I diastolic dysfunction, moderate pulmonary hypertension with pulmonary artery systolic pressure 56 mmHg, small pericardial effusion. Do not feel patient is a candidate for anticoagulation due to significant dementia with history of falls. Will discuss with family. 3. History of chronic back pain with history of compression fractures-on baclofen nightly. PRN Tylenol. PT/OT. 4. Severe protein calorie malnutrition-as evidenced by cachectic appearance, low BMI, evidence of muscle and fat loss. Nutrition consult. 5. Hypertension-on metoprolol. Blood pressure borderline low, will hold parameters in place. 6. Hyperlipidemia-not on agent. 7. Alzheimer's dementia, unclear behavioral disturbance history-on memantine, donepezil. DVT prophylaxis-Heparin subcu, aspirin 81 mg twice a day for 4 weeks per Ortho recommendations This patient was seen by FLORESITA Gillespie under the supervision of Dr. Caruso.
--- NOTE | 2021-03-07 11:37 | PCM.PN.ORT ---
Subjective Subjective Patient is status post right hemiarthroplasty secondary to acute closed intertrochanteric fracture of the right hip. She sustained a fall on 03/05/2021 from the [facility] where she resides. She has a history of dementia. X-rays obtained this morning of right hip revealing a stable hardware from right hip arthroplasty. Patient is pleasantly comfortably resting in bed. Does have some mild hip pain though difficult to examine. Objective Data Objective Data Vital Signs: Vital Signs Temp Pulse Resp BP Pulse Ox 98.3 F 62 16 97/50 L 94 03/07/21 09:55 03/07/21 09:55 03/07/21 09:55 03/07/21 09:55 03/07/21 09:55 Oxygen Flow Rate (L/min) 2 Oxygen Delivery Method Nasal Cannula Weight: 42.1 kg Body Mass Index (BMI) 19.3 Intake & Output: Intake and Output for Last 24 Hours 03/05/21 03/06/21 03/07/21 23:59 23:59 23:59 Intake Total 2375.83 / 2450.83 200 / 200 Output Total 200 / 350 350 / 350 Balance 2175.83 / 2100.83 -150 / -150 Lab / Micro Data Result Diagrams: 03/07/21 05:50 03/07/21 05:50 Labs: Laboratory Results - last 24 hr 03/07/21 05:50: WBC 10.0, RBC 3.31 L, Hgb 10.0 L, Hct 32.9 L, MCV 99.4 H, MCH 30.2, MCHC 30.4 L D, RDW Std Deviation 52.1 H, RDW Coeff of Jasmin 14.4, Plt Count 144 L, MPV 11.1, Immature Gran % (Auto) 0.500, Neut % (Auto) 89.5 H, Lymph % (Auto) 3.0 L, [place] % (Auto) 6.8, Eos % (Auto) 0.0, Baso % (Auto) 0.2, Absolute Neuts (auto) 9.0 H, Absolute Lymphs (auto) 0.30 L, Nucleated RBC % 0, Differential Comment SCANNED 03/07/21 05:50: Sodium 145, Potassium 3.7, Chloride 114 H, Carbon Dioxide 25.0, Anion Gap 6, BUN 17, Creatinine 0.50 L, Estim Creat Clear Calc 27.83, Est GFR (MDRD) Af Amer 152, Est GFR (MDRD) Non-Af 126, BUN/Creatinine Ratio 34.2 H, Glucose 128 H, Calcium 8.6 Micro: Microbiology 03/05/21 12:52 Nasal Secretion SARS-CoV-2 Antigen (Rapid) - Final Radiography Diagnostic Testing: Radiology Impression Hip X-Ray 03/07/21 09:25 IMPRESSION: Uncomplicated right hip arthroplasty Electronically Signed: Ernesto Wilfredo, at 10:27 EDT Tel , Service support , Physical Exam Narrative Patient resting comfortably in bed No signs of acute distress Satting well on room air Limb is warm to touch, Sensation intact throughout entire lower extremity, including saphenous, sural, superficial and deep peroneal, and tibial distribution. DP/PT pulses bounding. Dressing clean dry intact. Calf nontender to palpation, no erythema, no edema. Negative Homans Assessment & Plan Assessment/Plan (1) Closed intertrochanteric fracture of right hip: QUALIFIERS: Encounter type: initial encounter Fracture alignment: displaced Qualified Code(s): S72.141A - Displaced intertrochanteric fracture of right femur, initial encounter for closed fracture (2) S/P hip hemiarthroplasty: PLAN: 1. Recommend pain control with Tylenol as needed 2. Patient is restricted in active AB duction x6 weeks 3. Recommend patient be on Lovenox postoperatively for DVT prophylaxis. Can transition to Xarelto when discharged. Patient should remain on postoperative DVT prophylaxis x4 weeks. 4. continue PT OT as tolerated. Patient weightbearing as tolerated with restriction of no abduction x6 weeks. 5. Patient is stable from orthopedic standpoint will sign off at this time. Discharge per primary team. 6. Please have patient follow-up in office in 2 weeks with either Margarito Ge PA-C, Bere Barnes PA-C or Dr. Song
--- NOTE | 2021-03-07 12:13 | CASEMGMT ---
Social Work Note SW received call from Roro in admissions requesting update. TEE placed a call to Roro. Pt to likely discharge back to [facility] tomorrow. TEE faxed updated clinicals to [facility]. Plan: [facility] when medically cleared Rafia Perez ELECTRICAL PROJECT MANAGER, REGULATORY ADMINISTRATOR
--- NOTE | 2021-03-07 14:33 | CASEMGMT ---
Pt screened with [facility] Palliative Care Screening Tool due to strata 3, pt met criteria. Order received. TC to [facility]. Left message on voicemail regarding referral. Faxed info at this time.
[2021-03-07] MEDS: 0.9% Saline Lock 10 ML Syringe IV (14:39)
--- NOTE | 2021-03-07 14:40 | PCM.PN.HOSP ---
Objective Data Objective Data Vital Signs: Vital Signs Temp Pulse Resp BP Pulse Ox 98.8 F 90 16 101/47 L 99 03/07/21 11:43 03/07/21 13:00 03/07/21 11:43 03/07/21 11:43 03/07/21 11:43 Oxygen Flow Rate (L/min) 2 Oxygen Delivery Method Nasal Cannula Weight: 42.1 kg Body Mass Index (BMI) 19.3 Intake & Output: Intake and Output for Last 24 Hours 03/05/21 03/06/21 03/07/21 23:59 23:59 23:59 Intake Total 2375.83 / 2450.83 400 / 400 Output Total 200 / 350 550 / 550 Balance 2175.83 / 2100.83 -150 / -150 Lab / Micro Data Result Diagrams: 03/07/21 05:50 03/07/21 05:50 Labs: Laboratory Results - last 24 hr 03/07/21 05:50: WBC 10.0, RBC 3.31 L, Hgb 10.0 L, Hct 32.9 L, MCV 99.4 H, MCH 30.2, MCHC 30.4 L D, RDW Std Deviation 52.1 H, RDW Coeff of Jasmin 14.4, Plt Count 144 L, MPV 11.1, Immature Gran % (Auto) 0.500, Neut % (Auto) 89.5 H, Lymph % (Auto) 3.0 L, [place] % (Auto) 6.8, Eos % (Auto) 0.0, Baso % (Auto) 0.2, Absolute Neuts (auto) 9.0 H, Absolute Lymphs (auto) 0.30 L, Nucleated RBC % 0, Differential Comment SCANNED 03/07/21 05:50: Sodium 145, Potassium 3.7, Chloride 114 H, Carbon Dioxide 25.0, Anion Gap 6, BUN 17, Creatinine 0.50 L, Estim Creat Clear Calc 27.83, Est GFR (MDRD) Af Amer 152, Est GFR (MDRD) Non-Af 126, BUN/Creatinine Ratio 34.2 H, Glucose 128 H, Calcium 8.6 Micro: Microbiology 03/05/21 12:52 Nasal Secretion SARS-CoV-2 Antigen (Rapid) - Final Radiography Diagnostic Testing: Radiology Impression Hip X-Ray 03/07/21 09:25 IMPRESSION: Uncomplicated right hip arthroplasty Electronically Signed: Ernesto Villalobos DO at 10:27 EDT Tel , Service support ,
[2021-03-07] MEDS: 0.9% Normal Saline 1,000 ML 100 ML IV (14:45)
--- NOTE | 2021-03-07 14:55 | TREXTCAR_ITS ---
Diet 03/07/21 07:20 Diet: Regular - General Is pt able to select menu?: No Routine Orders/Code Status Enema Type: Fleetz Enema Frequency: Daily PRN Suppository Type: Dulcolax 10mg Suppository Frequency: Daily PRN O2 Liters per Minute: 2 O2 Frequency: Continuous Keep PO Greater than or Equal to (%): 90 Routine Lab Work: - (Weekly CBC, BMP) Wound(s) RIGHT HIP: Wound Type: Surgical Incision Suggestions for Active Care Change Position every (hours): 2 Times a day to sit in chair: 3 Therapies Weight Bearing: Weight bearing as tolerated Physical Therapy: Eval and Treat Occupational Therapy: Eval and Treat Problem/Diagnosis (1) Closed intertrochanteric fracture of right hip: Status: Acute (2) S/P hip hemiarthroplasty: Status: Acute Allergies/Procedures Done in Hospital Allergies latex Allergy (Verified 03/05/21 12:01) Swelling Procedures: 2-D Echocardiogram Type of Care/Length of Stay Estimated LOS: More Than 30 Days Type of Care Needed: Skilled Rehab Potential: Fair Prognosis: Fair Additional Orders/Day of Discharge Additional Orders: Palliative Care H&P will serve as current which was dated: 03/05/21 Day of Discharge: 03/07/21 Dietary and Speech Recommendations Dietitian Recommendations/Changes: Resume regular diet and ensure enlive w/ medpass post-op. Adjust/add ONS as needed to optimize intake at meals. Discharge Plan Admission Admit Date/Time: 03/05/21 15:00 Primary Reason for Your Visit: Right hip fracture Attending Provider: Sweetie Caruso Primary Care Provider: Burak Sampson Chi Consulting Providers: Mikal Moran Instructions Additional Instructions / Restrictions: Weightbearing as tolerated, no abduction for 6 weeks. Discharge Orders/Prescriptions Prescriptions: New Xarelto 10 mg Tablet 10 mg PO DINNER 14 Days Qty: 14 RF: 0 oxycodone 5 mg Tablet 5 mg PO Q4H PRN PRN (Reason: Pain Score 4-5) 2 Days Qty: 5 RF: 0 Continued potassium chloride [Klor-Con M20] 20 MEQ tablet,ER particles/crystals 20 meq PO BID RF: 0 acetaminophen 500 MG tablet 1,000 mg PO Q8H PRN PRN (Reason: Mild Pain (1-3/10)) RF: 0 multivitamin 1 EACH tablet 1 ea PO DAILY RF: 0 trazodone 50 mg tablet 50 mg PO QHS RF: 0 gabapentin 300 mg capsule 300 mg PO DAILY RF: 0 furosemide 20 mg tablet 20 mg PO DAILY RF: 0 senna-docusate sodium Tablet 2 tab PO BID RF: 0 metoprolol tartrate 25 MG tablet 12.5 mg PO BID RF: 0 Held aspirin 81 MG tablet,chewable 81 mg PO DAILY@0800 RF: 0 Hold Instructions: Resume on 03/22/21. Hold while on Xarelto Discontinued baclofen 10 MG tablet 10 mg PO QHS RF: 0 Hold Instructions: Resume on 03/22/21. Hold while on xarelto Referrals / Follow Up: Carlos Song DO [STAFF PHYSICIAN] - Within 2 Weeks Burak Sampson Chi, MD [Primary Care Provider] - In 1 Week Disposition Disposition (needs filled in before D/C Order can be placed[facility]
--- NOTE | 2021-03-07 14:59 | CASEMGMT ---
Social Work Note Pt to be discharged back to [facility] today skilled. SW placed a call to [facility] and left message for Roro in admissions regarding discharge. Pt will need new COVID test to return. Plan: [facility] skilled today Rafia Perez FURNACE INSTALLER HELPER, SIDE PANEL HANGER
--- NOTE | 2021-03-07 15:12 | PCM.DC.SUM ---
Documented by User: Jeannette King NP, DIRECTOR MEETINGS-C 03/07/21 15:17 Providers Date of Admission: 03/05/21 Date of Discharge: 03/07/21 Primary Care Physician: Dr. Burak Sampson MD Consultations 03/05/21 17:12 Consult: Orthopedics Routine Consulting Provider: Mikal Moran Reason for Consult: right hip fracture EMERGENT Consult: No MD Notified: Yes Date Notified: 03/05/21 Time Notified: 14:58 Method of Notification: Verbal Reason For Visit: RIGHT HIP FRACTURE Diagnosis Discharge Diagnosis (1) Closed intertrochanteric fracture of right hip: Status: Acute Code(s): S72.141A - Displaced intertrochanteric fracture of right femur, initial encounter for closed fracture Qualifiers: Encounter type: initial encounter Fracture alignment: displaced Qualified Code(s): S72.141A - Displaced intertrochanteric fracture of right femur, initial encounter for closed fracture (2) S/P hip hemiarthroplasty: Status: Acute Code(s): Z96.649 - Presence of unspecified artificial hip joint Medications at Discharge Home Medications potassium chloride [Klor-Con M20] 20 meq PO BID 02/04/17 acetaminophen 1,000 mg PO Q8H PRN PRN tab 03/08/17 multivitamin 1 ea PO DAILY 09/04/20 aspirin 81 mg PO DAILY@0800 03/05/21 furosemide 20 mg PO DAILY 03/05/21 gabapentin 300 mg PO DAILY 03/05/21 metoprolol tartrate 12.5 mg PO BID 03/05/21 senna-docusate sodium 2 tab PO BID 03/05/21 trazodone 50 mg PO QHS 03/05/21 oxycodone 5 mg PO Q4H PRN PRN 2 Days #5 tab 03/07/21 rivaroxaban [Xarelto] 10 mg PO DINNER 14 Days #14 tab 03/07/21 Hospital Course Operations - (cemented hemiarthroplasty right hip 03/06/2021) Procedures 2-D Echocardiogram Summary of Care Provided Minutes Spent on Discharge: 35 Hospital Course: Patient is an 86-year-old female admitted 03/05/2021 secondary to fall resulting in right hip fracture. 1. Acute traumatic right hip fracture status post cemented hemiarthroplasty right hip 03/06/[address] Song- orthopedic medicine following. PT/OT. As needed pain regimen. Return to SNF with orthopedic follow-up in 2 weeks. Palliative consult at SNF. Xarelto 10 mg daily for 2 weeks for DVT prophylaxis. Then resume aspirin 81 mg daily. 2. Postoperative atrial fibrillation with RVR, underlying paroxysmal atrial fibrillation-on metoprolol at baseline. Initiated on digoxin, patient converted to sinus rhythm overnight. Preoperative echocardiogram demonstrates an EF of 60%, stage I diastolic dysfunction, moderate pulmonary hypertension with pulmonary artery systolic pressure 56 mmHg, small pericardial effusion. Do not feel patient is a candidate for anticoagulation due to significant dementia with history of falls. Plan for prophylactic dose of Xarelto at discharge for 2 weeks following orthopedic surgery, then resume daily aspirin regimen. Blood pressure borderline, further digoxin discontinued. Continue home metoprolol regimen. 3. History of chronic back pain with history of compression fractures- PRN Tylenol. PT/OT. Nighttime baclofen discontinued as this may increase confusion/lethargy. 4. Severe protein calorie malnutrition-as evidenced by cachectic appearance, low BMI, evidence of muscle and fat loss. Nutrition consulted during admission. 5. Hypertension-on metoprolol. 6. Hyperlipidemia-not on agent. 7. Alzheimer's dementia, unclear behavioral disturbance history-on memantine, donepezil. Physical Exam Const no apparent distress Orientation / Consciousness: other Other Details: drowsy Nutritional Appearance: cachectic HEENT normocephalic Mouth: dry mucous membranes Eyes PERRL, EOMs intact bilaterally and conjunctivae normal Neck no lymphadenopathy Resp normal respiratory effort and clear to auscultation bilaterally Cardio regular rate, regular rhythm and no murmurs Peripheral Pulses: pulses 2+ throughout GI normal to inspection, nondistended, normoactive bowel sounds, non-tender and non-distended Extremity normal to inspection Skin no rashes or lesions noted Lesions: no lesions Rashes: no rashes Trauma: no lacerations or abrasions Neuro CN's II-XII intact bilaterally, no focal motor deficits, no sensory deficits noted and deep tendon reflexes 2+ bilaterally Psych mental status grossly normal and affect normal Patient seen and examined prior to discharge. Physical assessment as noted above. Patient is stable for discharge with follow up recommendations as noted above. This patient was seen by FLORESITA Gillespie under the supervision of Dr. Caruso. Weight / BMI Weight Weight: 92 lb 13.034 oz Body Mass Index (BMI) 19.3 ABG / Lab / Microbiology Data Result Diagrams: 03/07/21 05:50 03/07/21 05:50 Laboratory: Laboratory Results - last 24 hr 03/07/21 05:50: WBC 10.0, RBC 3.31 L, Hgb 10.0 L, Hct 32.9 L, MCV 99.4 H, MCH 30.2, MCHC 30.4 L D, RDW Std Deviation 52.1 H, RDW Coeff of Jasmin 14.4, Plt Count 144 L, MPV 11.1, Immature Gran % (Auto) 0.500, Neut % (Auto) 89.5 H, Lymph % (Auto) 3.0 L, [place] % (Auto) 6.8, Eos % (Auto) 0.0, Baso % (Auto) 0.2, Absolute Neuts (auto) 9.0 H, Absolute Lymphs (auto) 0.30 L, Nucleated RBC % 0, Differential Comment SCANNED 03/07/21 05:50: Sodium 145, Potassium 3.7, Chloride 114 H, Carbon Dioxide 25.0, Anion Gap 6, BUN 17, Creatinine 0.50 L, Estim Creat Clear Calc 27.83, Est GFR (MDRD) Af Amer 152, Est GFR (MDRD) Non-Af 126, BUN/Creatinine Ratio 34.2 H, Glucose 128 H, Calcium 8.6 Microbiology: Microbiology 03/05/21 12:52 Nasal Secretion SARS-CoV-2 Antigen (Rapid) - Final Radiography Diagnostic Testing: Radiology Impression Hip X-Ray 03/07/21 09:25 IMPRESSION: Uncomplicated right hip arthroplasty Electronically Signed: Ernesto Villalobos DO at 10:27 EDT Tel , Service support , Meaningful Use Info Meaningful Use Diagnoses (Choose all that apply): None applicable Discharge Plan Admission Admit Date/Time: 03/05/21 15:00 Primary Reason for Your Visit: Right hip fracture Attending Provider: Sweetie Caruso Primary Care Provider: Burak Sampson Chi Consulting Providers: Mikal Moran Instructions Additional Instructions / Restrictions: Weightbearing as tolerated, no abduction for 6 weeks. Discharge Orders/Prescriptions Prescriptions: New Xarelto 10 mg Tablet 10 mg PO DINNER 14 Days Qty: 14 RF: 0 oxycodone 5 mg Tablet 5 mg PO Q4H PRN PRN (Reason: Pain Score 4-5) 2 Days Qty: 5 RF: 0 Continued potassium chloride [Klor-Con M20] 20 MEQ tablet,ER particles/crystals 20 meq PO BID RF: 0 acetaminophen 500 MG tablet 1,000 mg PO Q8H PRN PRN (Reason: Mild Pain (-08/31)) RF: 0 multivitamin 1 EACH tablet 1 ea PO DAILY RF: 0 trazodone 50 mg tablet 50 mg PO QHS RF: 0 gabapentin 300 mg capsule 300 mg PO DAILY RF: 0 furosemide 20 mg tablet 20 mg PO DAILY RF: 0 senna-docusate sodium Tablet 2 tab PO BID RF: 0 metoprolol tartrate 25 MG tablet 12.5 mg PO BID RF: 0 Held aspirin 81 MG tablet,chewable 81 mg PO DAILY@0800 RF: 0 Hold Instructions: Resume on 03/22/21. Hold while on Xarelto Discontinued baclofen 10 MG tablet 10 mg PO QHS RF: 0 Hold Instructions: Resume on 03/22/21. Hold while on xarelto Referrals / Follow Up: Carlos Song DO [STAFF PHYSICIAN] - Within 2 Weeks Burak Sampson Chi, MD [Primary Care Provider] - In 1 Week Disposition Disposition (needs filled in before D/C Order can be placed): Senior Living Facility Documented by User: Dr. Sweetie Caruso MD 03/09/21 07:39 Providers Date of Admission: 03/05/21 Reason For Visit: RIGHT HIP FRACTURE Medications at Discharge Home Medications potassium chloride [Klor-Con M20] 20 meq PO BID 02/04/17 acetaminophen 1,000 mg PO Q8H PRN PRN tab 03/08/17 multivitamin 1 ea PO DAILY 09/04/20 aspirin 81 mg PO DAILY@0800 03/05/21 furosemide 20 mg PO DAILY 03/05/21 gabapentin 300 mg PO DAILY 03/05/21 metoprolol tartrate 12.5 mg PO BID 03/05/21 senna-docusate sodium 2 tab PO BID 03/05/21 trazodone 50 mg PO QHS 03/05/21 oxycodone 5 mg PO Q4H PRN PRN 2 Days #5 tab 03/07/21 rivaroxaban [Xarelto] 10 mg PO DINNER 14 Days #14 tab 03/07/21 ABG / Lab / Microbiology Data Result Diagrams: 03/07/21 05:50 03/07/21 05:50 Discharge Plan Admission Admit Date/Time: 03/05/21 15:00 Primary Reason for Your Visit: Right hip fracture Attending Provider: Sweetie Caruso Primary Care Provider: Burak Sampson Chi Consulting Providers: Mikal Moran Instructions Additional Instructions / Restrictions: Weightbearing as tolerated, no abduction for 6 weeks. Discharge Orders/Prescriptions Prescriptions: New Xarelto 10 mg Tablet 10 mg PO DINNER 14 Days Qty: 14 RF: 0 oxycodone 5 mg Tablet 5 mg PO Q4H PRN PRN (Reason: Pain Score 4-5) 2 Days Qty: 5 RF: 0 Continued potassium chloride [Klor-Con M20] 20 MEQ tablet,ER particles/crystals 20 meq PO BID RF: 0 acetaminophen 500 MG tablet 1,000 mg PO Q8H PRN PRN (Reason: Mild Pain (1-3/10)) RF: 0 multivitamin 1 EACH tablet 1 ea PO DAILY RF: 0 trazodone 50 mg tablet 50 mg PO QHS RF: 0 gabapentin 300 mg capsule 300 mg PO DAILY RF: 0 furosemide 20 mg tablet 20 mg PO DAILY RF: 0 senna-docusate sodium Tablet 2 tab PO BID RF: 0 metoprolol tartrate 25 MG tablet 12.5 mg PO BID RF: 0 Held aspirin 81 MG tablet,chewable 81 mg PO DAILY@0800 RF: 0 Hold Instructions: Resume on 03/22/21. Hold while on Xarelto Discontinued baclofen 10 MG tablet 10 mg PO QHS RF: 0 Hold Instructions: Resume on 03/22/21. Hold while on xarelto Referrals / Follow Up: Carlos Song DO [STAFF PHYSICIAN] - Within 2 Weeks Burak Sampson Chi, MD [Primary Care Provider] - In 1 Week Disposition Disposition (needs filled in before D/C Order can be placed): Senior Living Facility Charges/Coding Addendum Addendum: This patient was seen in conjunction with Jeannette King. I have independently interviewed and examined the patient and reviewed pertinent historical, laboratory, and other data. I have reviewed her note and concur with her documentation 86-year-old female, resident in a [facility] was admitted after a fall with right hip fracture. Patient underwent right hip cemented hemiarthroplasty on 02/22 9. Postoperatively, she went into A. fib with RVR. She was started on digoxin and converted to normal sinus rhythm overnight. Patient continued to be stable. She was seen by PT and OT and skilled for discharge back to [facility] facility Physical exam: General: Appeared frail, oriented to self, in moderate pain HEENT: Atraumatic Oral: Dry mucosa Neck: Supple Lungs: Clear to auscultation Cardiovascular: HS I+II, regular, no murmurs Abdomen: Bowel Sounds Present, Soft, Non Tender Extremities: Dressing intact, tenderness over the right hip Visit Charges Inpatient E&M: [id number] Disch Hosp
--- NOTE | 2021-03-07 15:41 | PHA.DC.MR ---
Pharmacy Service has performed discharge medication reconciliation for this patient. The patient's discharge medication list was reviewed for discrepancies and discrepancies were resolved. Home Medications potassium chloride [Klor-Con M20] 20 meq PO BID 02/04/17 acetaminophen 1,000 mg PO Q8H PRN PRN tab 03/08/17 multivitamin 1 ea PO DAILY 09/04/20 aspirin 81 mg PO DAILY@0800 03/05/21 furosemide 20 mg PO DAILY 03/05/21 gabapentin 300 mg PO DAILY 03/05/21 metoprolol tartrate 12.5 mg PO BID 03/05/21 senna-docusate sodium 2 tab PO BID 03/05/21 trazodone 50 mg PO QHS 03/05/21 oxycodone 5 mg PO Q4H PRN PRN 2 Days #5 tab 03/07/21 rivaroxaban [Xarelto] 10 mg PO DINNER 14 Days #14 tab 03/07/21
--- NOTE | 2021-03-07 15:43 | CASEMGMT ---
Addendum entered by Rafia Perez 03/07/21 16:19: TEE faxed COVID test to [facility]. TEE received call from Roro in admissions at [facility] stating pt needs to be at their facility by 6:00pm tonight. TEE informed Roro that pt's son Barrera was going to be at [facility] around 5:00pm to see pt before she discharges so this worker was going to arrange transportation around that time. Roro states pt's son Barrera can see pt at [facility]. TEE accessed trip assist and arranged transportation via cot for 5:00pm. Transportation form completed and placed on SNF folder and copy on pt's chart. TEE updated RN. TEE placed a call to Roro at [facility] and updated her on transportation time. TEE placed a call to pt's son Barrera and left message that transportation is arranged for 5:00pm per [facility] request and he can see pt at [facility] tonight. Plan: [facility] skilled today with Physician's transportation pt via cot at 5:00pm Original Note: Social Work Note TEE received update that pt's son Barrera is on the phone with questions regarding Palliative Care. TEE spoke with Barrera. TEE explained screening tool and why Palliative was ordered. TEE informed Barrera that Palliative just wants to discuss their services with him to see if Barrera is agreeable to Palliative Services. Barrera states he understands pt will be discharged back to [facility] today. TEE confirmed this. Barrera states he will be at [facility] around 5:00pm, requests transportation be arranged for after 5:00pm. TEE informed Barrera that this worker can arrange transportation for after 5:00pm, will call Barrera with transportation time. Barrera states understanding. TEE faxed completed discharge paperwork to Roro in admissions at [facility] including transfer to extended care facility, signed medication list, any scripts, COVID tool. Original in SNF Folder and copy on pt's chart. TEE will fax COVID test today when available. TEE to arrange transportation. Plan: [facility] skilled today Rafia Perez ABRASIVE BAND WINDER, SAFETY INSPECTOR
[2021-03-07] MEDS: Rivaroxaban 10 MG Tablet PO (16:36)
--- NOTE | 2021-03-07 16:39 | CASEMGMT ---
Social Work Note SW also attempted to call pt's son Barrera on home phone to provide update on transportation, no answer. Rafia Perez VETERINARY MEDICINE TEACHER, STEAM PRESSURE CHAMBER OPERATOR
--- NOTE | 2021-03-07 17:26 | NURSING ---
report called to [place] at [facility]
== END 2021-03-07 17:15 | DRG 521 ==
LOC: ED 14:36 → MS3 15:12
PROVIDERS: Anesthesiology; Nurse Practitioner Family; Orthopaedic Surgery; Admitting Provider Internal Medicine; Emergency Provider Emergency Medicine; PCP Family Medicine Geriatric Medicine; Visit Provider Internal Medicine
PROC: 0SRR019 Replacement of Right Hip Joint, Femoral Surface with Metal Synthetic Substitute, Cemented, Open Approach (ICD-10-PCS; CPT 27125; principal; 2021-03-06 07:40)
DX: S72.141A Displaced intertrochanteric fracture of right femur, initial encounter for closed fracture (principal); E43 Unspecified severe protein-calorie malnutrition; Z68.1 Body mass index [BMI] 19.9 or less, adult; I97.191 Other postprocedural cardiac functional disturbances following other surgery; I48.0 Paroxysmal atrial fibrillation; W19.XXXA Unspecified fall, initial encounter; Y92.129 Unspecified place in nursing home as the place of occurrence of the external cause; G30.9 Alzheimer's disease, unspecified; F02.80 Dementia in other diseases classified elsewhere, unspecified severity, without behavioral disturbance, psychotic disturbance, mood disturbance, and anxiety; I10 Essential (primary) hypertension; E78.5 Hyperlipidemia, unspecified; G89.29 Other chronic pain; Z79.82 Long term (current) use of aspirin; Z79.899 Other long term (current) drug therapy; Z87.81 Personal history of (healed) traumatic fracture; Z91.81 History of falling
CPT/HCPCS: 36415; 70450; 71045; 72125; 73502; 73700; 80048; 84484; 85025; 85730; 86850; 86900; 86901; 87426; 88305; 88311; 93005; 93306; 97163; 97166; 97802; 99284; C1776; J7030; A4216; J2405

== ENCOUNTER → 2021-03-30 05:00 | Outpatient (REF) | payer MEDICARE, OTHER, SELFPAY ==
[2021-03-30 08:48] LABS: Hematocrit 37.8 % (37-47); Hemoglobin 10.8 g/dL (12.0-15.0); Mean Corp Hgb Conc 28.6 g/dL (32-36); Mean Corpuscular Hgb 28.6 pg (27.0-32.0); Mean Corpuscular Volume 100.3 fL (81-99); Platelet Count 401 K/mm3 (150-450); RBC Distribution Width CV 17.7 % (11.6-14.6); RBC Distribution Width SD 64.2 fl (35.1-43.9); Red Blood Count 3.77 M/mm3 (4.2-5.4); White Blood Count 4.3 K/mm3 (4.4-11.0)
[2021-03-30 08:59] LABS: BUN 20 mg/dL (7-18); Calcium,Total 8.9 mg/dL (8.5-10.1); Chloride 109 mmol/L (98-107); Creatinine, Serum 0.44 mg/dL (0.55-1.02); EST Glomerular Filtration Rate 147 mL/min (>60); Est Glom Filt Rate - Afr Amer 178 mL/min (>60); Glucose 81 mg/dL (74-106); Potassium 4.1 mmol/L (3.5-5.1); Sodium Level 143 mmol/L (136-145)
[2021-03-30 09:00] LABS: Anion Gap 6 (5-15)
== END ==
LOC: OLS.WCC 05:00
PROVIDERS: PCP Family Medicine Geriatric Medicine; Visit Provider Family Medicine
DX: I10 Essential (primary) hypertension (principal); Z79.899 Other long term (current) drug therapy
CPT/HCPCS: 36415; 80048; 85027